=== PATIENT | female | born 1935 | race Caucasian/White ===

== ENCOUNTER 2022-06-15 10:35 | Inpatient (IN) | payer MEDICARE, OTHER, SELFPAY ==
--- NOTE | 2022-06-15 | ECHO_ITS ---
Patient Info Name: Chloe Fontaine Age: 87 years : 1935 Gender: Female Ht: 63 in Wt: 196 lbs BSA: 2.03 m2 HR: 68 bpm BP: 149 / 59 mmHg Heart Rhythm: Sinus Rhythm Technical Quality: Good Exam Date: 06/15/2022 4:07 PM Exam Location: [facility] Pulmonary Exam Room: [place] [id number] Patient Status: Emergency Admit Date: 06/15/2022 Staff Ordering Physician: James Whatley Game Trapper: Pati Kelley RDCS Attending Provider: Karan Garrett MD Referring Physician: Chacorta SWIFT; Exam Type: CA echo doppler color flow Study Info Indications - BILATERAL KENY HX/O AFIB CHF Complete two-dimensional, color flow and Doppler transthoracic echocardiogram is performed. Summary 1. Complete two-dimensional, color flow and Doppler transthoracic echocardiogram is performed. 2. Left ventricular systolic function is normal, estimated at 60-65%. 3. There is moderate concentric increased left ventricular wall thickness. 4. The left ventricular diastolic function is grade I diastolic dysfunction. 5. Linear artifact in right ventricle suggestive of catheter(s), pacemaker lead(s), or ICD lead(s). 6. Right ventricular systolic function is normal. 7. Right atrial chamber dimension is moderately enlarged. 8. Linear artifact in the right atrium suggestive of catheter(s), pacemaker lead(s), or ICD lead(s). 9. There is mild to moderate tricuspid valve regurgitation. 10. Dilated inferior vena cava with no collapse upon inspiration consistent with elevated right atrial pressure, 15 mmHg. Left Ventricle Left ventricular chamber dimension is normal. Left ventricular systolic function is normal, estimated at 60-65%. There is moderate concentric increased left ventricular wall thickness. The left ventricular diastolic function is grade I diastolic dysfunction. Right Ventricle Linear artifact in right ventricle suggestive of catheter(s), pacemaker lead(s), or ICD lead(s). Right ventricular chamber dimension is normal. Right ventricular systolic function is normal. Left Atria Left atrial chamber dimension is normal. Right Atria Linear artifact in the right atrium suggestive of catheter(s), pacemaker lead(s), or ICD lead(s). Right atrial chamber dimension is moderately enlarged. Aortic Valve The aortic valve is trileaflet. There is no aortic valve stenosis. There is no aortic valve regurgitation. There is mild aortic valve calcification. Pulmonic Valve The pulmonic valve is not well visualized. Mitral Valve The mitral valve has normal leaflets. There is no mitral valve stenosis. There is trace mitral valve regurgitation. Tricuspid Valve The tricuspid valve leaflets are normal. There is mild to moderate tricuspid valve regurgitation. Pericardium/Pleural There is no pericardial effusion. Inferior Vena Cava Dilated inferior vena cava with no collapse upon inspiration consistent with elevated right atrial pressure, 15 mmHg. Aorta The aortic root size at the sinus of Valsalva is normal. Left Ventricular Outflow Tract Name Value Normal LVOT 2D LVOT Diameter 2.0 cm LVOT Doppler LVOT Peak Gradient
--- NOTE | ~2022-06-15 | XR_ITS ---
XR chest 1V portable DATE: 06/25/2022 08:47 INDICATION: Left lateral chest pain TECHNIQUE: Portable upright AP chest on 06/25/2022 at 0831 hours COMPARISON: 06/22/2022 CT chest FINDINGS: Left dual-lead pacemaker device with leads overlying right atrium and right ventricle. Cardiomegaly. Aortic calcification. There is pulmonary vascular congestion and redistribution. There are bilateral mild pleural effusions , right greater than left. There are infiltrates and/or atelectasis in the lower lung zones, right gr eater than left. No pneumothorax. Diffuse osteopenia. IMPRESSION: Congestive heart failure Bilateral lower lung infiltrates and/or atelectasis, right greater than left Reviewed, dictated and finalized at location B. Y OPERATOR
--- NOTE | ~2022-06-15 | US_ITS ---
EXAMINATION: US venous doppler [facility] DATE: 06/15/2022 14:43 INDICATION: Bilateral lower limb swelling TECHNIQUE: Grayscale ultrasound images without and with compression and Doppler ultrasound images of the bilateral lower extremity veins were obtained. COMPARISON: None. FINDINGS: The visualized portions of right common femoral vein, profunda (deep) femoral vein, femoral vein, pop liteal vein, posterior tibial veins, peroneal veins, gastrocnemius vein and greater saphenous vein ou tflow are patent. The visualized portions of left common femoral vein, profunda femoral vein, femoral vein, popliteal v ein, posterior tibial veins, peroneal veins, gastrocnemius vein and greater saphenous vein outflow ar e patent. IMPRESSION: 1. No deep venous thrombosis in either lower limb. Reviewed, dictated and finalized at location A. HIATRIC RN
--- NOTE | ~2022-06-15 | CT_ITS ---
EXAMINATION:CT diagnostic chest wo con DATE: 06/22/2022 18:23 INDICATION: Shortness of breath. Right lower lobe airspace disease. TECHNIQUE: Computed tomography (CT) of the chest was performed without intravenous contrast. Automate d exposure control and iterative reconstruction technique were employed. The dose-length product (DLP ) was 342.56 mGy-cm. COMPARISON: Chest 2 views 06/15/2022 FINDINGS: There are small pleural effusions, right worse than left. There is atelectasis in the infer ior lungs with a peripheral and dependent predominance. A calcified left lung nodule and calcified le ft hilar and mediastinal lymph nodes are consistent with old granulomatous disease. There are nodules in the thyroid measuring up to 16 mm. Cardiomegaly is noted. There are coronary artery calcification s. There is a left chest wall pacer with leads in the right atrium and right ventricle. No pericardia l effusion. Calcifications in the spleen are consistent with old granulomatous disease. There are henna dging endplate osteophytes at multiple levels in the spine, consistent with diffuse idiopathic skelet al hyperostosis (DISH). IMPRESSION: 1. Small pleural effusions, right worse than left. 2. Cardiomegaly. 3. Multinodular goiter. Further evaluation is likely not needed given the patient's age. Reviewed, dictated and finalized at location A. HAND IMPRESSION: 1. Small pleural effusions, right worse than left. 2. Cardiomegaly. 3. Multinodular goiter. Further evaluation is likely not needed given the patie nt's age.
--- NOTE | ~2022-06-15 | XR_ITS ---
XR chest 2V 06/15/2022 12:42 Indication: Pulmonary edema Procedure: 2 view chest Comparison: No prior studies for comparison. Findings: There is right lower lobe airspace disease, compatible with pneumonia. Heart size normal. P acemaker leads are in expected position. There is atherosclerosis of the aorta. Cardiomegaly. No pneu mothorax. Impression: 1: Right lower lobe airspace disease, compatible with pneumonia. Reviewed, dictated and finalized at location B. RECLAIM PROCESSOR Impression: 1: Right lower lobe airspace disease, compatible with pneumonia.
--- NOTE | ~2022-06-15 | US_ITS ---
EXAMINATION: US renal BI DATE: 06/22/2022 12:42 INDICATION: Acute kidney injury. TECHNIQUE: Multiple ultrasound grayscale images of the kidneys were obtained. COMPARISON: None. FINDINGS: The right kidney measures 10.5 x 4.5 x 5.6 cm. The left kidney measures 9.5 x 4.2 x 6.2 cm. The kidne ys demonstrate normal parenchymal echogenicity. There is no hydronephrosis. The bladder is normal. IMPRESSION: 1. Normal kidneys. No hydronephrosis. Reviewed, dictated and finalized at location A. DUST SPRAYER
[2022-06-15 10:49] VITALS: BP 149/59; PULSE 62; RESP 18; TEMP 36.6; O2SAT 99
--- NOTE | 2022-06-15 12:07 | ECG_ITS ---
Measurements Intervals [place] Rate: 60 P: -22 [place]: 248 QRS: -57 QRSD: 142 T: 20 QT: 456 QTc: 458 Interpretive Statements ELECTRONIC ATRIAL PACEMAKER RIGHT BUNDLE BRANCH BLOCK LEFT ANTERIOR FASCICULAR BLOCK LOW VOLTAGE- PRECORDIAL LEADS ABNORMAL ECG NO PREVIOUS ECG AVAILABLE FOR COMPARISON Electronically Signed On 06-15-2022 12:47:29 TARIFF EXPERT by Yeison Hensley D.O.
--- NOTE | 2022-06-15 12:27 | ED.GENADULT ---
HPI - General Adult General Chief complaint: Extremity Problem,Nontraumatic Stated complaint: bilat leg swelling Time Seen by Provider: 06/15/22 12:01 History of Present Illness HPI narrative: 87-year-old female presenting to the emergency department for evaluation of worsening lower extremity swelling. Patient does have a history of congestive heart failure. Patient had a recent hospitalization at an outside hospital for pneumonia. At that time patient had some of her medications changed. Patient had been taking furosemide but this was stopped. Patient still taking furosemide. Family states that the patient has had worsening lower extremity edema. Patient has recently moved to the area and has no local primary care physician or colorer. Related Data Home Medications Medication Instructions Recorded Confirmed allopurinol 300 mg tablet 300 mg PO DAILY 06/15/22 06/15/22 amlodipine 10 mg tablet 10 mg PO DAILY 06/15/22 06/15/22 atorvastatin 40 mg tablet 40 mg PO DAILY 06/15/22 06/15/22 carvedilol 6.25 mg tablet 6.25 mg PO BID 06/15/22 06/15/22 estradiol 0.01% (0.1 mg/gram) 1 applic vaginal PRN PRN Vaginal 06/15/22 06/15/22 vaginal cream Dryness glipizide 5 mg tablet 5 mg PO BID 06/15/22 06/15/22 lisinopril 20 mg tablet 20 mg PO DAILY 06/15/22 06/15/22 menthol 0.44 %-zinc oxide 20.6 % 1 applic topical QID PRN Wound Care 06/15/22 06/15/22 topical ointment (Calmoseptine) torsemide 20 mg tablet 20 mg PO QAM 06/15/22 06/15/22 Allergies Allergy/AdvReac Type Severity Reaction Status Date / Time clarithromycin Allergy Swelling Verified 06/15/22 17:52 of Lip/Tongue/Throat doxycycline Allergy Swelling Verified 06/15/22 17:52 of Lip/Tongue/Throat esomeprazole Allergy Swelling Verified 06/15/22 17:52 of Lip/Tongue/Throat iron Allergy Swelling Verified 06/15/22 17:52 of Lip/Tongue/Throat magnesium Allergy Swelling Verified 06/15/22 17:52 of Lip/Tongue/Throat naproxen Allergy Swelling Verified 06/15/22 17:52 of Lip/Tongue/Throat Penicillins Allergy Swelling Verified 06/15/22 17:52 of Lip/Tongue/Throat Sulfa (Sulfonamide Allergy Swelling Verified 06/15/22 17:52 Antibiotics) of Lip/Tongue/Throat tetracycline Allergy Swelling Verified 06/15/22 17:52 of Lip/Tongue/Throat Review of Systems Review of Systems: CONSTITUTIONAL: Denies fever, chills, or sweats. EYES: Denies visual changes, redness, or discharge. ENT: Denies rhinorrhea, congestion, sore throat, or otalgia. CARDIOVASCULAR: Denies any chest pain or shortness of breath but does have lower extremity. RESPIRATORY: Denies cough or dyspnea. GASTROINTESTINAL: Denies abdominal pain, nausea, vomiting, or diarrhea. GENITOURINARY: Denies dysuria or hematuria. SKIN: Denies rash or itching. MUSCULOSKELETAL: Denies back pain, joint pain, or myalgia. NEUROLOGIC: Denies headache, numbness, or weakness. [facility] Past Medical History Medical History Blepharitis of both eyes Bronchitis Carpal tunnel syndrome CHF (congestive heart failure) Diabetes 1.5, managed as type 2 Hypertension Left leg DVT Pacemaker Pancreatitis Pneumonia Rheumatic fever Tendinitis Surgical History Surgical History History of appendectomy History of hysterectomy History of left knee replacement S/P cholecystectomy Status post total hip replacement, right Family History Family History (Updated 06/15/22 @ 14:54 by PAYTON Freedman) Mother Acute myocardial infarction Diabetes mellitus Brain cancer Father Acute myocardial infarction Cerebrovascular accident Heart disease Hypertension Social History Social History Social History: Patient currently lives with her son. Patient does have 3 sons however want just passed
[2022-06-15 12:37] LABS: Basophils Absolute Auto 0.1 K/mm3 (0.0-0.1); Basophils Percent Auto 0.8 % (0.2-1.2); Eosinophils Absolute Auto 0.3 K/mm3 (0-0.3); Hematocrit 44.6 % (37.0-47.0); Hemoglobin 14.3 g/dL (12.0-15.0); Immature Granulocyte Absolute 0.03 K/mm3 (0.00-0.031); Immature Granulocyte Percent A 0.4 % (0-0.5); Lymphocytes Percent Auto 22.6 % (18.3-44.2); Mean Corpuscular HGB Conc 32.1 g/dl (32-36); Mean Corpuscular Hemoglobin 26.7 pg (26-34); Mean Corpuscular Volume 83.4 fl (80-100); Mean Platelet Volume 12.2 fl (7.4-10.4); Monocytes Absolute Auto 0.8 K/mm3 (0.1-0.6); Monocytes Percent Auto 9.6 % (2.6-8.5); Neutrophils Absolute Auto 5.3 K/mm3 (1.3-6.7); Neutrophils Percent Auto 62.6 % (45.5-73.1); Platelet Count Result 176 k/mm3 (150-375); Red Blood Count 5.35 M/mm3 (4.2-5.4); Red Cell Distribution Width 17.5 % (11.5-14.5); White Blood Count 8.4 K/mm3 (4.5-10.0)
[2022-06-15 12:46] LABS: Alanine Aminotransferase 51 U/L (6-35); Albumin Level 2.8 g/dL (3.5-5.1); Alkaline Phosphatase 118 U/L (38-126); Anion Gap 3 mmol/L (8-16); Aspartate Amino Transferase 69 U/L (14-36); Bilirubin,Total 0.5 mg/dL (0.2-1.3); Blood Urea Nitrogen 21 mg/dL (7-17); Calcium 8.7 mg/dL (8.4-10.2); Carbon Dioxide 28 mmol/L (22-30); Chloride 106 mmol/L (98-107); Estimated CRCL calculation 42 ml/min; Estimated Glomerular Filt Rate 59; Glucose 94 mg/dL (65-110); Sodium 137 mmol/L (137-145)
[2022-06-15 12:54] LABS: NT Pro B Type Natriuretic Pept 751 pg/mL (5-100)
--- NOTE | 2022-06-15 13:30 | PM.IMHP ---
H&P: HPI History of Present Illness Date/Time: 06/15/22 13:30 Chief Complaint: Bilateral lower extremity edema Narrative: Patient is an 87-year-old female with the past medical history hypertension, gout, diabetes, AFib, hyperlipidemia who presented to the ED with complaints of bilateral lower extremity edema for the past 3 days. Patient was living with her son in [place] however he had from cancer and patient had moved to the area with her other son. Patient stated that she has been taking torsemide and was told to stop the Lasix. She has also been putting on compression hose. It was noted that the patient did have a reddening area to the right lower extremity that was wrapped in a gauze. Patient's son stated that he feels that she scratched herself. Left lower leg also has some reddened area. Patient's son did draw around the redness, which did seem to be bigger. Patient did have significant pain is an was taken off her John does. Currently she has 3 to 4+ pitting edema bilaterally. Patient did state that she had a cough however it was pretty dry at this time. She denies doing anything different or eating any different. She did state that she was short of breath with any extraneous walking. She has been pretty weak as well. Patient was treated recently for pneumonia about a week and half ago at a hospital down [facility], which the patient did state that she feels better from that. She stated that she had a cough when she was being treated for it. Patient does have diabetes and checks her sugar twice a day. It was also reported that the patient has gained 18 lb in last month. She denies any chest pain, nausea, vomiting, diarrhea, constipation, fatigue, lightheadedness, dizziness, abdominal pain. Her sons did state that she is at baseline walks with a walker and can get herself up out of bed by herself. He did state that she has a hard time getting herself back into bed with her legs. Patient is being admitted to the hospitalist service under observation Review of Systems Review of Systems: All systems reviewed & are unremarkable except as noted in HPI and below PMFSH Past Medical History Medical History Blepharitis of both eyes Bronchitis Carpal tunnel syndrome CHF (congestive heart failure) Diabetes 1.5, managed as type 2 Hypertension Left leg DVT Pacemaker Pancreatitis Pneumonia Rheumatic fever Tendinitis Surgical History Surgical History History of appendectomy History of hysterectomy History of left knee replacement S/P cholecystectomy Status post total hip replacement, right Family History Family History (Updated 06/15/22 @ 14:54 by PAYTON Freedman) Mother Acute myocardial infarction Diabetes mellitus Brain cancer Father Acute myocardial infarction Cerebrovascular accident Heart disease Hypertension Social History Social History Social History: Patient currently lives with her son. Patient does have 3 sons however want just . Patient just recently moved up here from [place] and is currently living in [place]. Patient wishes to be a full code at this time. Smoking status: Never smoker Alcohol intake: never Substance use: never Lack of Transportation: YES Lack of Food: Never True Current Housing: I Have Housing Concerned About Future Housing: No Difficulty Paying Gas/Electric Bills: No Difficulty Paying for Meds: No Currently Unemployed: YES Education: High School Diploma/GED Difficulty w/ Childcare or Family Care: No Living arrangements: with family Additional living arrangements comments: Lives with her son and daughter in law Occupation/Education: retired Additional occupation/education comments: farm Gender identity (if verbalized by the patient):
[2022-06-15] MEDS: FUROSEMIDE INJ 40 MG/4 ML VIAL IV PUSH ×2 (14:51→20:12)
[2022-06-15 16:45] LABS: SARS-CoV-2 RNA PCR Negative
[2022-06-15 17:02] LABS: Hemoglobin A1C 6.7 % (<5.7)
--- NOTE | 2022-06-15 17:25 | ADMGEN ---
This patient, Chloe Fontaine, was admitted to [facility] Surg Room 312-01. Patient/family oriented to hospital policies and general routines including ID bracelet, bed and alarms, visiting hours, pain management, procedures, bathroom and other care routines, personal items, smoking policy, room service/diet, and visiting hours. Information on how to activate the Rapid Response Team has been discussed. Patient/Family are encouraged to report perceived risks to care and to ask questions if they do not understand what they are told or what they should do.
[2022-06-15 17:30] VITALS: BMI 35.5
--- NOTE | 2022-06-15 17:30 | PC.NURSE ---
provider reviewed med list with pt and family in ED
[2022-06-15 18:14] LABS: Glucose Point of Care 113 mg/dl (65-105)
[2022-06-15 19:02] VITALS: BP 139/48; PULSE 61; RESP 18; TEMP 36.3; O2SAT 94
[2022-06-15 19:05] VITALS: PULSE 61
[2022-06-15] MEDS: glipiZIDE 5 MG TABLET PO (19:05)
[2022-06-15] MEDS: carvediloL 6.25 MG TABLET PO (19:05)
[2022-06-15 20:55] LABS: RBC Urine 0-2 /hpf (0-2); Squamous Epithelial Cell Urine Rare /hpf (Few); WBC Urine 0-3 /hpf
[2022-06-15 20:56] LABS: Add Urine Microscopic? YES; Appearance Urine Clear (Clear); Bilirubin Urine Negative (Negative); Blood Urine Trace-intact (Negative); Color Urine Yellow (Yellow); Glucose Urine UA Trace mg/dL (Negative); Ketones Urine Negative (Negative); Leukocyte Esterase Ur Negative LEU/UL (Negative); Nitrate Urine Negative (Negative); Protein Urine 3+ mg/dL (Negative); Urobilinogen Urine 0.2 mg/dL (<2.0); pH Urine 6.5 (5.0-9.0)
[2022-06-15 21:52] VITALS: BP 119/43; PULSE 60; RESP 20; TEMP 36.4; O2SAT 94
[2022-06-16 05:42] VITALS: BP 145/52; PULSE 60; RESP 18; TEMP 36.6; O2SAT 94
[2022-06-16 07:19] LABS: Basophils Absolute Auto 0.1 K/mm3 (0.0-0.1); Eosinophils Absolute Auto 0.3 K/mm3 (0-0.3); Eosinophils Percent Auto 3.8 % (0-4.4); Hematocrit 40.9 % (37.0-47.0); Hemoglobin 12.9 g/dL (12.0-15.0); Immature Granulocyte Absolute 0.03 K/mm3 (0.00-0.031); Immature Granulocyte Percent A 0.4 % (0-0.5); Lymphocytes Absolute Auto 1.93 K/mm3 (0.9-3.2); Lymphocytes Percent Auto 24.4 % (18.3-44.2); Mean Corpuscular HGB Conc 31.5 g/dl (32-36); Mean Corpuscular Hemoglobin 27.2 pg (26-34); Mean Corpuscular Volume 86.1 fl (80-100); Mean Platelet Volume 11.7 fl (7.4-10.4); Monocytes Absolute Auto 0.7 K/mm3 (0.1-0.6); Monocytes Percent Auto 9.1 % (2.6-8.5); Neutrophils Absolute Auto 4.9 K/mm3 (1.3-6.7); Neutrophils Percent Auto 61.3 % (45.5-73.1); Platelet Count Result 162 k/mm3 (150-375); Red Blood Count 4.75 M/mm3 (4.2-5.4); Red Cell Distribution Width 17.5 % (11.5-14.5); White Blood Count 7.9 K/mm3 (4.5-10.0)
[2022-06-16 07:26] LABS: Alanine Aminotransferase 41 U/L (6-35); Albumin Level 2.1 g/dL (3.5-5.1); Alkaline Phosphatase 113 U/L (38-126); Anion Gap 3 mmol/L (8-16); Aspartate Amino Transferase 50 U/L (14-36); Bilirubin,Total 0.4 mg/dL (0.2-1.3); Blood Urea Nitrogen 20 mg/dL (7-17); Calcium 8.4 mg/dL (8.4-10.2); Carbon Dioxide 27 mmol/L (22-30); Chloride 106 mmol/L (98-107); Estimated CRCL calculation 42 ml/min; Estimated Glomerular Filt Rate 59; Glucose 63 mg/dL (65-110); Potassium 3.6 mmol/L (3.4-5.0); Sodium 136 mmol/L (137-145)
[2022-06-16 07:37] LABS: Glucose Point of Care 80 mg/dl (65-105)
[2022-06-16 09:29] VITALS: PULSE 54
[2022-06-16] MEDS: amLODIPine BESYLATE 5 MG TABLET 10 MG PO (09:29)
[2022-06-16] MEDS: ATORVASTATIN 40 MG TABLET PO (09:29)
[2022-06-16] MEDS: glipiZIDE 5 MG TABLET PO (09:29)
[2022-06-16] MEDS: carvediloL 6.25 MG TABLET PO ×2 (09:29→16:57)
[2022-06-16] MEDS: FUROSEMIDE INJ 40 MG/4 ML VIAL IV PUSH ×2 (09:32→20:03)
[2022-06-16] MEDS: lisinopriL 20 MG TABLET PO (09:32)
[2022-06-16] MEDS: allopurinoL 300 MG TABLET PO (09:32)
[2022-06-16 09:36] LABS: Hepatitis B Surface Antigen Negative (Negative)
[2022-06-16 09:42] LABS: HAV RESULT Negative (Negative); Hepatitis B Core IgM Result Negative (Negative)
[2022-06-16 09:54] LABS: Hepatitis C Virus Antibody Negative (Negative)
[2022-06-16 11:28] LABS: Glucose Point of Care 139 mg/dl (65-105)
--- NOTE | 2022-06-16 13:30 | P.PNIM_ITS ---
Progress Note: A&P Assessment and Plan (1) Pneumonia: Qualifiers: Pneumonia type: due to unspecified organism Code(s): J18.9 - Pneumonia, unspecified organism Status: Acute Assessment and Plan: * Was recently treated for PNA at a different hospital about 1.5 week ago * Chest xray indicted PNA * Continue Levaquin, and vanco from ED * Sputum culture ordered * Blood cultures NGTD * WBC stable at 8.4 * Trend labs * Adjust therapy as indicated (2) CHF (congestive heart failure): Qualifiers: Heart failure chronicity: unspecified Heart failure type: unspecified Qualified Code(s): I50.9 - Heart failure, unspecified Code(s): I50.9 - Heart failure, unspecified Status: Acute Assessment and Plan: * BNP elevated at 751 * 40mg IV Lasix given in the ED * 4+ pitting edema bilaterally * Daily weights * Trend urine output * Continue metoprolol, lisinopril * Echo EF of 60-65% with a grade 1 diastolic heart failure * She has chronic diastolic heart failure with possible exacerbation * Continue IV Lasix 40mg IV * Hold home torsemide 20mg Daily * John stokes (3) Transaminitis: Code(s): R74.01 - Elevation of levels of liver transaminase levels Status: Acute Assessment and Plan: * AST/ALT elevated at 50/41 * Hep panel negative * Trend labs * Consider RUQ ultra sound (4) Hypertension: Code(s): I10 - Essential (primary) hypertension Status: Acute Assessment and Plan: * Current BP 145/52 * Continue Home amlodipine, carvedilol, lisinopril * Trend Blood pressure * Adjust therapy as indicated (5) Cellulitis: Code(s): L03.90 - Cellulitis, unspecified Status: Acute Assessment and Plan: * Bilateral lower extremity edema, redness, warmth and pain * Trend redness * Vanco on board * Wound care consult * WBC 7.9 * Trend labs (6) Diabetes 1.5, managed as type 2: Code(s): E13.9 - Other specified diabetes mellitus without complications Status: Acute Assessment and Plan: * Current glucose is 63 * Hold glipizide for now * Accu cheks AC/HS * ISS * trend glucose * A1c 6.7 * Adjust therapy as indicated * Hypoglycemia protocol (7) Neuropathy: Code(s): G62.9 - Polyneuropathy, unspecified Status: Acute Assessment and Plan: * Complaints of burning and pain * Started gabapentin Plan Spoke with the family regarding the anti-diabetic medications Time Spent With Patient Time with patient: Greater than 35 minutes Subjective Date/time seen: 06/16/221329 Interval history: 06/16/221329 Patient was resting in bed comfortably. Patient still complaining of warmth and tenderness of bilateral lower extremity. She does still have 3 to 4+ pitting edema bilaterally. Patient also complains of burning and pain with her legs. She denies any chest pain, shortness a breath, fevers, sweats, chills. She does still have some constipation. Will consult Cardiology. 06/15/22? 13:30 Patient is an 87-year-old female with the past medical history hypertension, gout, diabetes, AFib, hyperlipidemia who presented to the ED with complaints of bilateral lower extremity edema for the past 3 days.? Patient was living with her son in [place] however he had passed
--- NOTE | 2022-06-16 13:30 | PM.IMPN ---
Progress Note: A&P Assessment and Plan (1) Pneumonia: Qualifiers: Pneumonia type: due to unspecified organism Code(s): J18.9 - Pneumonia, unspecified organism Status: Acute Assessment and Plan: Was recently treated for PNA at a different hospital about 1.5 week ago Chest xray indicted PNA Continue Levaquin, and vanco from ED Sputum culture ordered Blood cultures NGTD WBC stable at 8.4 Trend labs Adjust therapy as indicated (2) CHF (congestive heart failure): Qualifiers: Heart failure chronicity: unspecified Heart failure type: unspecified Qualified Code(s): I50.9 - Heart failure, unspecified Code(s): I50.9 - Heart failure, unspecified Status: Acute Assessment and Plan: BNP elevated at 751 40mg IV Lasix given in the ED 4+ pitting edema bilaterally Daily weights Trend urine output Continue metoprolol, lisinopril Echo EF of 60-65% with a grade 1 diastolic heart failure She has chronic diastolic heart failure with possible exacerbation Continue IV Lasix 40mg IV Hold home torsemide 20mg Daily John stokes (3) Transaminitis: Code(s): R74.01 - Elevation of levels of liver transaminase levels Status: Acute Assessment and Plan: AST/ALT elevated at 50/41 Hep panel negative Trend labs Consider RUQ ultra sound (4) Hypertension: Code(s): I10 - Essential (primary) hypertension Status: Acute Assessment and Plan: Current BP 145/52 Continue Home amlodipine, carvedilol, lisinopril Trend Blood pressure Adjust therapy as indicated (5) Cellulitis: Code(s): L03.90 - Cellulitis, unspecified Status: Acute Assessment and Plan: Bilateral lower extremity edema, redness, warmth and pain Trend redness Vanco on board Wound care consult WBC 7.9 Trend labs (6) Diabetes 1.5, managed as type 2: Code(s): E13.9 - Other specified diabetes mellitus without complications Status: Acute Assessment and Plan: Current glucose is 63 Hold glipizide for now Accu cheks AC/HS ISS trend glucose A1c 6.7 Adjust therapy as indicated Hypoglycemia protocol (7) Neuropathy: Code(s): G62.9 - Polyneuropathy, unspecified Status: Acute Assessment and Plan: Complaints of burning and pain Started gabapentin Plan Spoke with the family regarding the anti-diabetic medications Time Spent With Patient Time with patient: Greater than 35 minutes Subjective Date/time seen: 06/16/221329 Interval history: 06/16/221329 Patient was resting in bed comfortably. Patient still complaining of warmth and tenderness of bilateral lower extremity. She does still have 3 to 4+ pitting edema bilaterally. Patient also complains of burning and pain with her legs. She denies any chest pain, shortness a breath, fevers, sweats, chills. She does still have some constipation. Will consult Cardiology. 06/15/22? 13:30 Patient is an 87-year-old female with the past medical history hypertension, gout, diabetes, AFib, hyperlipidemia who presented to the ED with complaints of bilateral lower extremity edema for the past 3 days.? Patient was living with her son in [place] however he had from cancer and patient had moved to the area with her other son.? Patient stated that she has been taking torsemide and was told to stop the Lasix.? She has also been putting on compression hose.? It was noted that the patient did have a reddening area to the right lower extremity that was wrapped in a gauze.? Patient's son stated that he feels that she scratched herself.? Left lower leg also has some reddened area.? Patient's son did draw around the redness, which did seem to be bigger.? Patient did have significant pain is an was taken off her John does.? Currently she has 3 to 4+ pitting edema bilaterally.? Malik
[2022-06-16 13:54] VITALS: BP 140/53; PULSE 59; RESP 16; TEMP 36.6; O2SAT 95
[2022-06-16] MEDS: polyethylene glycoL 3350 17 GM POWD.PACK PO (15:23)
[2022-06-16 16:11] LABS: Glucose Point of Care 66 mg/dl (65-105)
[2022-06-16 16:57] VITALS: PULSE 68
[2022-06-16] MEDS: GABAPENTIN 100 MG CAPSULE PO (17:07)
[2022-06-16] MEDS: DOCUSATE SODIUM 100 MG CAPSULE PO (20:03)
[2022-06-16 20:31] LABS: Glucose Point of Care 119 mg/dl (65-105)
[2022-06-16 22:00] VITALS: BP 135/56; PULSE 61; RESP 16; TEMP 36.3; O2SAT 94
[2022-06-17 06:00] VITALS: BP 144/58; PULSE 59; RESP 14; TEMP 36.3; O2SAT 96
[2022-06-17 07:34] LABS: Basophils Absolute Auto 0.1 K/mm3 (0.0-0.1); Basophils Percent Auto 0.9 % (0.2-1.2); Eosinophils Absolute Auto 0.3 K/mm3 (0-0.3); Eosinophils Percent Auto 3.7 % (0-4.4); Hematocrit 45.1 % (37.0-47.0); Immature Granulocyte Absolute 0.06 K/mm3 (0.00-0.031); Immature Granulocyte Percent A 0.7 % (0-0.5); Immature Platelet Fraction Pct 7.5 % (0.9-11.2); Lymphocytes Absolute Auto 2.22 K/mm3 (0.9-3.2); Lymphocytes Percent Auto 27.6 % (18.3-44.2); Mean Corpuscular Hemoglobin 27.1 pg (26-34); Mean Corpuscular Volume 87.4 fl (80-100); Monocytes Absolute Auto 0.7 K/mm3 (0.1-0.6); Monocytes Percent Auto 9.2 % (2.6-8.5); Neutrophils Absolute Auto 4.7 K/mm3 (1.3-6.7); Neutrophils Percent Auto 57.9 % (45.5-73.1); Platelet Count Result 142 k/mm3 (150-375); Red Blood Count 5.16 M/mm3 (4.2-5.4); Red Cell Distribution Width 17.2 % (11.5-14.5)
[2022-06-17 07:50] LABS: Alanine Aminotransferase 39 U/L (6-35); Albumin Level 2.5 g/dL (3.5-5.1); Alkaline Phosphatase 116 U/L (38-126); Anion Gap 5 mmol/L (8-16); Aspartate Amino Transferase 53 U/L (14-36); Bilirubin,Total 0.4 mg/dL (0.2-1.3); Blood Urea Nitrogen 23 mg/dL (7-17); Calcium 8.5 mg/dL (8.4-10.2); Carbon Dioxide 24 mmol/L (22-30); Chloride 106 mmol/L (98-107); Estimated CRCL calculation 38 ml/min; Estimated Glomerular Filt Rate 53; Glucose 109 mg/dL (65-110); Magnesium 2.2 mg/dL (1.6-2.3); Potassium 3.7 mmol/L (3.4-5.0); Sodium 135 mmol/L (137-145)
[2022-06-17 07:53] LABS: Glucose Point of Care 108 mg/dl (65-105)
[2022-06-17] MEDS: polyethylene glycoL 3350 17 GM POWD.PACK PO (08:41)
[2022-06-17] MEDS: amLODIPine BESYLATE 5 MG TABLET 10 MG PO (08:41)
[2022-06-17 08:42] VITALS: PULSE 59
[2022-06-17] MEDS: DOCUSATE SODIUM 100 MG CAPSULE PO ×2 (08:42→20:44)
[2022-06-17] MEDS: carvediloL 6.25 MG TABLET PO ×2 (08:42→16:42)
[2022-06-17] MEDS: ATORVASTATIN 40 MG TABLET PO (08:42)
[2022-06-17] MEDS: allopurinoL 300 MG TABLET PO (08:42)
[2022-06-17] MEDS: lisinopriL 20 MG TABLET PO (08:43)
[2022-06-17] MEDS: FUROSEMIDE INJ 40 MG/4 ML VIAL IV PUSH ×2 (08:43→20:44)
[2022-06-17] MEDS: GABAPENTIN 100 MG CAPSULE PO ×2 (08:44→09:00)
--- NOTE | 2022-06-17 08:45 | P.PNIM_ITS ---
Progress Note: A&P Assessment and Plan (1) Cellulitis: Code(s): L03.90 - Cellulitis, unspecified Status: Acute Assessment and Plan: * Bilateral lower extremity edema, redness, warmth and pain * redness, warmth worse today * Vanco on board * Wound care consult, called to revisit * WBC 8.0 * Trend labs (2) Pneumonia: Qualifiers: Pneumonia type: due to unspecified organism Code(s): J18.9 - Pneumonia, unspecified organism Status: Acute Assessment and Plan: * Was recently treated for PNA at a different hospital about 1.5 week ago * Chest xray indicted PNA * Continue Levaquin, and vanco from ED * Sputum culture ordered * Blood cultures NGTD * WBC stable at 8.0 * Trend labs * Adjust therapy as indicated (3) CHF (congestive heart failure): Qualifiers: Heart failure chronicity: unspecified Heart failure type: unspecified Qualified Code(s): I50.9 - Heart failure, unspecified Code(s): I50.9 - Heart failure, unspecified Status: Acute Assessment and Plan: * BNP elevated at 751 * 40mg IV Lasix given in the ED * 1+ pitting edema bilaterally * Daily weights * Trend urine output * Continue metoprolol, lisinopril * Echo EF of 60-65% with a grade 1 diastolic heart failure * She has chronic diastolic heart failure with possible exacerbation * Continue IV Lasix 40mg IV * Hold home torsemide 20mg Daily * John stokes (4) Transaminitis: Code(s): R74.01 - Elevation of levels of liver transaminase levels Status: Acute Assessment and Plan: * AST/ALT trending up 53/39 * Hep panel negative * Trend labs * Consider RUQ ultra sound (5) Hypertension: Code(s): I10 - Essential (primary) hypertension Status: Acute Assessment and Plan: * Current BP 144/58 * Continue Home amlodipine, carvedilol, lisinopril * Trend Blood pressure * Adjust therapy as indicated (6) Diabetes 1.5, managed as type 2: Code(s): E13.9 - Other specified diabetes mellitus without complications Status: Acute Assessment and Plan: * Current glucose is 109 * Hold glipizide for now * Accu cheks AC/HS * ISS * trend glucose * A1c 6.7 * Adjust therapy as indicated * Hypoglycemia protocol (7) Neuropathy: Code(s): G62.9 - Polyneuropathy, unspecified Status: Acute Assessment and Plan: * Complaints of burning and pain * Increased gabapentin to 200mg TID Time Spent With Patient Time with patient: Greater than 35 minutes Subjective Date/time seen: 06/17/22 0845 Interval history: 06/17/22 0845 Patient is weak and tired looking. She stated that she is very tired and weak. She states her legs are 5/10 and they do look worse today with increased warmth and redness. Edema is still present however significantly decreased. She denies any chest pain, shortness a breath, fevers, sweats, chills. She did state that she still having some constipation. Talked to Cardiology yesterday and they stated the patient can follow-up with them outpatient. Pain medication has been adjusted along with gabapentin. 06/16/22 1330 Patient was resting in bed comfortably. Patient still complaining of warmth and tenderness of bilateral lower extremity. She does still have 3 to 4+ pitting edema bilaterally
--- NOTE | 2022-06-17 08:45 | PM.IMPN ---
Progress Note: A&P Assessment and Plan (1) Cellulitis: Code(s): L03.90 - Cellulitis, unspecified Status: Acute Assessment and Plan: Bilateral lower extremity edema, redness, warmth and pain redness, warmth worse today Vanco on board Wound care consult, called to revisit WBC 8.0 Trend labs (2) Pneumonia: Qualifiers: Pneumonia type: due to unspecified organism Code(s): J18.9 - Pneumonia, unspecified organism Status: Acute Assessment and Plan: Was recently treated for PNA at a different hospital about 1.5 week ago Chest xray indicted PNA Continue Levaquin, and vanco from ED Sputum culture ordered Blood cultures NGTD WBC stable at 8.0 Trend labs Adjust therapy as indicated (3) CHF (congestive heart failure): Qualifiers: Heart failure chronicity: unspecified Heart failure type: unspecified Qualified Code(s): I50.9 - Heart failure, unspecified Code(s): I50.9 - Heart failure, unspecified Status: Acute Assessment and Plan: BNP elevated at 751 40mg IV Lasix given in the ED 1+ pitting edema bilaterally Daily weights Trend urine output Continue metoprolol, lisinopril Echo EF of 60-65% with a grade 1 diastolic heart failure She has chronic diastolic heart failure with possible exacerbation Continue IV Lasix 40mg IV Hold home torsemide 20mg Daily John stokes (4) Transaminitis: Code(s): R74.01 - Elevation of levels of liver transaminase levels Status: Acute Assessment and Plan: AST/ALT trending up 53/39 Hep panel negative Trend labs Consider RUQ ultra sound (5) Hypertension: Code(s): I10 - Essential (primary) hypertension Status: Acute Assessment and Plan: Current BP 144/58 Continue Home amlodipine, carvedilol, lisinopril Trend Blood pressure Adjust therapy as indicated (6) Diabetes 1.5, managed as type 2: Code(s): E13.9 - Other specified diabetes mellitus without complications Status: Acute Assessment and Plan: Current glucose is 109 Hold glipizide for now Accu cheks AC/HS ISS trend glucose A1c 6.7 Adjust therapy as indicated Hypoglycemia protocol (7) Neuropathy: Code(s): G62.9 - Polyneuropathy, unspecified Status: Acute Assessment and Plan: Complaints of burning and pain Increased gabapentin to 200mg TID Time Spent With Patient Time with patient: Greater than 35 minutes Subjective Date/time seen: 06/17/22 0845 Interval history: 06/17/22 0845 Patient is weak and tired looking. She stated that she is very tired and weak. She states her legs are 5/10 and they do look worse today with increased warmth and redness. Edema is still present however significantly decreased. She denies any chest pain, shortness a breath, fevers, sweats, chills. She did state that she still having some constipation. Talked to Cardiology yesterday and they stated the patient can follow-up with them outpatient. Pain medication has been adjusted along with gabapentin. 06/16/22 1330 Patient was resting in bed comfortably. Patient still complaining of warmth and tenderness of bilateral lower extremity. She does still have 3 to 4+ pitting edema bilaterally. Patient also complains of burning and pain with her legs. She denies any chest pain, shortness a breath, fevers, sweats, chills. She does still have some constipation. 06/15/22? 13:30 Patient is an 87-year-old female with the past medical history hypertension, gout, diabetes, AFib, hyperlipidemia who presented to the ED with complaints of bilateral lower extremity edema for the past 3 days.? Patient was living with her son in [place] however he had from cancer and patient had moved to the area with her other son.? Patient stated that she has been taking torsemide and was told to sto
[2022-06-17 12:05] LABS: Glucose Point of Care 139 mg/dl (65-105)
[2022-06-17] MEDS: GABAPENTIN 100 MG CAPSULE 200 MG PO ×2 (13:28→16:42)
[2022-06-17 14:00] VITALS: BP 120/50; PULSE 63; RESP 20; TEMP 36.8; O2SAT 96
[2022-06-17 16:42] VITALS: PULSE 63
[2022-06-17] MEDS: INSULIN ASPART (*BKC) 100 UNITS/ML SUB-Q (16:42)
[2022-06-17 16:45] LABS: Glucose Point of Care 228 mg/dl (65-105)
[2022-06-17 20:20] VITALS: PULSE 60; RESP 16; O2SAT 98
[2022-06-17 20:49] LABS: Vancomycin Trough 13.3 ug/mL (10.0-20.0)
[2022-06-17 21:29] VITALS: BP 132/51; PULSE 60; RESP 16; TEMP 36.5; O2SAT 98
[2022-06-17 23:25] LABS: Glucose Point of Care 174 mg/dl (65-105)
[2022-06-18 05:22] VITALS: BP 169/60; PULSE 61; RESP 18; TEMP 36.4; O2SAT 94
[2022-06-18 06:05] LABS: Basophils Absolute Auto 0.1 K/mm3 (0.0-0.1); Basophils Percent Auto 0.8 % (0.2-1.2); Eosinophils Absolute Auto 0.4 K/mm3 (0-0.3); Eosinophils Percent Auto 4.3 % (0-4.4); Hematocrit 38.9 % (37.0-47.0); Hemoglobin 12.4 g/dL (12.0-15.0); Immature Granulocyte Absolute 0.06 K/mm3 (0.00-0.031); Immature Granulocyte Percent A 0.7 % (0-0.5); Lymphocytes Absolute Auto 2.13 K/mm3 (0.9-3.2); Lymphocytes Percent Auto 24.1 % (18.3-44.2); Mean Corpuscular HGB Conc 31.9 g/dl (32-36); Mean Corpuscular Hemoglobin 26.3 pg (26-34); Mean Corpuscular Volume 82.6 fl (80-100); Mean Platelet Volume 11.1 fl (7.4-10.4); Monocytes Absolute Auto 0.9 K/mm3 (0.1-0.6); Monocytes Percent Auto 9.6 % (2.6-8.5); Neutrophils Absolute Auto 5.4 K/mm3 (1.3-6.7); Neutrophils Percent Auto 60.5 % (45.5-73.1); Platelet Count Result 150 k/mm3 (150-375); Red Blood Count 4.71 M/mm3 (4.2-5.4); Red Cell Distribution Width 16.9 % (11.5-14.5); White Blood Count 8.9 K/mm3 (4.5-10.0)
[2022-06-18 06:28] LABS: Alanine Aminotransferase 36 U/L (6-35); Albumin Level 2.4 g/dL (3.5-5.1); Alkaline Phosphatase 111 U/L (38-126); Aspartate Amino Transferase 46 U/L (14-36); Bilirubin,Total 0.4 mg/dL (0.2-1.3); Blood Urea Nitrogen 23 mg/dL (7-17); Calcium 8.2 mg/dL (8.4-10.2); Carbon Dioxide 27 mmol/L (22-30); Estimated CRCL calculation 30 ml/min; Estimated Glomerular Filt Rate 39; Glucose 138 mg/dL (65-110)
[2022-06-18 06:29] LABS: Anion Gap 5 mmol/L (8-16); Chloride 103 mmol/L (98-107); Potassium 4.1 mmol/L (3.4-5.0); Sodium 135 mmol/L (137-145)
[2022-06-18 07:37] LABS: Glucose Point of Care 137 mg/dl (65-105)
--- NOTE | 2022-06-18 08:15 | PM.IMPN ---
Progress Note: A&P Assessment and Plan (1) Cellulitis: Code(s): L03.90 - Cellulitis, unspecified Status: Acute Assessment and Plan: Bilateral lower extremity edema, redness, warmth and pain redness, warmth seems about the same no improvements noted Hold on the john hose for now Continue to trend symptoms Vanco and levaquin on board Wound care consult WBC 8.9 Trend labs (2) Pneumonia: Qualifiers: Pneumonia type: due to unspecified organism Code(s): J18.9 - Pneumonia, unspecified organism Status: Acute Assessment and Plan: Was recently treated for PNA at a different hospital about 1.5 week ago Chest xray indicted PNA Continue Levaquin, and vanco from ED Sputum culture ordered, yet not collected Blood cultures NGTD WBC stable at 8.9 Trend labs Adjust therapy as indicated (3) CHF (congestive heart failure): Qualifiers: Heart failure chronicity: unspecified Heart failure type: unspecified Qualified Code(s): I50.9 - Heart failure, unspecified Code(s): I50.9 - Heart failure, unspecified Status: Acute Assessment and Plan: BNP elevated at 751 40mg IV Lasix Q12H stopped change torsemide from 20mg at home to 40mg PO daily 1+ pitting edema bilaterally Daily weights Trend urine output Continue metoprolol, lisinopril Echo EF of 60-65% with a grade 1 diastolic heart failure Chronic diastolic heart failure with exacerbation John hose, hold for now (4) Transaminitis: Code(s): R74.01 - Elevation of levels of liver transaminase levels Status: Acute Assessment and Plan: AST/ALT trending down 46/36 Hep panel negative Trend labs Stable at this point (5) Hypertension: Code(s): I10 - Essential (primary) hypertension Status: Acute Assessment and Plan: Current BP 169/60 Continue Home amlodipine, carvedilol, lisinopril Trend Blood pressure Adjust therapy as indicated (6) Diabetes 1.5, managed as type 2: Code(s): E13.9 - Other specified diabetes mellitus without complications Status: Acute Assessment and Plan: Current glucose is 138 Hold glipizide for now Accu cheks AC/HS ISS trend glucose A1c 6.7 Adjust therapy as indicated Hypoglycemia protocol (7) Neuropathy: Code(s): G62.9 - Polyneuropathy, unspecified Status: Acute Assessment and Plan: Complaints of burning and pain Increased gabapentin to 200mg TID Time Spent With Patient Time with patient: Greater than 35 minutes Subjective Date/time seen: 06/18/22814 Interval history: 06/18/22814 patient stated that her pain is better today. She states that she currently rates at a 3/10 they are still pretty red and hot. Her other complaints were that her arms are both very swollen. Seems like it could be more of an infiltration issue. Creatinine did go up slightly to 1.30 change the IV Lasix to Torsemide, however, increased the dose to 40mg from 20mg which is her home dose. she currently denies any chest pain, shortness a breath, nausea, vomiting, diarrhea, constipation, weakness fatigue. 06/17/22 0845 Patient is weak and tired looking. She stated that she is very tired and weak. She states her legs are 5/10 and they do look worse today with increased warmth and redness. Edema is still present however significantly decreased. She denies any chest pain, shortness a breath, fevers, sweats, chills. She did state that she still having some constipation. Talked to Cardiology yesterday and they stated the patient can follow-up with them outpatient. Pain medication has been adjusted along with gabapentin. 06/16/22 1330 Patient was resting in bed comfortably. Patient still complaining of warmth and tenderness of bilateral lower extremity. She does still have 3 to 4+ pitting edema bilateral
--- NOTE | 2022-06-18 08:15 | P.PNIM_ITS ---
Progress Note: A&P Assessment and Plan (1) Cellulitis: Code(s): L03.90 - Cellulitis, unspecified Status: Acute Assessment and Plan: * Bilateral lower extremity edema, redness, warmth and pain * redness, warmth seems about the same no improvements noted * Hold on the john hose for now * Continue to trend symptoms * Vanco and levaquin on board * Wound care consult * WBC 8.9 * Trend labs (2) Pneumonia: Qualifiers: Pneumonia type: due to unspecified organism Code(s): J18.9 - Pneumonia, unspecified organism Status: Acute Assessment and Plan: * Was recently treated for PNA at a different hospital about 1.5 week ago * Chest xray indicted PNA * Continue Levaquin, and vanco from ED * Sputum culture ordered, yet not collected * Blood cultures NGTD * WBC stable at 8.9 * Trend labs * Adjust therapy as indicated (3) CHF (congestive heart failure): Qualifiers: Heart failure chronicity: unspecified Heart failure type: unspecified Qualified Code(s): I50.9 - Heart failure, unspecified Code(s): I50.9 - Heart failure, unspecified Status: Acute Assessment and Plan: * BNP elevated at 751 * 40mg IV Lasix Q12H stopped * change torsemide from 20mg at home to 40mg PO daily * 1+ pitting edema bilaterally * Daily weights * Trend urine output * Continue metoprolol, lisinopril * Echo EF of 60-65% with a grade 1 diastolic heart failure * Chronic diastolic heart failure with exacerbation * John hose, hold for now (4) Transaminitis: Code(s): R74.01 - Elevation of levels of liver transaminase levels Status: Acute Assessment and Plan: * AST/ALT trending down 46/36 * Hep panel negative * Trend labs * Stable at this point (5) Hypertension: Code(s): I10 - Essential (primary) hypertension Status: Acute Assessment and Plan: * Current BP 169/60 * Continue Home amlodipine, carvedilol, lisinopril * Trend Blood pressure * Adjust therapy as indicated (6) Diabetes 1.5, managed as type 2: Code(s): E13.9 - Other specified diabetes mellitus without complications Status: Acute Assessment and Plan: * Current glucose is 138 * Hold glipizide for now * Accu cheks AC/HS * ISS * trend glucose * A1c 6.7 * Adjust therapy as indicated * Hypoglycemia protocol (7) Neuropathy: Code(s): G62.9 - Polyneuropathy, unspecified Status: Acute Assessment and Plan: * Complaints of burning and pain * Increased gabapentin to 200mg TID Time Spent With Patient Time with patient: Greater than 35 minutes Subjective Date/time seen: 06/18/22814 Interval history: 06/18/22814 patient stated that her pain is better today. She states that she currently rates at a 3/10 they are still pretty red and hot. Her other complaints were that her arms are both very swollen. Seems like it could be more of an infiltra tion issue. Creatinine did go up slightly to 1.30 change the IV Lasix to Torsemide, however, increased the dose to 40mg from 20mg which is her home dose. she currently denies any chest pain, shortness a breath, nausea, vomiting, diarrhea, constipation, weakness fatigue. 06/17/22 08 Patient is weak and tired looking. She stated that she is very tired and weak. She state
[2022-06-18] MEDS: TORSEMIDE 20 MG TABLET 40 MG PO (09:23)
[2022-06-18] MEDS: ENOXAPARIN 40 MG/0.4 ML SYRINGE SUB-Q (09:23)
[2022-06-18] MEDS: amLODIPine BESYLATE 5 MG TABLET 10 MG PO (09:24)
[2022-06-18] MEDS: ATORVASTATIN 40 MG TABLET PO (09:24)
[2022-06-18] MEDS: DOCUSATE SODIUM 100 MG CAPSULE PO ×2 (09:24→20:10)
[2022-06-18] MEDS: lisinopriL 20 MG TABLET PO (09:24)
[2022-06-18 09:25] VITALS: PULSE 74
[2022-06-18] MEDS: allopurinoL 300 MG TABLET PO (09:25)
[2022-06-18] MEDS: carvediloL 6.25 MG TABLET PO ×2 (09:25→17:28)
[2022-06-18] MEDS: polyethylene glycoL 3350 17 GM POWD.PACK PO (09:27)
[2022-06-18] MEDS: GABAPENTIN 100 MG CAPSULE 200 MG PO ×3 (10:51→17:28)
[2022-06-18 11:22] LABS: Glucose Point of Care 264 mg/dl (65-105)
[2022-06-18] MEDS: INSULIN ASPART (*BKC) 100 UNITS/ML SUB-Q ×2 (11:44→17:20)
[2022-06-18 14:00] VITALS: BP 138/66; PULSE 60; RESP 16; TEMP 36.9; O2SAT 92
[2022-06-18 17:18] LABS: Glucose Point of Care 255 mg/dl (65-105)
[2022-06-18] MEDS: BUMETANIDE INJ 1 MG/4 ML VIAL IV PUSH (17:22)
[2022-06-18 17:28] VITALS: PULSE 70
[2022-06-18] MEDS: HYDROcodone/acetaminophen (*CRX) 5-325 MG TABLET 1 TAB PO (17:36)
[2022-06-18 20:00] VITALS: PULSE 70; RESP 16; O2SAT 92
[2022-06-18 20:36] LABS: Glucose Point of Care 223 mg/dl (65-105)
[2022-06-18 22:00] VITALS: BP 121/47; PULSE 60; RESP 16; TEMP 36.7; O2SAT 91
[2022-06-19] VITALS (7 sets, daily range): BP systolic 108–123; BP diastolic 41–52; PULSE 60–61; RESP 16–18; TEMP 36.4–36.7; O2SAT 90–93
[2022-06-19 08:41] LABS: Glucose Point of Care 168 mg/dl (65-105)
[2022-06-19 08:42] LABS: Basophils Absolute Auto 0.1 K/mm3 (0.0-0.1); Basophils Percent Auto 0.6 % (0.2-1.2); Eosinophils Absolute Auto 0.2 K/mm3 (0-0.3); Eosinophils Percent Auto 2.4 % (0-4.4); Hematocrit 40.5 % (37.0-47.0); Hemoglobin 13.1 g/dL (12.0-15.0); Immature Granulocyte Absolute 0.04 K/mm3 (0.00-0.031); Immature Granulocyte Percent A 0.4 % (0-0.5); Immature Platelet Fraction Pct 8.1 % (0.9-11.2); Lymphocytes Absolute Auto 1.96 K/mm3 (0.9-3.2); Lymphocytes Percent Auto 19.9 % (18.3-44.2); Mean Corpuscular HGB Conc 32.3 g/dl (32-36); Mean Corpuscular Hemoglobin 26.9 pg (26-34); Mean Corpuscular Volume 83.2 fl (80-100); Mean Platelet Volume 11.2 fl (7.4-10.4); Monocytes Absolute Auto 0.9 K/mm3 (0.1-0.6); Monocytes Percent Auto 8.8 % (2.6-8.5); Neutrophils Absolute Auto 6.7 K/mm3 (1.3-6.7); Neutrophils Percent Auto 67.9 % (45.5-73.1); Platelet Count Result 144 k/mm3 (150-375); Red Blood Count 4.87 M/mm3 (4.2-5.4); Red Cell Distribution Width 16.9 % (11.5-14.5); White Blood Count 9.8 K/mm3 (4.5-10.0)
[2022-06-19 09:05] LABS: Alanine Aminotransferase 36 U/L (6-35); Albumin Level 2.5 g/dL (3.5-5.1); Alkaline Phosphatase 117 U/L (38-126); Anion Gap 2 mmol/L (8-16); Aspartate Amino Transferase 42 U/L (14-36); Bilirubin,Total 0.5 mg/dL (0.2-1.3); Blood Urea Nitrogen 31 mg/dL (7-17); Calcium 8.6 mg/dL (8.4-10.2); Carbon Dioxide 30 mmol/L (22-30); Chloride 102 mmol/L (98-107); Estimated CRCL calculation 28 ml/min; Estimated Glomerular Filt Rate 36; Glucose 167 mg/dL (65-110); Potassium 4.2 mmol/L (3.4-5.0); Sodium 134 mmol/L (137-145)
[2022-06-19] MEDS: carvediloL 6.25 MG TABLET PO ×2 (09:05→16:26)
[2022-06-19] MEDS: TORSEMIDE 20 MG TABLET 40 MG PO (09:05)
[2022-06-19] MEDS: amLODIPine BESYLATE 5 MG TABLET 10 MG PO (09:05)
[2022-06-19] MEDS: lisinopriL 20 MG TABLET PO (09:05)
[2022-06-19] MEDS: GABAPENTIN 100 MG CAPSULE 200 MG PO ×3 (09:05→17:14)
[2022-06-19] MEDS: DOCUSATE SODIUM 100 MG CAPSULE PO ×2 (09:05→19:49)
[2022-06-19] MEDS: ATORVASTATIN 40 MG TABLET PO (09:05)
[2022-06-19] MEDS: allopurinoL 300 MG TABLET PO (09:05)
[2022-06-19] MEDS: ENOXAPARIN 40 MG/0.4 ML SYRINGE SUB-Q (09:06)
[2022-06-19] MEDS: polyethylene glycoL 3350 17 GM POWD.PACK PO (09:07)
[2022-06-19 09:43] LABS: Vancomycin Trough 25.1 ug/mL (10.0-20.0)
--- NOTE | 2022-06-19 10:14 | PCPTNOTE ---
Attempted to see patient for PT, however patient was working with OT.
[2022-06-19] MEDS: HYDROcodone/acetaminophen (*CRX) 5-325 MG TABLET 1 TAB PO ×2 (10:19→19:45)
[2022-06-19 11:29] LABS: Glucose Point of Care 184 mg/dl (65-105)
--- NOTE | 2022-06-19 14:02 | P.PNIM_ITS ---
Progress Note: A&P Assessment and Plan (1) Pneumonia: Qualifiers: Pneumonia type: due to unspecified organism Code(s): J18.9 - Pneumonia, unspecified organism Status: Acute Assessment and Plan: * Was recently treated for PNA at outside hospital about 1.5 weeks ago * Chest xray on presentation showed right lower lobe airspace disease compatible with pneumonia * Continue Levaquin and vanco which was started on presentation, 06/15 * Sputum culture negative * Blood cultures NGTD * No leukocytosis, patient afebrile * Supportive care. Guaifenesin, incentive spirometry, Cornet valve (2) Cellulitis: Code(s): L03.90 - Cellulitis, unspecified Status: Suspected Assessment and Plan: * Bilateral lower extremity edema, redness, warmth and pain * Unclear if acute infection vs chronic changes * No warmth to palpation today * Patient remains on antibiotics for #1, continue which provides coverage for possible cellulitis (3) Acute kidney injury: Code(s): N17.9 - Acute kidney failure, unspecified Status: Acute Assessment and Plan: * Creatinine up to 1.4 today * Likely due to diuretics * Reduce torsemide back to 20 mg and hold for now. * Monitor renal function (4) CHF (congestive heart failure): Qualifiers: Heart failure chronicity: unspecified Heart failure type: unspecified Qualified Code(s): I50.9 - Heart failure, unspecified Code(s): I50.9 - Heart failure, unspecified Status: Acute Assessment and Plan: * BNP normal for age * CXR with cardiomegaly, no findings of volume overload * Echo showed EF of 60-65% with grade 1 diastolic CHF * Will resume torsemide at a lower dose, 20 mg, patient's home dose to avoid kidney injury and patient is relatively euvolemic * Continue metoprolol and lisinopril (5) Transaminitis: Code(s): R74.01 - Elevation of levels of liver transaminase levels Status: Acute Assessment and Plan: * AST/ALT trending down 42/36 * Hep panel negative * Trend labs * Stable at this point (6) Hypertension: Code(s): I10 - Essential (primary) hypertension Status: Acute Assessment and Plan: * BP remaining generally stable. * Continue Home amlodipine, carvedilol, lisinopril * Trend Blood pressure * Adjust therapy as indicated (7) Diabetes 1.5, managed as type 2: Code(s): E13.9 - Other specified diabetes mellitus without complications Status: Acute Assessment and Plan: * A1c is 6.7 * Continue Accu-Cheks, sliding scale insulin, and hypoglycemic protocol * Home glipizide on hold * Adjust therapy as indicated (8) Neuropathy: Code(s): G62.9 - Polyneuropathy, unspecified Status: Acute Assessment and Plan: * Complains of bilateral lower extremity neuropathy * Increased gabapentin to 200mg TID, continue Subjective Date/time seen: 06/19/22 14:02 Interval history: Date of service: 06/19/2022 Chloe Fontaine is a 7-year-old female with a history of CHF, hypertension, diabetes mellitus, pacemaker placement who is seen in follow-up for pneumonia and lower extremity edema. She complains of worsened pain in her bilateral lower extremities. States they are itchy and burning. She has no change in her redness and states both legs are very tender. She endorses cough productive of clear, foamy sputum. Denies shortness of breath, chest pain, abdominal pain, nausea, or vomiting.
--- NOTE | 2022-06-19 14:02 | PM.IMPN ---
Progress Note: A&P Assessment and Plan (1) Pneumonia: Qualifiers: Pneumonia type: due to unspecified organism Code(s): J18.9 - Pneumonia, unspecified organism Status: Acute Assessment and Plan: Was recently treated for PNA at outside hospital about 1.5 weeks ago Chest xray on presentation showed right lower lobe airspace disease compatible with pneumonia Continue Levaquin and vanco which was started on presentation, 06/15 Sputum culture negative Blood cultures NGTD No leukocytosis, patient afebrile Supportive care. Guaifenesin, incentive spirometry, Cornet valve (2) Cellulitis: Code(s): L03.90 - Cellulitis, unspecified Status: Suspected Assessment and Plan: Bilateral lower extremity edema, redness, warmth and pain Unclear if acute infection vs chronic changes No warmth to palpation today Patient remains on antibiotics for #1, continue which provides coverage for possible cellulitis (3) Acute kidney injury: Code(s): N17.9 - Acute kidney failure, unspecified Status: Acute Assessment and Plan: Creatinine up to 1.4 today Likely due to diuretics Reduce torsemide back to 20 mg and hold for now. Monitor renal function (4) CHF (congestive heart failure): Qualifiers: Heart failure chronicity: unspecified Heart failure type: unspecified Qualified Code(s): I50.9 - Heart failure, unspecified Code(s): I50.9 - Heart failure, unspecified Status: Acute Assessment and Plan: BNP normal for age CXR with cardiomegaly, no findings of volume overload Echo showed EF of 60-65% with grade 1 diastolic CHF Will resume torsemide at a lower dose, 20 mg, patient's home dose to avoid kidney injury and patient is relatively euvolemic Continue metoprolol and lisinopril (5) Transaminitis: Code(s): R74.01 - Elevation of levels of liver transaminase levels Status: Acute Assessment and Plan: AST/ALT trending down 42/36 Hep panel negative Trend labs Stable at this point (6) Hypertension: Code(s): I10 - Essential (primary) hypertension Status: Acute Assessment and Plan: BP remaining generally stable. Continue Home amlodipine, carvedilol, lisinopril Trend Blood pressure Adjust therapy as indicated (7) Diabetes 1.5, managed as type 2: Code(s): E13.9 - Other specified diabetes mellitus without complications Status: Acute Assessment and Plan: A1c is 6.7 Continue Accu-Cheks, sliding scale insulin, and hypoglycemic protocol Home glipizide on hold Adjust therapy as indicated (8) Neuropathy: Code(s): G62.9 - Polyneuropathy, unspecified Status: Acute Assessment and Plan: Complains of bilateral lower extremity neuropathy Increased gabapentin to 200mg TID, continue Subjective Date/time seen: 06/19/22 14:02 Interval history: Date of service: 06/19/2022 Chloe Fontaine is a 7-year-old female with a history of CHF, hypertension, diabetes mellitus, pacemaker placement who is seen in follow-up for pneumonia and lower extremity edema. She complains of worsened pain in her bilateral lower extremities. States they are itchy and burning. She has no change in her redness and states both legs are very tender. She endorses cough productive of clear, foamy sputum. Denies shortness of breath, chest pain, abdominal pain, nausea, or vomiting. Review of Systems Review of Systems: All systems reviewed & are unremarkable except as noted in HPI and below Exam Narrative: General: Well-nourished, well-appearing 87-year-old female, sitting up in bed, comfortable, NARD Neuro: awake, alert and oriented x4, speech clear, no focal neuro deficits noted HEENMT: normocephalic, atraumatic, EOMI, sclerae anicteric Respiratory: clear to auscultation bilaterally, nonlabored breathing Cardio: regular rate, regular rhythm with S1-
[2022-06-19 16:43] LABS: Glucose Point of Care 237 mg/dl (65-105)
[2022-06-19] MEDS: INSULIN ASPART (*BKC) 100 UNITS/ML SUB-Q (17:14)
--- NOTE | 2022-06-19 17:20 | PC.NURSE ---
this rn contacted maintenance per family and pt request due to closed captioning not working on the television. maintenance attempted to fix the problem and is moving it to IT.
--- NOTE | 2022-06-19 18:53 | PC.NURSE ---
patient's iv infiltrated. Multiple attempts to place peripheral line without success. Patient having edema bilat arms. Anai called Dr. Calderón and received orders for picc line. [place] notified, but is unable to place r/t cellulitis. Dr. Calderón notified and orders received to change levaquin to po. Nikki is off until Wednesday. Dr. Calderón stated to have preload supervisor and/or night nurse try again for peripheral.
[2022-06-19] MEDS: guaiFENesin 12 HR 600 MG TABCR PO (20:43)
[2022-06-19 22:19] LABS: Glucose Point of Care 266 mg/dl (65-105)
[2022-06-20] MEDS: HYDROcodone/acetaminophen (*CRX) 5-325 MG TABLET 1 TAB PO ×2 (03:55→08:42)
[2022-06-20 06:00] VITALS: BP 129/53; PULSE 60; RESP 17; TEMP 36.3; O2SAT 91
[2022-06-20 06:38] LABS: Hematocrit 39.6 % (37.0-47.0); Hemoglobin 12.5 g/dL (12.0-15.0); Immature Platelet Fraction Pct 10.4 % (0.9-11.2); Mean Corpuscular HGB Conc 31.6 g/dl (32-36); Mean Corpuscular Hemoglobin 27.4 pg (26-34); Mean Corpuscular Volume 86.7 fl (80-100); Mean Platelet Volume 12.6 fl (7.4-10.4); Platelet Count Result 156 k/mm3 (150-375); Red Blood Count 4.57 M/mm3 (4.2-5.4); Red Cell Distribution Width 16.7 % (11.5-14.5); White Blood Count 9.2 K/mm3 (4.5-10.0)
[2022-06-20 06:46] LABS: Anion Gap 3 mmol/L (8-16); Blood Urea Nitrogen 39 mg/dL (7-17); Calcium 8.4 mg/dL (8.4-10.2); Carbon Dioxide 29 mmol/L (22-30); Chloride 100 mmol/L (98-107); Estimated CRCL calculation 33 ml/min; Estimated Glomerular Filt Rate 43; Glucose 170 mg/dL (65-110); Potassium 4.6 mmol/L (3.4-5.0); Sodium 132 mmol/L (137-145)
[2022-06-20 07:31] LABS: Glucose Point of Care 157 mg/dl (65-105)
[2022-06-20] MEDS: allopurinoL 300 MG TABLET PO (08:41)
[2022-06-20 08:42] VITALS: PULSE 74
[2022-06-20] MEDS: carvediloL 6.25 MG TABLET PO ×2 (08:42→17:48)
[2022-06-20] MEDS: guaiFENesin 12 HR 600 MG TABCR PO ×2 (08:42→21:00)
[2022-06-20] MEDS: ATORVASTATIN 40 MG TABLET PO (08:42)
[2022-06-20] MEDS: amLODIPine BESYLATE 5 MG TABLET 10 MG PO (08:42)
[2022-06-20] MEDS: GABAPENTIN 100 MG CAPSULE 200 MG PO ×3 (08:42→17:48)
[2022-06-20] MEDS: lisinopriL 20 MG TABLET PO (08:42)
[2022-06-20] MEDS: DOCUSATE SODIUM 100 MG CAPSULE PO ×2 (08:42→21:00)
[2022-06-20] MEDS: ENOXAPARIN 40 MG/0.4 ML SYRINGE SUB-Q (08:42)
[2022-06-20] MEDS: polyethylene glycoL 3350 17 GM POWD.PACK PO (08:44)
[2022-06-20 11:26] LABS: Glucose Point of Care 227 mg/dl (65-105)
--- NOTE | 2022-06-20 11:30 | PM.IMPN ---
Progress Note: A&P Assessment and Plan (1) Pneumonia: Qualifiers: Pneumonia type: due to unspecified organism Code(s): J18.9 - Pneumonia, unspecified organism Status: Acute Assessment and Plan: Was recently treated for PNA at outside hospital about 1.5 weeks ago Chest xray on presentation showed right lower lobe airspace disease compatible with pneumonia Continue Levaquin and vanco which was started on presentation, 06/15 Sputum culture negative Blood cultures NGTD No leukocytosis, patient afebrile Supportive care. Guaifenesin, incentive spirometry, Cornet valve (2) Cellulitis: Code(s): L03.90 - Cellulitis, unspecified Status: Suspected Assessment and Plan: Bilateral lower extremity edema, redness, warmth and pain Unclear if acute infection vs chronic changes warmth noted to palpation however better than it has been Patient remains on antibiotics for #1, continue which provides coverage for possible cellulitis (3) Acute kidney injury: Code(s): N17.9 - Acute kidney failure, unspecified Status: Acute Assessment and Plan: Creatinine down to 1.20 today Likely due to diuretics Reduce torsemide back to 20 mg and hold for now. Monitor renal function (4) CHF (congestive heart failure): Qualifiers: Heart failure chronicity: unspecified Heart failure type: unspecified Qualified Code(s): I50.9 - Heart failure, unspecified Code(s): I50.9 - Heart failure, unspecified Status: Acute Assessment and Plan: BNP normal for age CXR with cardiomegaly, no findings of volume overload Echo showed EF of 60-65% with grade 1 diastolic CHF Will resume torsemide at a lower dose, 20 mg, patient's home dose to avoid kidney injury and patient is relatively euvolemic Continue metoprolol and lisinopril (5) Transaminitis: Code(s): R74.01 - Elevation of levels of liver transaminase levels Status: Acute Assessment and Plan: AST/ALT trending down 42/36 Hep panel negative Trend labs Stable at this point (6) Hypertension: Code(s): I10 - Essential (primary) hypertension Status: Acute Assessment and Plan: BP remaining generally stable. Continue Home amlodipine, carvedilol, lisinopril Trend Blood pressure Adjust therapy as indicated (7) Diabetes 1.5, managed as type 2: Code(s): E13.9 - Other specified diabetes mellitus without complications Status: Acute Assessment and Plan: A1c is 6.7 Continue Accu-Cheks, sliding scale insulin, and hypoglycemic protocol Home glipizide on hold Adjust therapy as indicated (8) Neuropathy: Code(s): G62.9 - Polyneuropathy, unspecified Status: Acute Assessment and Plan: Complains of bilateral lower extremity neuropathy Increased gabapentin to 200mg TID, continue Time Spent With Patient Time with patient: Greater than 35 minutes Subjective Date/time seen: 06/20/22 1130 Interval history: 06/20/22 1130 Feels ok today. She is concerned that she has not been able to walk since she has been here. Her arms appear to be better today. Her legs are still hot, however the redness is going down. She is also stating that she is not able to stand on her feet due to the swelling of the lower extremities. She denied any chest pain, shortness of breath, nausea, vomiting, diarrhea, constipation, weakness, and fatigue. 06/19/22 1402 Chloe Fontaine is a 87-year-old female with a history of CHF, hypertension, diabetes mellitus, pacemaker placement who is seen in follow-up for pneumonia and lower extremity edema.? She complains of worsened pain in her bilateral lower extremities.? States they are itchy and burning.? She has no change in her redness and states both legs are very tender.? She endorses cough productive of clear, foamy sputum.? Denies shortness of breath, chest pain, abdo
--- NOTE | 2022-06-20 11:30 | P.PNIM_ITS ---
Progress Note: A&P Assessment and Plan (1) Pneumonia: Qualifiers: Pneumonia type: due to unspecified organism Code(s): J18.9 - Pneumonia, unspecified organism Status: Acute Assessment and Plan: * Was recently treated for PNA at outside hospital about 1.5 weeks ago * Chest xray on presentation showed right lower lobe airspace disease compatible with pneumonia * Continue Levaquin and vanco which was started on presentation, 06/15 * Sputum culture negative * Blood cultures NGTD * No leukocytosis, patient afebrile * Supportive care. Guaifenesin, incentive spirometry, Cornet valve (2) Cellulitis: Code(s): L03.90 - Cellulitis, unspecified Status: Suspected Assessment and Plan: * Bilateral lower extremity edema, redness, warmth and pain * Unclear if acute infection vs chronic changes * warmth noted to palpation however better than it has been * Patient remains on antibiotics for #1, continue which provides coverage for possible cellulitis (3) Acute kidney injury: Code(s): N17.9 - Acute kidney failure, unspecified Status: Acute Assessment and Plan: * Creatinine down to 1.20 today * Likely due to diuretics * Reduce torsemide back to 20 mg and hold for now. * Monitor renal function (4) CHF (congestive heart failure): Qualifiers: Heart failure chronicity: unspecified Heart failure type: unspecified Qualified Code(s): I50.9 - Heart failure, unspecified Code(s): I50.9 - Heart failure, unspecified Status: Acute Assessment and Plan: * BNP normal for age * CXR with cardiomegaly, no findings of volume overload * Echo showed EF of 60-65% with grade 1 diastolic CHF * Will resume torsemide at a lower dose, 20 mg, patient's home dose to avoid kidney injury and patient is relatively euvolemic * Continue metoprolol and lisinopril (5) Transaminitis: Code(s): R74.01 - Elevation of levels of liver transaminase levels Status: Acute Assessment and Plan: * AST/ALT trending down 42/36 * Hep panel negative * Trend labs * Stable at this point (6) Hypertension: Code(s): I10 - Essential (primary) hypertension Status: Acute Assessment and Plan: * BP remaining generally stable. * Continue Home amlodipine, carvedilol, lisinopril * Trend Blood pressure * Adjust therapy as indicated (7) Diabetes 1.5, managed as type 2: Code(s): E13.9 - Other specified diabetes mellitus without complications Status: Acute Assessment and Plan: * A1c is 6.7 * Continue Accu-Cheks, sliding scale insulin, and hypoglycemic protocol * Home glipizide on hold * Adjust therapy as indicated (8) Neuropathy: Code(s): G62.9 - Polyneuropathy, unspecified Status: Acute Assessment and Plan: * Complains of bilateral lower extremity neuropathy * Increased gabapentin to 200mg TID, continue Time Spent With Patient Time with patient: Greater than 35 minutes Subjective Date/time seen: 06/20/221129 Interval history: 06/20/221129 Feels ok today. She is concerned that she has not been able to walk since she has been here. Her arms appear to be better today. Her legs are still hot, however the redness is going down. She is also stating that she is not able to stand on her feet due to the swelling of the lower extremities. She denied any chest pain, shortness of breath, nausea, vomiting, diarrhea, consti
[2022-06-20] MEDS: INSULIN ASPART (*BKC) 100 UNITS/ML SUB-Q ×2 (12:15→17:47)
[2022-06-20 14:00] VITALS: BP 114/50; PULSE 64; RESP 17; TEMP 36.6; O2SAT 94
[2022-06-20 16:45] LABS: Glucose Point of Care 239 mg/dl (65-105)
[2022-06-20 17:48] VITALS: PULSE 74
[2022-06-20 20:00] VITALS: PULSE 60; RESP 20; O2SAT 90
[2022-06-20 20:36] LABS: Glucose Point of Care 218 mg/dl (65-105)
[2022-06-20 22:00] VITALS: BP 103/47; PULSE 60; RESP 20; TEMP 36.7; O2SAT 90
[2022-06-21] VITALS (7 sets, daily range): BP systolic 101–129; BP diastolic 34–54; PULSE 61–63; RESP 14–18; TEMP 36.1–37.2; O2SAT 91–96
[2022-06-21] MEDS: HYDROcodone/acetaminophen (*CRX) 5-325 MG TABLET 1 TAB PO ×3 (05:51→20:01)
[2022-06-21 07:06] LABS: Basophils Absolute Auto 0.1 K/mm3 (0.0-0.1); Basophils Percent Auto 0.6 % (0.2-1.2); Eosinophils Absolute Auto 0.3 K/mm3 (0-0.3); Eosinophils Percent Auto 3.1 % (0-4.4); Hematocrit 35.9 % (37.0-47.0); Hemoglobin 11.4 g/dL (12.0-15.0); Immature Granulocyte Absolute 0.06 K/mm3 (0.00-0.031); Immature Granulocyte Percent A 0.7 % (0-0.5); Lymphocytes Absolute Auto 2.07 K/mm3 (0.9-3.2); Lymphocytes Percent Auto 24.6 % (18.3-44.2); Mean Corpuscular HGB Conc 31.8 g/dl (32-36); Mean Corpuscular Hemoglobin 26.4 pg (26-34); Mean Corpuscular Volume 83.1 fl (80-100); Mean Platelet Volume 11.9 fl (7.4-10.4); Monocytes Absolute Auto 0.8 K/mm3 (0.1-0.6); Monocytes Percent Auto 9.3 % (2.6-8.5); Neutrophils Absolute Auto 5.2 K/mm3 (1.3-6.7); Neutrophils Percent Auto 61.7 % (45.5-73.1); Platelet Count Result 164 k/mm3 (150-375); Red Blood Count 4.32 M/mm3 (4.2-5.4); Red Cell Distribution Width 16.5 % (11.5-14.5); White Blood Count 8.4 K/mm3 (4.5-10.0)
[2022-06-21 07:24] LABS: Alanine Aminotransferase 39 U/L (6-35); Albumin Level 2.4 g/dL (3.5-5.1); Alkaline Phosphatase 107 U/L (38-126); Anion Gap 3 mmol/L (8-16); Aspartate Amino Transferase 59 U/L (14-36); Bilirubin,Total 0.3 mg/dL (0.2-1.3); Blood Urea Nitrogen 46 mg/dL (7-17); Calcium 8.1 mg/dL (8.4-10.2); Carbon Dioxide 28 mmol/L (22-30); Chloride 99 mmol/L (98-107); Estimated CRCL calculation 25 ml/min; Estimated Glomerular Filt Rate 31; Glucose 155 mg/dL (65-110); Magnesium 2.2 mg/dL (1.6-2.3); Potassium 4.7 mmol/L (3.4-5.0); Sodium 130 mmol/L (137-145)
[2022-06-21 08:06] LABS: Glucose Point of Care 146 mg/dl (65-105)
[2022-06-21] MEDS: ATORVASTATIN 40 MG TABLET PO (08:49)
[2022-06-21] MEDS: lisinopriL 20 MG TABLET PO (08:49)
[2022-06-21] MEDS: DOCUSATE SODIUM 100 MG CAPSULE PO ×2 (08:49→20:02)
[2022-06-21] MEDS: guaiFENesin 12 HR 600 MG TABCR PO ×2 (08:49→20:02)
[2022-06-21] MEDS: amLODIPine BESYLATE 5 MG TABLET 10 MG PO (08:50)
[2022-06-21] MEDS: GABAPENTIN 100 MG CAPSULE 200 MG PO ×3 (08:50→18:34)
[2022-06-21] MEDS: ENOXAPARIN 40 MG/0.4 ML SYRINGE SUB-Q (08:50)
[2022-06-21] MEDS: allopurinoL 300 MG TABLET PO (08:50)
[2022-06-21] MEDS: carvediloL 6.25 MG TABLET PO ×2 (08:50→18:34)
[2022-06-21] MEDS: polyethylene glycoL 3350 17 GM POWD.PACK PO (08:50)
[2022-06-21 11:35] LABS: Glucose Point of Care 138 mg/dl (65-105)
[2022-06-21] MEDS: levoFLOXacin 750 MG TABLET PO (13:32)
--- NOTE | 2022-06-21 15:32 | P.PNIM_ITS ---
Progress Note: A&P Assessment and Plan (1) Pneumonia: Qualifiers: Pneumonia type: due to unspecified organism Code(s): J18.9 - Pneumonia, unspecified organism Status: Acute Assessment and Plan: Was recently treated for PNA at outside hospital about 1.5 weeks ago * Chest xray on presentation showed right lower lobe airspace disease compatible with pneumonia * Completed 7 day course of Levaquin and Vancomycin. Will discontinue today. * Sputum culture negative * Blood cultures negative * No leukocytosis, patient afebrile * Supportive care. Guaifenesin, incentive spirometry, Cornet valve (2) Cellulitis: Code(s): L03.90 - Cellulitis, unspecified Status: Suspected Assessment and Plan: Resolved. Bilateral lower extremity edema, redness, warmth and pain * Unclear if acute infection vs chronic changes * No signs of acute infection on exam today. * Completed antibiotics as above. * Supportive care (3) Acute kidney injury: Code(s): N17.9 - Acute kidney failure, unspecified Status: Acute Assessment and Plan: And on presentation was 0.9 * Increase in creatinine to 1.6 today * Likely due to diuresis * Hold home torsemide and lisinopril * Discontinue vancomycin * Monitor renal function closely * Consider renal US if no improvement/worsening (4) CHF (congestive heart failure): Qualifiers: Heart failure chronicity: unspecified Heart failure type: unspecified Qualified Code(s): I50.9 - Heart failure, unspecified Code(s): I50.9 - Heart failure, unspecified Status: Acute Assessment and Plan: CXR with cardiomegaly, no findings of volume overload * Echo showed EF of 60-65% with grade 1 diastolic CHF * Home torsemide on hold. * Continue metoprolol. Hold lisinopril (5) Transaminitis: Code(s): R74.01 - Elevation of levels of liver transaminase levels Status: Acute Assessment and Plan: LFTs remaining stable. * Hep panel negative * Trend labs (6) Hypertension: Code(s): I10 - Essential (primary) hypertension Status: Acute Assessment and Plan: Blood pressures remaining generally stable. Soft BP this afternoon but improving * Continue home amlodipine, carvedilol. Hold lisinopril * Orthostatics negative. * Trend blood pressure (7) Diabetes 1.5, managed as type 2: Code(s): E13.9 - Other specified diabetes mellitus without complications Status: Acute Assessment and Plan: A1c is 6.7 * Continue Accu-Cheks, sliding scale insulin, and hypoglycemic protocol * Home glipizide on hold Subjective Date/time seen: 06/21/22 15:32 Interval history: Date of service: 06/21/2022 Chloe Fontaine is a 87-year-old female with a history of CHF, hypertension, diabetes mellitus, pacemaker placement who is seen in follow-up for pneumonia and lower extremity edema. Today she complains of back pain, stating her back is stiff ?like it is full of concrete. ? she feels very weak and is having trouble getting around. She states she cannot move. She denies shortness of breath but does endorse cough productive of green sputum. Denies hemoptysis. States she is ?rattling? in her chest today. She denies abdominal pain, nausea, or vomiting. She is tolerating her diet. Her legs are less bothersome. Review of Systems Review of Systems: All systems reviewed & are unremarkable except as noted in HPI and below Exam
--- NOTE | 2022-06-21 15:32 | PM.IMPN ---
Progress Note: A&P Assessment and Plan (1) Pneumonia: Qualifiers: Pneumonia type: due to unspecified organism Code(s): J18.9 - Pneumonia, unspecified organism Status: Acute Assessment and Plan: Was recently treated for PNA at outside hospital about 1.5 weeks ago Chest xray on presentation showed right lower lobe airspace disease compatible with pneumonia Completed 7 day course of Levaquin and Vancomycin. Will discontinue today. Sputum culture negative Blood cultures negative No leukocytosis, patient afebrile Supportive care. Guaifenesin, incentive spirometry, Cornet valve (2) Cellulitis: Code(s): L03.90 - Cellulitis, unspecified Status: Suspected Assessment and Plan: Resolved. Bilateral lower extremity edema, redness, warmth and pain Unclear if acute infection vs chronic changes No signs of acute infection on exam today. Completed antibiotics as above. Supportive care (3) Acute kidney injury: Code(s): N17.9 - Acute kidney failure, unspecified Status: Acute Assessment and Plan: And on presentation was 0.9 Increase in creatinine to 1.6 today Likely due to diuresis Hold home torsemide and lisinopril Discontinue vancomycin Monitor renal function closely Consider renal US if no improvement/worsening (4) CHF (congestive heart failure): Qualifiers: Heart failure chronicity: unspecified Heart failure type: unspecified Qualified Code(s): I50.9 - Heart failure, unspecified Code(s): I50.9 - Heart failure, unspecified Status: Acute Assessment and Plan: CXR with cardiomegaly, no findings of volume overload Echo showed EF of 60-65% with grade 1 diastolic CHF Home torsemide on hold. Continue metoprolol. Hold lisinopril (5) Transaminitis: Code(s): R74.01 - Elevation of levels of liver transaminase levels Status: Acute Assessment and Plan: LFTs remaining stable. Hep panel negative Trend labs (6) Hypertension: Code(s): I10 - Essential (primary) hypertension Status: Acute Assessment and Plan: Blood pressures remaining generally stable. Soft BP this afternoon but improving Continue home amlodipine, carvedilol. Hold lisinopril Orthostatics negative. Trend blood pressure (7) Diabetes 1.5, managed as type 2: Code(s): E13.9 - Other specified diabetes mellitus without complications Status: Acute Assessment and Plan: A1c is 6.7 Continue Accu-Cheks, sliding scale insulin, and hypoglycemic protocol Home glipizide on hold Subjective Date/time seen: 06/21/22 15:32 Interval history: Date of service: 06/21/2022 Chloe Fontaine is a 87-year-old female with a history of CHF, hypertension, diabetes mellitus, pacemaker placement who is seen in follow-up for pneumonia and lower extremity edema. Today she complains of back pain, stating her back is stiff ?like it is full of concrete. ? she feels very weak and is having trouble getting around. She states she cannot move. She denies shortness of breath but does endorse cough productive of green sputum. Denies hemoptysis. States she is ?rattling? in her chest today. She denies abdominal pain, nausea, or vomiting. She is tolerating her diet. Her legs are less bothersome. Review of Systems Review of Systems: All systems reviewed & are unremarkable except as noted in HPI and below Exam Narrative: General: Well-nourished, well-appearing 87-year-old female, sitting up in bed, comfortable, NARD Neuro: awake, alert and oriented x4, speech clear, no focal neuro deficits noted HEENMT: normocephalic, atraumatic, EOMI, sclerae anicteric Back: no point tenderness to palpation Respiratory: clear to auscultation bilaterally, nonlabored breathing Cardio: regular rate, regular rhythm with S1-S2 Abdomen: nondistended, normoactive bowel sounds, soft, nontender to palpation Extremiti
[2022-06-21 16:25] LABS: Glucose Point of Care 169 mg/dl (65-105)
[2022-06-21 20:49] LABS: Glucose Point of Care 256 mg/dl (65-105)
[2022-06-21 22:34] LABS: Vancomycin Trough 22.4 ug/mL (10.0-20.0)
[2022-06-22] VITALS (8 sets, daily range): BP systolic 114–144; BP diastolic 45–63; PULSE 58–80; RESP 16–24; TEMP 36.3–36.7; O2SAT 93–97
[2022-06-22 07:16] LABS: Hematocrit 35.7 % (37.0-47.0); Hemoglobin 11.3 g/dL (12.0-15.0); Mean Corpuscular HGB Conc 31.7 g/dl (32-36); Mean Corpuscular Hemoglobin 26.7 pg (26-34); Mean Corpuscular Volume 84.4 fl (80-100); Mean Platelet Volume 12.1 fl (7.4-10.4); Platelet Count Result 210 k/mm3 (150-375); Red Blood Count 4.23 M/mm3 (4.2-5.4); Red Cell Distribution Width 16.3 % (11.5-14.5); White Blood Count 7.6 K/mm3 (4.5-10.0)
[2022-06-22 07:55] LABS: Anion Gap 5 mmol/L (8-16); Blood Urea Nitrogen 57 mg/dL (7-17); Carbon Dioxide 26 mmol/L (22-30); Chloride 97 mmol/L (98-107); Estimated CRCL calculation 25 ml/min; Estimated Glomerular Filt Rate 31; Glucose 143 mg/dL (65-110); Potassium 4.9 mmol/L (3.4-5.0); Sodium 128 mmol/L (137-145)
[2022-06-22 08:15] LABS: Glucose Point of Care 151 mg/dl (65-105)
[2022-06-22] MEDS: allopurinoL 300 MG TABLET PO (09:23)
[2022-06-22] MEDS: DOCUSATE SODIUM 100 MG CAPSULE PO ×2 (09:23→20:28)
[2022-06-22] MEDS: GABAPENTIN 100 MG CAPSULE 200 MG PO ×3 (09:23→16:57)
[2022-06-22] MEDS: ATORVASTATIN 40 MG TABLET PO (09:23)
[2022-06-22] MEDS: carvediloL 6.25 MG TABLET PO ×2 (09:24→16:58)
[2022-06-22] MEDS: guaiFENesin 12 HR 600 MG TABCR PO ×2 (09:24→20:28)
[2022-06-22] MEDS: amLODIPine BESYLATE 5 MG TABLET 10 MG PO (09:24)
[2022-06-22] MEDS: ENOXAPARIN 40 MG/0.4 ML SYRINGE SUB-Q (09:24)
[2022-06-22] MEDS: polyethylene glycoL 3350 17 GM POWD.PACK PO (09:25)
--- NOTE | 2022-06-22 10:00 | PCNWS ---
Weekly nutritional screen. Patient is tolerating current 2gm low NA/heart healthy diet with adequate intake at 75-100% most meals. No weight loss reported. No nutritional needs at this time.
--- NOTE | 2022-06-22 12:15 | P.PNIM_ITS ---
Progress Note: A&P Assessment and Plan (1) Pneumonia: Qualifiers: Pneumonia type: due to unspecified organism Code(s): J18.9 - Pneumonia, unspecified organism Status: Acute Assessment and Plan: Was recently treated for PNA at outside hospital about 1.5 weeks ago * Chest xray on presentation showed right lower lobe airspace disease compatible with pneumonia * Completed 7 day course of Levaquin and Vancomycin on 06/21 * Sputum culture negative * Blood cultures negative * No leukocytosis, patient afebrile * Supportive care. Guaifenesin, incentive spirometry, Cornet valve (2) Cellulitis: Code(s): L03.90 - Cellulitis, unspecified Status: Suspected Assessment and Plan: Resolved. * Remaining erythema is likely due to chronic venous insufficiency * No signs of acute infection on exam today. * Completed antibiotics as above. * Supportive care (3) Acute kidney injury: Code(s): N17.9 - Acute kidney failure, unspecified Status: Acute Assessment and Plan: Creatinine on presentation was 0.9 * Increase in creatinine to 1.6 * Most likely secondary to diuresis and fluid restriction * Torsemide and lisinopril on hold * Vancomycin discontinued * Fluid restriction stopped on 06/21 * Renal US pending * Consult to nephrology given difficulty with balancing volume status. Holding on IV fluids at this time given CHF. Recommendations appreciated. * Monitor renal function closely (4) CHF (congestive heart failure): Qualifiers: Heart failure chronicity: unspecified Heart failure type: unspecified Qualified Code(s): I50.9 - Heart failure, unspecified Code(s): I50.9 - Heart failure, unspecified Status: Acute Assessment and Plan: CXR with cardiomegaly, no findings of volume overload * Echo showed EF of 60-65% with grade 1 diastolic CHF * Home torsemide on hold. * Continue metoprolol. Hold lisinopril (5) Transaminitis: Code(s): R74.01 - Elevation of levels of liver transaminase levels Status: Acute Assessment and Plan: LFTs remaining stable. * Hepatitis panel negative * Trend labs (6) Hypertension: Code(s): I10 - Essential (primary) hypertension Status: Acute Assessment and Plan: Blood pressures remaining stable, slightly soft * Continue home amlodipine, carvedilol. Hold lisinopril * Monitor orthostatics * Trend blood pressure (7) Diabetes 1.5, managed as type 2: Code(s): E13.9 - Other specified diabetes mellitus without complications Status: Acute Assessment and Plan: A1c is 6.7 * Continue Accu-Cheks, sliding scale insulin, and hypoglycemic protocol * Home glipizide on hold (8) Hyponatremia: Code(s): E87.1 - Hypo-osmolality and hyponatremia Status: Acute Assessment and Plan: Sodium 128 today after stopping fluid restriction * Continue to monitor sodium levels. Subjective Date/time seen: 06/22/22 12:15 Interval history: Date of service: 06/22/2022 Chloe Fontaine is a 87-year-old female with a history of CHF, hypertension, diabetes mellitus, pacemaker placement who is seen in follow-up for pneumonia and lower extremity edema. States she is feeling better today. She does complain of some bilateral lower extremity neuropathy but states this is improved. She is no longer coughing. She was able to tolerate her breakfast. She had her Cary catheter removed and has been able to
--- NOTE | 2022-06-22 12:15 | PM.IMPN ---
Progress Note: A&P Assessment and Plan (1) Pneumonia: Qualifiers: Pneumonia type: due to unspecified organism Code(s): J18.9 - Pneumonia, unspecified organism Status: Acute Assessment and Plan: Was recently treated for PNA at outside hospital about 1.5 weeks ago Chest xray on presentation showed right lower lobe airspace disease compatible with pneumonia Completed 7 day course of Levaquin and Vancomycin on 06/21 Sputum culture negative Blood cultures negative No leukocytosis, patient afebrile Supportive care. Guaifenesin, incentive spirometry, Cornet valve (2) Cellulitis: Code(s): L03.90 - Cellulitis, unspecified Status: Suspected Assessment and Plan: Resolved. Remaining erythema is likely due to chronic venous insufficiency No signs of acute infection on exam today. Completed antibiotics as above. Supportive care (3) Acute kidney injury: Code(s): N17.9 - Acute kidney failure, unspecified Status: Acute Assessment and Plan: Creatinine on presentation was 0.9 Increase in creatinine to 1.6 Most likely secondary to diuresis and fluid restriction Torsemide and lisinopril on hold Vancomycin discontinued Fluid restriction stopped on 06/21 Renal US pending Consult to nephrology given difficulty with balancing volume status. Holding on IV fluids at this time given CHF. Recommendations appreciated. Monitor renal function closely (4) CHF (congestive heart failure): Qualifiers: Heart failure chronicity: unspecified Heart failure type: unspecified Qualified Code(s): I50.9 - Heart failure, unspecified Code(s): I50.9 - Heart failure, unspecified Status: Acute Assessment and Plan: CXR with cardiomegaly, no findings of volume overload Echo showed EF of 60-65% with grade 1 diastolic CHF Home torsemide on hold. Continue metoprolol. Hold lisinopril (5) Transaminitis: Code(s): R74.01 - Elevation of levels of liver transaminase levels Status: Acute Assessment and Plan: LFTs remaining stable. Hepatitis panel negative Trend labs (6) Hypertension: Code(s): I10 - Essential (primary) hypertension Status: Acute Assessment and Plan: Blood pressures remaining stable, slightly soft Continue home amlodipine, carvedilol. Hold lisinopril Monitor orthostatics Trend blood pressure (7) Diabetes 1.5, managed as type 2: Code(s): E13.9 - Other specified diabetes mellitus without complications Status: Acute Assessment and Plan: A1c is 6.7 Continue Accu-Cheks, sliding scale insulin, and hypoglycemic protocol Home glipizide on hold (8) Hyponatremia: Code(s): E87.1 - Hypo-osmolality and hyponatremia Status: Acute Assessment and Plan: Sodium 128 today after stopping fluid restriction Continue to monitor sodium levels. Subjective Date/time seen: 06/22/22 12:15 Interval history: Date of service: 06/22/2022 Chloe Fontaine is a 87-year-old female with a history of CHF, hypertension, diabetes mellitus, pacemaker placement who is seen in follow-up for pneumonia and lower extremity edema. States she is feeling better today. She does complain of some bilateral lower extremity neuropathy but states this is improved. She is no longer coughing. She was able to tolerate her breakfast. She had her Cary catheter removed and has been able to void without difficulty. She denies any urinary symptoms. Review of Systems Review of Systems: All systems reviewed & are unremarkable except as noted in HPI and below Exam Narrative: General: Well-nourished, well-appearing 87-year-old female, sitting up in bed, comfortable, NARD Neuro: awake, alert and oriented x4, speech clear, no focal neuro deficits noted HEENMT: normocephalic, atraumatic, EOMI, sclerae anicteric Respiratory: clear to auscultation bilaterally
[2022-06-22 12:20] LABS: Glucose Point of Care 170 mg/dl (65-105)
[2022-06-22 15:08] LABS: Sodium 131 mmol/L (137-145)
--- NOTE | 2022-06-22 15:25 | PM.CNNEP ---
Assessment and Plan Assessment and plan (1) Acute kidney injury: Code(s): N17.9 - Acute kidney failure, unspecified Status: Acute Assessment and Plan: the patient had normal kidney function on admission. Her creatinine has risen over the last few days. Her urinalysis shows a specific gravity 1.020. Renal ultrasound is normal. UA shows protein. I suspect that the higher creatinine is due to diuretics. I agree with holding the diuretics as has already been done. Other causes include interstitial nephritis as she has been on antibiotics. Glomerulonephritis is possible but less likely in this clinical scenario. Obstruction was ruled out by ultrasound. Rhabdomyolysis is possible and will get a CK. At this point I agree with holding diuretics and watching things for now. We could give her some fluid, but her blood pressure is doing pretty well and the creatinine isn't all that high so we can try just holding diuretics for now. (2) Hyponatremia: Code(s): E87.1 - Hypo-osmolality and hyponatremia Status: Acute Assessment and Plan: the patient has hyponatremia. It is unclear whether this is a chronic or not. It was present on admission when she was volume overload so I do not think it is the diuretics alone. She did have pneumonia and had had pneumonia for a few weeks before that so this could be 1 cause. She was on torsemide before coming which is much more salt him a cause of hyponatremia especially since she was not dehydrated on admission. Hypothyroidism and adrenal insufficiency can do this. We can check these tests. Cancer can do this. Since she had pneumonia 3 weeks ago and a persistent pneumonia now then consider CT of the chest to look for a cancer causing persistent infiltrate. At this point I think we can watch things since the diuretics have been held. Hopefully sodium will correct itself. If not we can do other things so depending on what the above tests show. (3) CHF (congestive heart failure): Qualifiers: Heart failure chronicity: unspecified Heart failure type: unspecified Qualified Code(s): I50.9 - Heart failure, unspecified Code(s): I50.9 - Heart failure, unspecified Status: Acute Assessment and Plan: Echo shows diastolic dysfunction plus pulmonary hypertension. (4) Pneumonia: Qualifiers: Pneumonia type: due to unspecified organism Code(s): J18.9 - Pneumonia, unspecified organism Status: Acute Assessment and Plan: She is on antibiotics (5) Hypertension: Code(s): I10 - Essential (primary) hypertension Status: Acute Assessment and Plan: blood pressure is under good control (6) Lower extremity edema: Code(s): R60.0 - Localized edema Status: Acute Assessment and Plan: swelling is new recently. She is on amlodipine and she does have pulmonary hypertension both of which can contribute to swelling but are not acute issues. Possibly the pneumonia has tipped her over to cause the swelling recently. At this point will try to get rid of the amlodipine and continue to treat the pneumonia and see if things get better. She also has 3+ protein in the urine but the urine is concentrated. Will see if she has much protein in the urine which can also cause swelling. (7) Diabetes 1.5, managed as type 2: Code(s): E13.9 - Other specified diabetes mellitus without complications Status: Acute Assessment and Plan: Management per hospitalists. History of Present Illness Reason for Consult Consult date: 06/22/22 Chief Complaint Chief complaint: CHF/Edema/Pneumonia History of Present Illness Narrative: Chloe is a very pleasant 87-year-old lady who has multiple medical problems including diabetes, hypertension, pulmonary hypertension, history of pancreatitis pneumonia and rheumatic fever, left leg DVT, congestive heart failure, gout, atrial
[2022-06-22 17:01] LABS: Glucose Point of Care 190 mg/dl (65-105)
[2022-06-22 17:42] LABS: Creatine Kinase 195 U/L (30-135)
[2022-06-22 21:47] LABS: Urea Random Urine 547 MG/DL
[2022-06-22 21:49] LABS: Creatinine Urine 55.2 mg/dL
[2022-06-22 22:04] LABS: Sodium Urine Random 13 meq/L
[2022-06-23 06:00] VITALS: BP 138/54; PULSE 60; RESP 16; TEMP 37.1; O2SAT 93
[2022-06-23 06:44] LABS: Total Protein Urine Random > 600 mg/dL
[2022-06-23 07:05] LABS: Albumin Level 2.6 g/dL (3.5-5.1); Anion Gap 4 mmol/L (8-16); Blood Urea Nitrogen 50 mg/dL (7-17); Calcium 8.2 mg/dL (8.4-10.2); Carbon Dioxide 27 mmol/L (22-30); Chloride 99 mmol/L (98-107); Estimated CRCL calculation 24 ml/min; Estimated Glomerular Filt Rate 28; Glucose 148 mg/dL (65-110); Phosphorus 4.3 mg/dL (2.5-4.5); Potassium 4.6 mmol/L (3.4-5.0); Sodium 130 mmol/L (137-145)
[2022-06-23 07:40] LABS: Glucose Point of Care 135 mg/dl (65-105)
[2022-06-23] MEDS: COSYNTROPIN 0.25 MG/ML VIAL IV PUSH (08:33)
[2022-06-23] MEDS: ENOXAPARIN 40 MG/0.4 ML SYRINGE SUB-Q (08:34)
[2022-06-23 08:35] VITALS: PULSE 60
[2022-06-23] MEDS: DOCUSATE SODIUM 100 MG CAPSULE PO ×2 (08:35→20:30)
[2022-06-23] MEDS: ATORVASTATIN 40 MG TABLET PO (08:35)
[2022-06-23] MEDS: polyethylene glycoL 3350 17 GM POWD.PACK PO (08:35)
[2022-06-23] MEDS: GABAPENTIN 100 MG CAPSULE 200 MG PO ×3 (08:35→16:36)
[2022-06-23] MEDS: amLODIPine BESYLATE 5 MG TABLET 10 MG PO (08:35)
[2022-06-23] MEDS: carvediloL 6.25 MG TABLET PO ×2 (08:35→16:36)
[2022-06-23] MEDS: allopurinoL 300 MG TABLET PO (08:35)
[2022-06-23] MEDS: guaiFENesin 12 HR 600 MG TABCR PO ×2 (08:35→20:31)
--- NOTE | 2022-06-23 08:49 | PM.PNNEP ---
Progress Note: A&P Assessment and Plan (1) Acute kidney injury: Code(s): N17.9 - Acute kidney failure, unspecified Status: Acute Assessment and Plan: the patient had normal kidney function on admission. Her creatinine has risen over the last few days. Her urinalysis shows a specific gravity 1.020. Renal ultrasound is normal. UA shows protein. Urine protein is over 10 g per gram of creatinine. CK is not significantly high. I suspect that the higher creatinine is due to diuretics. She is pre renal because of her severe nephrotic syndrome. (2) Hyponatremia: Code(s): E87.1 - Hypo-osmolality and hyponatremia Status: Acute Assessment and Plan: the patient has hyponatremia. TSH is normal. Cortisol is 10. Will check a Cortrosyn stim test. The patient has pre renal factors. This is at least partially cause by the nephrotic syndrome. Diuretics can contribute to hyponatremia as well. It is unclear whether this is a chronic or not. It was present on admission when she was volume overload so I do not think it is the diuretics alone. She has pneumonia which can contribute as well. Will continue fluid restriction. She is going to get diuretics and so will add salt tablets to keep the sodium from falling. (3) CHF (congestive heart failure): Qualifiers: Heart failure chronicity: unspecified Heart failure type: unspecified Qualified Code(s): I50.9 - Heart failure, unspecified Code(s): I50.9 - Heart failure, unspecified Status: Acute Assessment and Plan: Echo shows diastolic dysfunction plus pulmonary hypertension. (4) Pneumonia: Qualifiers: Pneumonia type: due to unspecified organism Code(s): J18.9 - Pneumonia, unspecified organism Status: Acute Assessment and Plan: She is on antibiotics (5) Hypertension: Code(s): I10 - Essential (primary) hypertension Status: Acute Assessment and Plan: blood pressure is under good control (6) Lower extremity edema: Code(s): R60.0 - Localized edema Status: Acute Assessment and Plan: swelling is new recently. This is multifactorial. She has severe nephrotic syndrome. This is probably from her diabetes. Her urine sediment is bland. Will check serology an immunofixation as well. She is on amlodipine. Try to get rid of this. She has pulmonary hypertension. At this point will give Lasix plus albumin to try to help this swelling. the albumin may help the pre renal factors to help the sodium as well. (7) Diabetes 1.5, managed as type 2: Code(s): E13.9 - Other specified diabetes mellitus without complications Status: Acute Assessment and Plan: Management per hospitalists. Subjective Date/time seen: 06/23/22 08:49 Interval history: 06/23 Surely is feeling about the same today. No chest pain or shortness of breath. She is still very swollen. Review of Systems Cardiovascular: Cardiovascular: Reports no additional cardiovascular complaints Respiratory: Respiratory: Reports no additional respiratory complaints Gastrointestinal: Gastrointestinal: Reports no additional gastrointestinal complaints Genitourinary: Genitourinary: Reports no additional female genitourinary complaints Exam Narrative: WDWN in NAD skin no rash head ncat lungs clear cor reg no rub abd BS+ nontender and soft ext Two to 3+ bilateral edema. some chronic venous stasis changes. Objective Data Vital Signs Vital Signs: Vital Signs - 24 hr 06/22/22 09:24 06/22/22 12:28 06/22/22 14:00 Temperature 36.3 C L 36.4 C Pulse Rate 78 68 58 L Respiratory Rate 20 24 H Blood Pressure 116/57 L 121/45 L Pulse Oximetry 94 94 06/22/22 14:25 06/22/22 14:26 06/22/22 16:58 Temperature 36.3 C L 36.3 C L Pulse Rate 69 68 80 Respiratory Rate 22 H 22 H Blood Pressure 120/54 L
[2022-06-23] MEDS: HYDROcodone/acetaminophen (*CRX) 5-325 MG TABLET 1 TAB PO (09:37)
[2022-06-23] MEDS: BUMETANIDE INJ 2.5 MG/10 ML VIAL 2 MG IV PUSH ×2 (10:07→16:36)
[2022-06-23 11:34] LABS: Glucose Point of Care 182 mg/dl (65-105)
[2022-06-23] MEDS: ALBUMIN HUMAN 25% 25 GM/100 ML 100 ML IVPB ×2 (12:35→18:14)
--- NOTE | 2022-06-23 13:23 | P.PNIM_ITS ---
Progress Note: A&P Assessment and Plan (1) Pneumonia: Qualifiers: Pneumonia type: due to unspecified organism Code(s): J18.9 - Pneumonia, unspecified organism Status: Acute Assessment and Plan: Was recently treated for PNA at outside hospital about 1.5 weeks ago * Chest xray on presentation showed right lower lobe airspace disease compatible with pneumonia * Completed 7 day course of Levaquin and Vancomycin on 06/21 * Sputum culture negative * Blood cultures negative * No leukocytosis, patient afebrile * Supportive care. Guaifenesin, incentive spirometry, Cornet valve (2) Cellulitis: Code(s): L03.90 - Cellulitis, unspecified Status: Suspected Assessment and Plan: Resolved. * Persistent erythema is likely due to chronic venous insufficiency * No signs of acute infection on exam * Completed antibiotics as above. * Supportive care (3) Acute kidney injury: Code(s): N17.9 - Acute kidney failure, unspecified Status: Acute Assessment and Plan: Creatinine on presentation was 0.9 * Increase in creatinine to 1.7 today * Most likely secondary to diuresis * Noted to have nephrotic syndrome * Torsemide and lisinopril on hold * Vancomycin discontinued * Renal US showed normal kidneys without hydronephrosis * Appreciate nephrology consultation and recommendations * Started on Lasix plus albumin today per Nephrology recommendations * Monitor renal function (4) CHF (congestive heart failure): Qualifiers: Heart failure chronicity: unspecified Heart failure type: unspecified Qualified Code(s): I50.9 - Heart failure, unspecified Code(s): I50.9 - Heart failure, unspecified Status: Acute Assessment and Plan: CXR with cardiomegaly, no findings of pulmonary edema * Echo showed EF of 60-65% with grade 1 diastolic CHF * Home torsemide on hold. * Continue metoprolol. Hold lisinopril (5) Transaminitis: Code(s): R74.01 - Elevation of levels of liver transaminase levels Status: Acute Assessment and Plan: LFTs remaining stable. * Hepatitis panel negative * Trend labs (6) Hypertension: Code(s): I10 - Essential (primary) hypertension Status: Acute Assessment and Plan: Blood pressures remaining stable * Continue home carvedilol. Hold lisinopril * Will discontinue amlodipine given lower extremity edema * Monitor orthostatics * Trend blood pressure (7) Diabetes 1.5, managed as type 2: Code(s): E13.9 - Other specified diabetes mellitus without complications Status: Acute Assessment and Plan: A1c is 6.7 * Continue Accu-Cheks, sliding scale insulin, and hypoglycemic protocol * Home glipizide on hold (8) Hyponatremia: Code(s): E87.1 - Hypo-osmolality and hyponatremia Status: Acute Assessment and Plan: Sodium slightly improved to 130 today * Continue Lasix and albumin per Nephrology * Monitor BMP Subjective Date/time seen: 06/23/22 13:23 Interval history: Date of service: 06/22/2022 Chloe Fontaine is a 87-year-old female with a history of CHF, hypertension, diabetes mellitus, pacemaker placement who is seen in follow-up for pneumonia and lower extremity edema. She is feeling okay today. Complains of feeling fatigued. Denies any leg pain but notes persistent swelling in her legs and her arms. She denies shortness of breath. She has occasional dry cough. No nausea or vomiting.
--- NOTE | 2022-06-23 13:23 | PM.IMPN ---
Progress Note: A&P Assessment and Plan (1) Pneumonia: Qualifiers: Pneumonia type: due to unspecified organism Code(s): J18.9 - Pneumonia, unspecified organism Status: Acute Assessment and Plan: Was recently treated for PNA at outside hospital about 1.5 weeks ago Chest xray on presentation showed right lower lobe airspace disease compatible with pneumonia Completed 7 day course of Levaquin and Vancomycin on 06/21 Sputum culture negative Blood cultures negative No leukocytosis, patient afebrile Supportive care. Guaifenesin, incentive spirometry, Cornet valve (2) Cellulitis: Code(s): L03.90 - Cellulitis, unspecified Status: Suspected Assessment and Plan: Resolved. Persistent erythema is likely due to chronic venous insufficiency No signs of acute infection on exam Completed antibiotics as above. Supportive care (3) Acute kidney injury: Code(s): N17.9 - Acute kidney failure, unspecified Status: Acute Assessment and Plan: Creatinine on presentation was 0.9 Increase in creatinine to 1.7 today Most likely secondary to diuresis Noted to have nephrotic syndrome Torsemide and lisinopril on hold Vancomycin discontinued Renal US showed normal kidneys without hydronephrosis Appreciate nephrology consultation and recommendations Started on Lasix plus albumin today per Nephrology recommendations Monitor renal function (4) CHF (congestive heart failure): Qualifiers: Heart failure chronicity: unspecified Heart failure type: unspecified Qualified Code(s): I50.9 - Heart failure, unspecified Code(s): I50.9 - Heart failure, unspecified Status: Acute Assessment and Plan: CXR with cardiomegaly, no findings of pulmonary edema Echo showed EF of 60-65% with grade 1 diastolic CHF Home torsemide on hold. Continue metoprolol. Hold lisinopril (5) Transaminitis: Code(s): R74.01 - Elevation of levels of liver transaminase levels Status: Acute Assessment and Plan: LFTs remaining stable. Hepatitis panel negative Trend labs (6) Hypertension: Code(s): I10 - Essential (primary) hypertension Status: Acute Assessment and Plan: Blood pressures remaining stable Continue home carvedilol. Hold lisinopril Will discontinue amlodipine given lower extremity edema Monitor orthostatics Trend blood pressure (7) Diabetes 1.5, managed as type 2: Code(s): E13.9 - Other specified diabetes mellitus without complications Status: Acute Assessment and Plan: A1c is 6.7 Continue Accu-Cheks, sliding scale insulin, and hypoglycemic protocol Home glipizide on hold (8) Hyponatremia: Code(s): E87.1 - Hypo-osmolality and hyponatremia Status: Acute Assessment and Plan: Sodium slightly improved to 130 today Continue Lasix and albumin per Nephrology Monitor BMP Subjective Date/time seen: 06/23/22 13:23 Interval history: Date of service: 06/22/2022 Chloe Fontaine is a 87-year-old female with a history of CHF, hypertension, diabetes mellitus, pacemaker placement who is seen in follow-up for pneumonia and lower extremity edema. She is feeling okay today. Complains of feeling fatigued. Denies any leg pain but notes persistent swelling in her legs and her arms. She denies shortness of breath. She has occasional dry cough. No nausea or vomiting. Tolerating her diet. Review of Systems Review of Systems: All systems reviewed & are unremarkable except as noted in HPI and below Exam Narrative: General: Well-nourished, well-appearing 87-year-old female, sitting up in bed, comfortable, NARD Neuro: awake, alert and oriented x4, speech clear, no focal neuro deficits noted HEENMT: normocephalic, atraumatic, EOMI, sclerae anicteric Respiratory: clear to auscultation bilaterally, nonlabored breathing Cardio: regular rat
[2022-06-23 14:00] VITALS: BP 134/61; PULSE 63; RESP 16; TEMP 36.2; O2SAT 96
[2022-06-23 16:18] LABS: Glucose Point of Care 233 mg/dl (65-105)
[2022-06-23 16:36] VITALS: PULSE 66
[2022-06-23] MEDS: INSULIN ASPART (*BKC) 100 UNITS/ML SUB-Q (16:37)
[2022-06-23 21:41] LABS: Glucose Point of Care 201 mg/dl (65-105)
[2022-06-23 22:00] VITALS: BP 154/59; PULSE 66; RESP 16; TEMP 36.1; O2SAT 96
[2022-06-24] MEDS: ALBUMIN HUMAN 25% 25 GM/100 ML 100 ML IVPB ×5 (00:54→23:44)
[2022-06-24 05:49] VITALS: BP 131/50; PULSE 60; RESP 18; TEMP 35.8; O2SAT 94
[2022-06-24 06:41] LABS: Hematocrit 34.4 % (37.0-47.0); Hemoglobin 10.5 g/dL (12.0-15.0); Mean Corpuscular HGB Conc 30.5 g/dl (32-36); Mean Corpuscular Hemoglobin 27.1 pg (26-34); Mean Corpuscular Volume 88.7 fl (80-100); Mean Platelet Volume 11.2 fl (7.4-10.4); Platelet Count Result 161 k/mm3 (150-375); Red Blood Count 3.88 M/mm3 (4.2-5.4); White Blood Count 5.5 K/mm3 (4.5-10.0)
[2022-06-24 07:04] LABS: Alanine Aminotransferase 55 U/L (6-35); Albumin Level 2.6 g/dL (3.5-5.1); Alkaline Phosphatase 94 U/L (38-126); Anion Gap 4 mmol/L (8-16); Aspartate Amino Transferase 71 U/L (14-36); Bilirubin,Total 0.3 mg/dL (0.2-1.3); Blood Urea Nitrogen 46 mg/dL (7-17); Calcium 8.4 mg/dL (8.4-10.2); Carbon Dioxide 28 mmol/L (22-30); Chloride 101 mmol/L (98-107); Estimated CRCL calculation 26 ml/min; Estimated Glomerular Filt Rate 33; Glucose 125 mg/dL (65-110); Potassium 4.2 mmol/L (3.4-5.0); Sodium 133 mmol/L (137-145)
[2022-06-24 07:53] LABS: Complement C3 119 mg/dL (88-165)
[2022-06-24 08:17] LABS: CRP 2.2 mg/dL (<1.0)
[2022-06-24] MEDS: BUMETANIDE INJ 2.5 MG/10 ML VIAL 2 MG IV PUSH ×2 (08:17→17:19)
[2022-06-24] MEDS: GABAPENTIN 100 MG CAPSULE 200 MG PO ×3 (08:17→17:19)
[2022-06-24] MEDS: ENOXAPARIN 40 MG/0.4 ML SYRINGE SUB-Q (08:17)
[2022-06-24] MEDS: DOCUSATE SODIUM 100 MG CAPSULE PO ×2 (08:17→21:35)
[2022-06-24 08:18] VITALS: PULSE 62
[2022-06-24] MEDS: carvediloL 6.25 MG TABLET PO ×2 (08:18→17:21)
[2022-06-24] MEDS: allopurinoL 300 MG TABLET PO (08:19)
[2022-06-24] MEDS: ATORVASTATIN 40 MG TABLET PO (08:19)
[2022-06-24] MEDS: guaiFENesin 12 HR 600 MG TABCR PO ×2 (08:19→21:35)
[2022-06-24] MEDS: polyethylene glycoL 3350 17 GM POWD.PACK PO (08:19)
[2022-06-24] MEDS: HYDROcodone/acetaminophen (*CRX) 5-325 MG TABLET 1 TAB PO (08:22)
[2022-06-24 08:27] LABS: Glucose Point of Care 125 mg/dl (65-105)
--- NOTE | 2022-06-24 11:45 | P.PNIM_ITS ---
Progress Note: A&P Assessment and Plan (1) Pneumonia: Qualifiers: Pneumonia type: due to unspecified organism Code(s): J18.9 - Pneumonia, unspecified organism Status: Acute Assessment and Plan: Was recently treated for PNA at outside hospital about 1.5 weeks ago * Chest xray on presentation showed right lower lobe airspace disease compatible with pneumonia * Completed 7 day course of Levaquin and Vancomycin on 06/21 * Sputum culture negative * Blood cultures negative * No leukocytosis, patient afebrile * Supportive care. Guaifenesin, incentive spirometry, Cornet valve (2) Cellulitis: Code(s): L03.90 - Cellulitis, unspecified Status: Suspected Assessment and Plan: Resolved. * Persistent erythema is likely due to chronic venous insufficiency * No signs of acute infection on exam * Completed antibiotics as above. * Supportive care (3) Acute kidney injury: Code(s): N17.9 - Acute kidney failure, unspecified Status: Acute Assessment and Plan: Creatinine on presentation was 0.9 * Increase in creatinine to 1.5 today * Most likely secondary to diuresis * Noted to have nephrotic syndrome * Torsemide and lisinopril on hold * Vancomycin discontinued * Renal US showed normal kidneys without hydronephrosis * Appreciate nephrology consultation and recommendations * Continue Lasix plus albumin today per Nephrology recommendations * Monitor renal function (4) CHF (congestive heart failure): Qualifiers: Heart failure chronicity: unspecified Heart failure type: unspecified Qualified Code(s): I50.9 - Heart failure, unspecified Code(s): I50.9 - Heart failure, unspecified Status: Acute Assessment and Plan: CXR with cardiomegaly, no findings of pulmonary edema * Echo showed EF of 60-65% with grade 1 diastolic CHF * Home torsemide on hold. * Continue metoprolol. Hold lisinopril (5) Transaminitis: Code(s): R74.01 - Elevation of levels of liver transaminase levels Status: Acute Assessment and Plan: LFTs remaining stable. * Hepatitis panel negative * Trend labs (6) Hypertension: Code(s): I10 - Essential (primary) hypertension Status: Acute Assessment and Plan: Blood pressures remaining stable * Currently 131/50 * Continue home carvedilol. Hold lisinopril * Will discontinue amlodipine given lower extremity edema * Monitor orthostatics * Trend blood pressure (7) Diabetes 1.5, managed as type 2: Code(s): E13.9 - Other specified diabetes mellitus without complications Status: Acute Assessment and Plan: A1c is 6.7 * Continue Accu-Cheks, sliding scale insulin, and hypoglycemic protocol * Home glipizide on hold * Current glucose is 125 (8) Hyponatremia: Code(s): E87.1 - Hypo-osmolality and hyponatremia Status: Acute Assessment and Plan: Sodium slightly improved to 133 today * Continue Lasix and albumin per Nephrology * Monitor BMP Subjective Date/time seen: 06/24/22 114 Interval history: 06/24/221144 Patient was sitting in the chair. Patient stated that she is feeling a lot better. She is still concerned about her arms she says her very swollen. Her legs do appear better and the redness is very slight. She denies any chest pain, shortness a breath, nausea, vomiting, diarrhea, constipation, weakness or fatigue she was able to walk to the bathroom ilan rader
--- NOTE | 2022-06-24 11:45 | PM.IMPN ---
Progress Note: A&P Assessment and Plan (1) Pneumonia: Qualifiers: Pneumonia type: due to unspecified organism Code(s): J18.9 - Pneumonia, unspecified organism Status: Acute Assessment and Plan: Was recently treated for PNA at outside hospital about 1.5 weeks ago Chest xray on presentation showed right lower lobe airspace disease compatible with pneumonia Completed 7 day course of Levaquin and Vancomycin on 06/21 Sputum culture negative Blood cultures negative No leukocytosis, patient afebrile Supportive care. Guaifenesin, incentive spirometry, Cornet valve (2) Cellulitis: Code(s): L03.90 - Cellulitis, unspecified Status: Suspected Assessment and Plan: Resolved. Persistent erythema is likely due to chronic venous insufficiency No signs of acute infection on exam Completed antibiotics as above. Supportive care (3) Acute kidney injury: Code(s): N17.9 - Acute kidney failure, unspecified Status: Acute Assessment and Plan: Creatinine on presentation was 0.9 Increase in creatinine to 1.5 today Most likely secondary to diuresis Noted to have nephrotic syndrome Torsemide and lisinopril on hold Vancomycin discontinued Renal US showed normal kidneys without hydronephrosis Appreciate nephrology consultation and recommendations Continue Lasix plus albumin today per Nephrology recommendations Monitor renal function (4) CHF (congestive heart failure): Qualifiers: Heart failure chronicity: unspecified Heart failure type: unspecified Qualified Code(s): I50.9 - Heart failure, unspecified Code(s): I50.9 - Heart failure, unspecified Status: Acute Assessment and Plan: CXR with cardiomegaly, no findings of pulmonary edema Echo showed EF of 60-65% with grade 1 diastolic CHF Home torsemide on hold. Continue metoprolol. Hold lisinopril (5) Transaminitis: Code(s): R74.01 - Elevation of levels of liver transaminase levels Status: Acute Assessment and Plan: LFTs remaining stable. Hepatitis panel negative Trend labs (6) Hypertension: Code(s): I10 - Essential (primary) hypertension Status: Acute Assessment and Plan: Blood pressures remaining stable Currently 131/50 Continue home carvedilol. Hold lisinopril Will discontinue amlodipine given lower extremity edema Monitor orthostatics Trend blood pressure (7) Diabetes 1.5, managed as type 2: Code(s): E13.9 - Other specified diabetes mellitus without complications Status: Acute Assessment and Plan: A1c is 6.7 Continue Accu-Cheks, sliding scale insulin, and hypoglycemic protocol Home glipizide on hold Current glucose is 125 (8) Hyponatremia: Code(s): E87.1 - Hypo-osmolality and hyponatremia Status: Acute Assessment and Plan: Sodium slightly improved to 133 today Continue Lasix and albumin per Nephrology Monitor BMP Subjective Date/time seen: 06/24/221144 Interval history: 06/24/221144 Patient was sitting in the chair. Patient stated that she is feeling a lot better. She is still concerned about her arms she says her very swollen. Her legs do appear better and the redness is very slight. She denies any chest pain, shortness a breath, nausea, vomiting, diarrhea, constipation, weakness or fatigue she was able to walk to the bathroom this morning. She does state that she is doing better her son was in the room and questions were answered. 06/23/221144 Chloe Fontaine is a 87-year-old female with a history of CHF, hypertension, diabetes mellitus, pacemaker placement who is seen in follow-up for pneumonia and lower extremity edema. She is feeling okay today. Complains of feeling fatigued. Denies any leg pain but notes persistent swelling in her legs and her arms. She denies shortness of breath. She has occasional dry cough. No na
[2022-06-24 12:01] LABS: Glucose Point of Care 131 mg/dl (65-105)
--- NOTE | 2022-06-24 13:50 | PM.PNNEP ---
Progress Note: A&P Assessment and Plan (1) Acute kidney injury: Code(s): N17.9 - Acute kidney failure, unspecified Status: Acute Assessment and Plan: the patient had normal kidney function on admission. Her creatinine has risen over the last few days. Her urinalysis shows a specific gravity 1.020. Renal ultrasound is normal. UA shows protein. Urine protein is over 10 g per gram of creatinine. CK is not significantly high. I suspect that the higher creatinine is due to diuretics. She is pre renal because of her severe nephrotic syndrome. she is getting Bumex plus albumin now. She had a very good response to the Bumex. Creatinine is stable. Sodium is stable. Will continue diuretics. (2) Hyponatremia: Code(s): E87.1 - Hypo-osmolality and hyponatremia Status: Acute Assessment and Plan: the patient has hyponatremia. TSH is normal. Cortisol is 10. Will check a Cortrosyn stim test. The patient has pre renal factors. This is at least partially cause by the nephrotic syndrome. Diuretics can contribute to hyponatremia as well. It is unclear whether this is a chronic or not. It was present on admission when she was volume overload so I do not think it is the diuretics alone. She has pneumonia which can contribute as well. Will continue fluid restriction. She is on bumetanide plus albumin. Sodium is actually better so will hold off on the salt tablets. (3) CHF (congestive heart failure): Qualifiers: Heart failure chronicity: unspecified Heart failure type: unspecified Qualified Code(s): I50.9 - Heart failure, unspecified Code(s): I50.9 - Heart failure, unspecified Status: Acute Assessment and Plan: Echo shows diastolic dysfunction plus pulmonary hypertension. (4) Pneumonia: Qualifiers: Pneumonia type: due to unspecified organism Code(s): J18.9 - Pneumonia, unspecified organism Status: Acute Assessment and Plan: She is on antibiotics (5) Hypertension: Code(s): I10 - Essential (primary) hypertension Status: Acute Assessment and Plan: blood pressure is running 130 to 154. Will see how it does with the diuresis. Improve on its own. (6) Lower extremity edema: Code(s): R60.0 - Localized edema Status: Acute Assessment and Plan: swelling is new recently. This is multifactorial. She has severe nephrotic syndrome. This is probably from her diabetes. Her urine sediment is bland. Will check serology an immunofixation as well. Off the amlodipine. She has pulmonary hypertension. At this point will give Lasix plus albumin to try to help this swelling. the albumin may help the pre renal factors to help the sodium as well. (7) Diabetes 1.5, managed as type 2: Code(s): E13.9 - Other specified diabetes mellitus without complications Status: Acute Assessment and Plan: Management per hospitalists. Subjective Date/time seen: 06/24/22 13:50 Interval history: 06/23 Surely is feeling about the same today. No chest pain or shortness of breath. She is still very swollen. 06/24 Patient is feeling better. She urinated a lot last night. I see wrinkles in my hands Exam Narrative: WDWN in NAD skin no rash head ncat lungs clear cor reg no rub abd BS+ nontender and soft ext Two to 3+ bilateral edema. some chronic venous stasis changes. Objective Data Vital Signs Vital Signs: Vital Signs - 24 hr 06/23/22 14:00 06/23/22 16:36 06/23/22 22:00 Temperature 97.1 F L 96.9 F L Pulse Rate 63 66 66 Respiratory Rate 16 16 Blood Pressure 134/61 154/59 H Pulse Oximetry 96 96 Oxygen Delivery 06/23/22 20:00 06/24/22 05:49 06/24/22 08:18 Temperature 96.5 F L Pulse Rate 60 62 Respiratory Rate 18 Blood Pressure 131/50 L Pulse Oximetry 94 Oxygen Delivery Room
[2022-06-24 14:00] VITALS: BP 125/60; PULSE 61; RESP 18; TEMP 36.6; O2SAT 97
[2022-06-24 17:21] VITALS: PULSE 64
[2022-06-24 17:28] LABS: Glucose Point of Care 150 mg/dl (65-105)
[2022-06-24 22:00] VITALS: BP 152/51; PULSE 61; RESP 14; TEMP 36.5; O2SAT 95
[2022-06-24 22:42] LABS: Glucose Point of Care 217 mg/dl (65-105)
[2022-06-25] VITALS (7 sets, daily range): BP systolic 141–160; BP diastolic 46–66; PULSE 60–78; RESP 16–22; TEMP 36.2–36.9; O2SAT 92–100
[2022-06-25] MEDS: ALBUMIN HUMAN 25% 25 GM/100 ML 100 ML IVPB ×2 (06:10→12:21)
[2022-06-25 06:48] LABS: Basophils Percent Auto 0.6 % (0.2-1.2); Eosinophils Absolute Auto 0.2 K/mm3 (0-0.3); Hematocrit 34.4 % (37.0-47.0); Immature Granulocyte Absolute 0.05 K/mm3 (0.00-0.031); Immature Granulocyte Percent A 0.7 % (0-0.5); Lymphocytes Percent Auto 19.4 % (18.3-44.2); Mean Corpuscular Hemoglobin 26.1 pg (26-34); Mean Corpuscular Volume 81.7 fl (80-100); Mean Platelet Volume 11.6 fl (7.4-10.4); Monocytes Absolute Auto 0.7 K/mm3 (0.1-0.6); Monocytes Percent Auto 10.5 % (2.6-8.5); Neutrophils Absolute Auto 4.4 K/mm3 (1.3-6.7); Neutrophils Percent Auto 65.8 % (45.5-73.1); Platelet Count Result 189 k/mm3 (150-375); Red Blood Count 4.21 M/mm3 (4.2-5.4); Red Cell Distribution Width 15.9 % (11.5-14.5); White Blood Count 6.7 K/mm3 (4.5-10.0)
[2022-06-25 07:01] LABS: Alanine Aminotransferase 49 U/L (6-35); Albumin Level 3.8 g/dL (3.5-5.1); Alkaline Phosphatase 94 U/L (38-126); Anion Gap 4 mmol/L (8-16); Aspartate Amino Transferase 65 U/L (14-36); Bilirubin,Total 0.4 mg/dL (0.2-1.3); Blood Urea Nitrogen 40 mg/dL (7-17); Calcium 9.1 mg/dL (8.4-10.2); Carbon Dioxide 27 mmol/L (22-30); Chloride 100 mmol/L (98-107); Estimated CRCL calculation 33 ml/min; Estimated Glomerular Filt Rate 43; Glucose 157 mg/dL (65-110); Magnesium 2.4 mg/dL (1.6-2.3); Potassium 4.5 mmol/L (3.4-5.0); Sodium 131 mmol/L (137-145)
[2022-06-25 07:53] LABS: Glucose Point of Care 150 mg/dl (65-105)
[2022-06-25] MEDS: allopurinoL 300 MG TABLET PO (08:04)
[2022-06-25] MEDS: GABAPENTIN 100 MG CAPSULE 200 MG PO ×3 (08:04→16:27)
[2022-06-25] MEDS: carvediloL 6.25 MG TABLET PO ×2 (08:04→16:27)
[2022-06-25] MEDS: ATORVASTATIN 40 MG TABLET PO (08:04)
[2022-06-25] MEDS: guaiFENesin 12 HR 600 MG TABCR PO ×2 (08:04→20:45)
[2022-06-25] MEDS: DOCUSATE SODIUM 100 MG CAPSULE PO ×2 (08:05→20:45)
[2022-06-25] MEDS: polyethylene glycoL 3350 17 GM POWD.PACK PO (08:05)
[2022-06-25] MEDS: BUMETANIDE INJ 2.5 MG/10 ML VIAL 2 MG IV PUSH (08:05)
[2022-06-25] MEDS: ENOXAPARIN 40 MG/0.4 ML SYRINGE SUB-Q (08:05)
--- NOTE | 2022-06-25 08:23 | ECG_ITS ---
Measurements Intervals [place] Rate: 60 P: 148 [place]: 240 QRS: -26 QRSD: 140 T: 7 QT: 476 QTc: 476 Interpretive Statements ELECTRONIC ATRIAL PACEMAKER BORDERLINE LEFT AXIS DEVIATION [QRS AXIS < -20] RIGHT BUNDLE BRANCH BLOCK [120+ ms QRS DURATION, UPRIGHT V1, 40+ ms S IN I/aVL/V4/V5/V6] ABNORMAL ECG COMPARED TO ECG 06/15/2022 12:14:56 NO SIGNIFICANT CHANGES Electronically Signed On 06-25-2022 11:21:41 NEEDLE MAKER by Juvencio José M.D.
--- NOTE | 2022-06-25 09:00 | P.PNIM_ITS ---
Progress Note: A&P Assessment and Plan (1) Pneumonia: Qualifiers: Pneumonia type: due to unspecified organism Code(s): J18.9 - Pneumonia, unspecified organism Status: Acute Assessment and Plan: * Was recently treated for PNA at outside hospital about 1.5 weeks ago * Chest xray on presentation showed right lower lobe airspace disease compatible with pneumonia * Chest xray todya showed new infiltrate on the bilateral lung bases right greater than left * Restart IV levaquin * Sputum culture negative * Blood cultures negative * No leukocytosis, patient afebrile * Supportive care. Guaifenesin, incentive spirometry, Cornet valve (2) Cellulitis: Code(s): L03.90 - Cellulitis, unspecified Status: Suspected Assessment and Plan: Resolved. * Persistent erythema is likely due to chronic venous insufficiency * No signs of acute infection on exam * Completed antibiotics as above. * Supportive care (3) Acute kidney injury: Code(s): N17.9 - Acute kidney failure, unspecified Status: Acute Assessment and Plan: Creatinine on presentation was 0.9 * Creatinine continues to decrease, currently 1.20 * Noted to have nephrotic syndrome * Torsemide and lisinopril on hold * Renal US showed normal kidneys without hydronephrosis * Appreciate nephrology consultation and recommendations * Continue 2mg IV bumex BID plus albumin today per Nephrology recommendations * Monitor renal function (4) CHF (congestive heart failure): Qualifiers: Heart failure chronicity: unspecified Heart failure type: unspecified Qualified Code(s): I50.9 - Heart failure, unspecified Code(s): I50.9 - Heart failure, unspecified Status: Acute Assessment and Plan: CXR with cardiomegaly, no findings of pulmonary edema * Echo showed EF of 60-65% with grade 1 diastolic CHF * Home torsemide on hold. * Continue metoprolol. Hold lisinopril * Continue IV bumex and albumin per nephrology * Trend urine output * daily weights (5) Transaminitis: Code(s): R74.01 - Elevation of levels of liver transaminase levels Status: Acute Assessment and Plan: LFTs remaining stable. * Hepatitis panel negative * Trend labs * Current AST/ALT 65/49 (6) Hypertension: Code(s): I10 - Essential (primary) hypertension Status: Acute Assessment and Plan: Blood pressures remaining stable * Currently 160/53 * Continue home carvedilol. Hold lisinopril * Will discontinue amlodipine given lower extremity edema * Monitor orthostatics * Trend blood pressure (7) Diabetes 1.5, managed as type 2: Code(s): E13.9 - Other specified diabetes mellitus without complications Status: Acute Assessment and Plan: A1c is 6.7 * Continue Accu-Cheks, sliding scale insulin, and hypoglycemic protocol * Home glipizide on hold * Current glucose is 157 (8) Hyponatremia: Code(s): E87.1 - Hypo-osmolality and hyponatremia Status: Acute Assessment and Plan: Sodium remains stable 131 * continue IV bumex and albumin per Nephrology * Trend labs * Nephro on the case (9) Chest pain: Code(s): R07.9 - Chest pain, unspecified Status: Acute Assessment and Plan: * Complaints of a left lower flank pain * Trop mildly elevated at 0.042 * Chest xray shows new bila
--- NOTE | 2022-06-25 09:00 | PM.IMPN ---
Progress Note: A&P Assessment and Plan (1) Pneumonia: Qualifiers: Pneumonia type: due to unspecified organism Code(s): J18.9 - Pneumonia, unspecified organism Status: Acute Assessment and Plan: Was recently treated for PNA at outside hospital about 1.5 weeks ago Chest xray on presentation showed right lower lobe airspace disease compatible with pneumonia Chest xray todya showed new infiltrate on the bilateral lung bases right greater than left Restart IV levaquin Sputum culture negative Blood cultures negative No leukocytosis, patient afebrile Supportive care. Guaifenesin, incentive spirometry, Cornet valve (2) Cellulitis: Code(s): L03.90 - Cellulitis, unspecified Status: Suspected Assessment and Plan: Resolved. Persistent erythema is likely due to chronic venous insufficiency No signs of acute infection on exam Completed antibiotics as above. Supportive care (3) Acute kidney injury: Code(s): N17.9 - Acute kidney failure, unspecified Status: Acute Assessment and Plan: Creatinine on presentation was 0.9 Creatinine continues to decrease, currently 1.20 Noted to have nephrotic syndrome Torsemide and lisinopril on hold Renal US showed normal kidneys without hydronephrosis Appreciate nephrology consultation and recommendations Continue 2mg IV bumex BID plus albumin today per Nephrology recommendations Monitor renal function (4) CHF (congestive heart failure): Qualifiers: Heart failure chronicity: unspecified Heart failure type: unspecified Qualified Code(s): I50.9 - Heart failure, unspecified Code(s): I50.9 - Heart failure, unspecified Status: Acute Assessment and Plan: CXR with cardiomegaly, no findings of pulmonary edema Echo showed EF of 60-65% with grade 1 diastolic CHF Home torsemide on hold. Continue metoprolol. Hold lisinopril Continue IV bumex and albumin per nephrology Trend urine output daily weights (5) Transaminitis: Code(s): R74.01 - Elevation of levels of liver transaminase levels Status: Acute Assessment and Plan: LFTs remaining stable. Hepatitis panel negative Trend labs Current AST/ALT 65/49 (6) Hypertension: Code(s): I10 - Essential (primary) hypertension Status: Acute Assessment and Plan: Blood pressures remaining stable Currently 160/53 Continue home carvedilol. Hold lisinopril Will discontinue amlodipine given lower extremity edema Monitor orthostatics Trend blood pressure (7) Diabetes 1.5, managed as type 2: Code(s): E13.9 - Other specified diabetes mellitus without complications Status: Acute Assessment and Plan: A1c is 6.7 Continue Accu-Cheks, sliding scale insulin, and hypoglycemic protocol Home glipizide on hold Current glucose is 157 (8) Hyponatremia: Code(s): E87.1 - Hypo-osmolality and hyponatremia Status: Acute Assessment and Plan: Sodium remains stable 131 continue IV bumex and albumin per Nephrology Trend labs Nephro on the case (9) Chest pain: Code(s): R07.9 - Chest pain, unspecified Status: Acute Assessment and Plan: Complaints of a left lower flank pain Trop mildly elevated at 0.042 Chest xray shows new bilateral infiltrates Levaquin restarted No SOB or any other associated symptoms Continue to trend trops No EKG changes Echo stable Time Spent With Patient Time with patient: Greater than 35 minutes Subjective Date/time seen: 06/25/22 09:00 Interval history: 06/25/22 0900 Patient was sitting on the toilet when I went to visit her. She is stating that she is having pain on the left lower side. Patient stated that it is not reducible by touch. She denies any shortness of breath, nausea, vomiting, sweats, fevers, chills. She denies any
[2022-06-25 09:04] LABS: Troponin I 0.042 ng/mL (0.000-0.034)
[2022-06-25 11:20] LABS: Glucose Point of Care 210 mg/dl (65-105)
[2022-06-25] MEDS: INSULIN ASPART (*BKC) 100 UNITS/ML SUB-Q (12:14)
--- NOTE | 2022-06-25 12:59 | PC.NURSE ---
Pt complained of left sided chest pain @ 0815, stated she had no SOB but patient Respirations were 22 and labored. VS T-91.4 P-61 O2-92% BP-149/66 contacted James Whatley of situation and he put orders in. Pain has since subsided.
--- NOTE | 2022-06-25 16:03 | PM.PNNEP ---
Progress Note: A&P Assessment and Plan (1) Acute kidney injury: Code(s): N17.9 - Acute kidney failure, unspecified Status: Acute Assessment and Plan: the patient had normal kidney function on admission. Her creatinine has risen over the last few days. Her urinalysis shows a specific gravity 1.020. Renal ultrasound is normal. UA shows protein. Urine protein is over 10 g per gram of creatinine. CK is not significantly high. pt's ckd is from diabetes and prerenal azotemia (due to nephrosis). she is getting Bumex plus albumin now. She had a very good response to the Bumex. we can change bumex to PO and stop the albumin since her serum alb is so good. Creatinine is better. (2) Hyponatremia: Code(s): E87.1 - Hypo-osmolality and hyponatremia Status: Acute Assessment and Plan: the patient has hyponatremia. TSH is normal. Cortisol is 10. aníbal stim okay most likely due to prerenal azotemia and pneumonia. sodium levelf stable in spite of diuretics. (3) CHF (congestive heart failure): Qualifiers: Heart failure chronicity: unspecified Heart failure type: unspecified Qualified Code(s): I50.9 - Heart failure, unspecified Code(s): I50.9 - Heart failure, unspecified Status: Acute Assessment and Plan: Echo shows diastolic dysfunction plus pulmonary hypertension. (4) Pneumonia: Qualifiers: Pneumonia type: due to unspecified organism Code(s): J18.9 - Pneumonia, unspecified organism Status: Acute Assessment and Plan: She is on antibiotics (5) Hypertension: Code(s): I10 - Essential (primary) hypertension Status: Acute Assessment and Plan: blood pressure is running 130 to 160d Will see how it does with the diuresis. Improve on its own. (6) Lower extremity edema: Code(s): R60.0 - Localized edema Status: Acute Assessment and Plan: swelling is new recently. This is multifactorial. She has severe nephrotic syndrome. This is probably from her nephrosis and pulm hypertension. stop albumin and change bumex to po (7) Diabetes 1.5, managed as type 2: Code(s): E13.9 - Other specified diabetes mellitus without complications Status: Acute Assessment and Plan: Management per hospitalists. Subjective Date/time seen: 06/25/22 16:03 Interval history: 06/23 Surely is feeling about the same today. No chest pain or shortness of breath. She is still very swollen. 06/24 Patient is feeling better. She urinated a lot last night. I see wrinkles in my hands 06/25 pt is feeling okay. edema is better. no sob now she had cp earlier (per LUIS Whatley's note) Exam Narrative: WDWN in NAD skin no rash head ncat lungs clear bilaterally cor reg no rub abd BS+ nontender and soft ext Two to 3+ bilateral edema. some chronic venous stasis changes. Objective Data Vital Signs Vital Signs: Vital Signs - 24 hr 06/24/22 17:21 06/24/22 22:00 06/24/22 20:00 Temperature 97.7 F Pulse Rate 64 61 Respiratory Rate 14 Blood Pressure 152/51 H Pulse Oximetry 95 Oxygen Delivery Room Air 06/25/22 06:00 06/25/22 08:04 06/25/22 08:20 Temperature 98.5 F 97.4 F L Pulse Rate 60 72 61 Respiratory Rate 16 22 H Blood Pressure 160/53 H 149/66 H Pulse Oximetry 93 92 Oxygen Delivery 06/25/22 13:46 Temperature 98.4 F Pulse Rate 65 Respiratory Rate 18 Blood Pressure 141/46 H Pulse Oximetry 98 Oxygen Delivery Intake/Output Intake/Output: Intake & Output 06/22/22 06/23/22 06/24/22 06/25/22 23:59 23:59 23:59 23:59 Intake Total 820 2490 3152 1920 Output Total 1470 1975 4650 2500 Balance -650 601 -1498 -134 Meds/Results Medications: Active Medications Generic Name Dose Route Start Last Admin Trade Name Freq PRN Reason Stop Dose Admin Hydrocodone Bitart/Acetaminophen 1 tab 06/17/22 09:0
[2022-06-25] MEDS: HYDROcodone/acetaminophen (*CRX) 5-325 MG TABLET 1 TAB PO (16:27)
[2022-06-25 16:57] LABS: Glucose Point of Care 100 mg/dl (65-105)
[2022-06-25] MEDS: BUMETANIDE 1 MG TABLET 2 MG PO (16:59)
[2022-06-25 21:35] LABS: Glucose Point of Care 129 mg/dl (65-105)
[2022-06-26 06:16] VITALS: BP 161/55; PULSE 60; RESP 16; TEMP 36.7; O2SAT 94
[2022-06-26 06:39] LABS: Basophils Percent Auto 0.7 % (0.2-1.2); Eosinophils Absolute Auto 0.2 K/mm3 (0-0.3); Eosinophils Percent Auto 3.6 % (0-4.4); Hematocrit 35.8 % (37.0-47.0); Hemoglobin 11.3 g/dL (12.0-15.0); Immature Granulocyte Absolute 0.05 K/mm3 (0.00-0.031); Immature Granulocyte Percent A 0.8 % (0-0.5); Lymphocytes Absolute Auto 1.28 K/mm3 (0.9-3.2); Lymphocytes Percent Auto 21.1 % (18.3-44.2); Mean Corpuscular HGB Conc 31.6 g/dl (32-36); Mean Corpuscular Hemoglobin 26.9 pg (26-34); Mean Corpuscular Volume 85.2 fl (80-100); Mean Platelet Volume 10.8 fl (7.4-10.4); Monocytes Absolute Auto 0.7 K/mm3 (0.1-0.6); Monocytes Percent Auto 11.5 % (2.6-8.5); Neutrophils Absolute Auto 3.8 K/mm3 (1.3-6.7); Neutrophils Percent Auto 62.3 % (45.5-73.1); Platelet Count Result 169 k/mm3 (150-375); Red Cell Distribution Width 15.9 % (11.5-14.5); White Blood Count 6.1 K/mm3 (4.5-10.0)
[2022-06-26 06:53] LABS: Alanine Aminotransferase 43 U/L (6-35); Albumin Level 3.4 g/dL (3.5-5.1); Alkaline Phosphatase 94 U/L (38-126); Anion Gap 4 mmol/L (8-16); Aspartate Amino Transferase 44 U/L (14-36); Bilirubin,Total 0.5 mg/dL (0.2-1.3); Blood Urea Nitrogen 37 mg/dL (7-17); Calcium 9.2 mg/dL (8.4-10.2); Carbon Dioxide 30 mmol/L (22-30); Chloride 104 mmol/L (98-107); Estimated CRCL calculation 30 ml/min; Estimated Glomerular Filt Rate 39; Glucose 113 mg/dL (65-110); Magnesium 2.2 mg/dL (1.6-2.3); Potassium 4.1 mmol/L (3.4-5.0); Sodium 138 mmol/L (137-145)
[2022-06-26 07:59] LABS: Glucose Point of Care 112 mg/dl (65-105)
--- NOTE | 2022-06-26 08:45 | PM.IMPN ---
Progress Note: A&P Assessment and Plan (1) Pneumonia: Qualifiers: Pneumonia type: due to unspecified organism Code(s): J18.9 - Pneumonia, unspecified organism Status: Acute Assessment and Plan: Was recently treated for PNA at outside hospital about 1.5 weeks ago Chest xray on presentation showed right lower lobe airspace disease compatible with pneumonia Chest xray 06/25/22 showed new infiltrate on the bilateral lung bases right greater than left Continue IV levaquin Sputum culture negative Blood cultures negative No leukocytosis, patient afebrile Supportive care. Guaifenesin, incentive spirometry, Cornet valve (2) Cellulitis: Code(s): L03.90 - Cellulitis, unspecified Status: Suspected Assessment and Plan: Resolved. Persistent erythema is likely due to chronic venous insufficiency No signs of acute infection on exam Completed antibiotics as above. Supportive care (3) Acute kidney injury: Code(s): N17.9 - Acute kidney failure, unspecified Status: Acute Assessment and Plan: Creatinine on presentation was 0.9 Creatinine continues to decrease, currently 1.30 Noted to have nephrotic syndrome Torsemide and lisinopril on hold Renal US showed normal kidneys without hydronephrosis Appreciate nephrology consultation and recommendations Continue 2mg IV bumex BID, converted to PO Monitor renal function (4) CHF (congestive heart failure): Qualifiers: Heart failure chronicity: unspecified Heart failure type: unspecified Qualified Code(s): I50.9 - Heart failure, unspecified Code(s): I50.9 - Heart failure, unspecified Status: Acute Assessment and Plan: CXR with cardiomegaly, no findings of pulmonary edema Echo showed EF of 60-65% with grade 1 diastolic CHF Home torsemide on hold. Continue metoprolol. Hold lisinopril Change bumex to 2mg PO BID Trend urine output daily weights (5) Transaminitis: Code(s): R74.01 - Elevation of levels of liver transaminase levels Status: Acute Assessment and Plan: LFTs remaining stable. Hepatitis panel negative Trend labs Current AST/ALT 44/43 (6) Hypertension: Code(s): I10 - Essential (primary) hypertension Status: Acute Assessment and Plan: Blood pressures remaining stable Currently 161/55 Continue home carvedilol. Hold lisinopril Will discontinue amlodipine given lower extremity edema Monitor orthostatics Trend blood pressure (7) Diabetes 1.5, managed as type 2: Code(s): E13.9 - Other specified diabetes mellitus without complications Status: Acute Assessment and Plan: A1c is 6.7 Continue Accu-Cheks, sliding scale insulin, and hypoglycemic protocol Home glipizide on hold Current glucose is 113 (8) Hyponatremia: Code(s): E87.1 - Hypo-osmolality and hyponatremia Status: Acute Assessment and Plan: Sodium remains stable 138 Change Bumex to PO 2mg BID Trend labs Nephro on the case (9) Chest pain: Code(s): R07.9 - Chest pain, unspecified Status: Acute Assessment and Plan: Complaints of a left lower flank pain Trop mildly elevated at 0.042 Chest xray shows new bilateral infiltrates Levaquin restarted No SOB or any other associated symptoms Continue to trend trops No EKG changes Echo stable Time Spent With Patient Time with patient: Greater than 35 minutes Subjective Date/time seen: 06/26/22844 Interval history: 06/26/22844 Patient says she is feels better. She stated that she feels like her swelling is gone down a lot. Renal function has been stable at 1.30. Patient was converted to p.o. Bumex at this time. patient was sitting in the chair and eating fine. Patient denied any chest pain, shortness a breath, nausea, vomiting, diarrhea, constipati
--- NOTE | 2022-06-26 08:45 | P.PNIM_ITS ---
Progress Note: A&P Assessment and Plan (1) Pneumonia: Qualifiers: Pneumonia type: due to unspecified organism Code(s): J18.9 - Pneumonia, unspecified organism Status: Acute Assessment and Plan: * Was recently treated for PNA at outside hospital about 1.5 weeks ago * Chest xray on presentation showed right lower lobe airspace disease compatible with pneumonia * Chest xray 06/25/22 showed new infiltrate on the bilateral lung bases right greater than left * Continue IV levaquin * Sputum culture negative * Blood cultures negative * No leukocytosis, patient afebrile * Supportive care. Guaifenesin, incentive spirometry, Cornet valve (2) Cellulitis: Code(s): L03.90 - Cellulitis, unspecified Status: Suspected Assessment and Plan: Resolved. * Persistent erythema is likely due to chronic venous insufficiency * No signs of acute infection on exam * Completed antibiotics as above. * Supportive care (3) Acute kidney injury: Code(s): N17.9 - Acute kidney failure, unspecified Status: Acute Assessment and Plan: Creatinine on presentation was 0.9 * Creatinine continues to decrease, currently 1.30 * Noted to have nephrotic syndrome * Torsemide and lisinopril on hold * Renal US showed normal kidneys without hydronephrosis * Appreciate nephrology consultation and recommendations * Continue 2mg IV bumex BID, converted to PO * Monitor renal function (4) CHF (congestive heart failure): Qualifiers: Heart failure chronicity: unspecified Heart failure type: unspecified Qualified Code(s): I50.9 - Heart failure, unspecified Code(s): I50.9 - Heart failure, unspecified Status: Acute Assessment and Plan: * CXR with cardiomegaly, no findings of pulmonary edema * Echo showed EF of 60-65% with grade 1 diastolic CHF * Home torsemide on hold. * Continue metoprolol. Hold lisinopril * Change bumex to 2mg PO BID * Trend urine output * daily weights (5) Transaminitis: Code(s): R74.01 - Elevation of levels of liver transaminase levels Status: Acute Assessment and Plan: * LFTs remaining stable. * Hepatitis panel negative * Trend labs * Current AST/ALT 44/43 (6) Hypertension: Code(s): I10 - Essential (primary) hypertension Status: Acute Assessment and Plan: Blood pressures remaining stable * Currently 161/55 * Continue home carvedilol. Hold lisinopril * Will discontinue amlodipine given lower extremity edema * Monitor orthostatics * Trend blood pressure (7) Diabetes 1.5, managed as type 2: Code(s): E13.9 - Other specified diabetes mellitus without complications Status: Acute Assessment and Plan: * A1c is 6.7 * Continue Accu-Cheks, sliding scale insulin, and hypoglycemic protocol * Home glipizide on hold * Current glucose is 113 (8) Hyponatremia: Code(s): E87.1 - Hypo-osmolality and hyponatremia Status: Acute Assessment and Plan: * Sodium remains stable 138 * Change Bumex to PO 2mg BID * Trend labs * Nephro on the case (9) Chest pain: Code(s): R07.9 - Chest pain, unspecified Status: Acute Assessment and Plan: * Complaints of a left lower flank pain * Trop mildly elevated at 0.042 * Chest xray shows new bilateral infiltrates * Levaquin restarted * No SO
[2022-06-26 09:10] VITALS: PULSE 82
[2022-06-26] MEDS: allopurinoL 300 MG TABLET PO (09:10)
[2022-06-26] MEDS: carvediloL 6.25 MG TABLET PO ×2 (09:10→17:04)
[2022-06-26] MEDS: guaiFENesin 12 HR 600 MG TABCR PO ×2 (09:10→22:05)
[2022-06-26] MEDS: ATORVASTATIN 40 MG TABLET PO (09:11)
[2022-06-26] MEDS: DOCUSATE SODIUM 100 MG CAPSULE PO ×2 (09:11→22:05)
[2022-06-26] MEDS: GABAPENTIN 100 MG CAPSULE 200 MG PO ×3 (09:11→17:04)
[2022-06-26] MEDS: polyethylene glycoL 3350 17 GM POWD.PACK PO (09:11)
[2022-06-26] MEDS: BUMETANIDE 1 MG TABLET 2 MG PO ×2 (09:11→17:04)
[2022-06-26] MEDS: ENOXAPARIN 40 MG/0.4 ML SYRINGE SUB-Q (09:11)
[2022-06-26 11:47] LABS: Glucose Point of Care 131 mg/dl (65-105)
[2022-06-26 12:53] LABS: Osmolality, Urine 328 mOsm/kg (50-1200)
--- NOTE | 2022-06-26 12:59 | PM.PNNEP ---
Progress Note: A&P Assessment and Plan (1) Acute kidney injury: Code(s): N17.9 - Acute kidney failure, unspecified Status: Acute Assessment and Plan: the patient had normal kidney function on admission. Her creatinine has risen over the last few days. Her urinalysis shows a specific gravity 1.020. Renal ultrasound is normal. UA shows protein. Urine protein is over 10 g per gram of creatinine. CK is not significantly high. pt's ckd is from diabetes and prerenal azotemia (due to nephrosis). she is getting Bumex orally. Her urine output is good. Creatinine is stable. (2) Hyponatremia: Code(s): E87.1 - Hypo-osmolality and hyponatremia Status: Acute Assessment and Plan: the patient has hyponatremia. TSH is normal. Cortisol is 10. aníbal stim okay most likely due to prerenal azotemia and pneumonia. Sodium level is normal today. (3) CHF (congestive heart failure): Qualifiers: Heart failure chronicity: unspecified Heart failure type: unspecified Qualified Code(s): I50.9 - Heart failure, unspecified Code(s): I50.9 - Heart failure, unspecified Status: Acute Assessment and Plan: Echo shows diastolic dysfunction plus pulmonary hypertension. (4) Pneumonia: Qualifiers: Pneumonia type: due to unspecified organism Code(s): J18.9 - Pneumonia, unspecified organism Status: Acute Assessment and Plan: She is on antibiotics (5) Hypertension: Code(s): I10 - Essential (primary) hypertension Status: Acute Assessment and Plan: blood pressure is running 150 to 160 Will see how it does with the diuresis. Improve on its own. (6) Lower extremity edema: Code(s): R60.0 - Localized edema Status: Acute Assessment and Plan: swelling is new recently. This is multifactorial. She has severe nephrotic syndrome. This is probably from her nephrosis and pulm hypertension. Off albumin. On oral Bumex. Urine output is still good. (7) Diabetes 1.5, managed as type 2: Code(s): E13.9 - Other specified diabetes mellitus without complications Status: Acute Assessment and Plan: Management per hospitalists. Subjective Date/time seen: 06/26/22 12:59 Interval history: 06/23 Surely is feeling about the same today. No chest pain or shortness of breath. She is still very swollen. 06/24 Patient is feeling better. She urinated a lot last night. I see wrinkles in my hands 06/25 pt is feeling okay. edema is better. no sob now she had cp earlier (per LUIS Whatley's note) 06/26 Patient is feeling pretty well. She is getting physical therapy. She is eager for discharge on Wednesday Exam Narrative: WDWN in NAD skin no rash head ncat lungs clear to auscultation cor reg no rub or gallop abd BS+ nontender and soft ext Two to 3+ bilateral edema. some chronic venous stasis changes. Objective Data Vital Signs Vital Signs: Vital Signs - 24 hr 06/25/22 13:46 06/25/22 16:27 06/25/22 22:00 Temperature 98.4 F 97.2 F L Pulse Rate 65 78 60 Respiratory Rate 18 16 Blood Pressure 141/46 H 143/51 H Pulse Oximetry 98 100 Oxygen Delivery 06/25/22 20:00 06/26/22 06:16 06/26/22 09:10 Temperature 98.1 F Pulse Rate 60 82 Respiratory Rate 16 Blood Pressure 161/55 H Pulse Oximetry 94 Oxygen Delivery Room Air 06/26/22 08:00 Temperature Pulse Rate Respiratory Rate Blood Pressure Pulse Oximetry Oxygen Delivery Room Air Intake/Output Intake/Output: Intake & Output 06/23/22 06/24/22 06/25/22 06/26/22 23:59 23:59 23:59 23:59 Intake Total 2490 3152 2710 240 Output Total 7352 4650 3500 3500 Balance 763 -1512 -516 -3968 Meds/Results Medications: Active Medications Generic Name Dose Route Start Last Admin Trade Name Freq PRN Reason Stop Dose Admin Hydrocodone Bitart/Acetaminophen
[2022-06-26 14:00] VITALS: BP 148/66; PULSE 71; RESP 16; TEMP 35.7; O2SAT 96
[2022-06-26 16:34] LABS: Glucose Point of Care 177 mg/dl (65-105)
[2022-06-26 17:04] VITALS: PULSE 78
[2022-06-26 17:54] LABS: Complement Total CH50 48 U/mL (31-60)
[2022-06-26 20:00] VITALS: PULSE 78; RESP 16; O2SAT 96
[2022-06-26 21:27] LABS: Glucose Point of Care 211 mg/dl (65-105)
[2022-06-26 22:00] VITALS: BP 157/61; PULSE 61; RESP 17; TEMP 36.6; O2SAT 93
[2022-06-27 04:38] LABS: Kappa\\Lambda Light Chains 1.05 (0.26-1.65); Lambda Light Chain 74.2 mg/L (5.7-26.3)
[2022-06-27 06:00] VITALS: BP 158/62; PULSE 60; RESP 16; TEMP 36.5; O2SAT 96
[2022-06-27 07:36] LABS: Basophils Absolute Auto 0.1 K/mm3 (0.0-0.1); Basophils Percent Auto 1.2 % (0.2-1.2); Eosinophils Absolute Auto 0.3 K/mm3 (0-0.3); Eosinophils Percent Auto 4.3 % (0-4.4); Hematocrit 38.1 % (37.0-47.0); Hemoglobin 11.8 g/dL (12.0-15.0); Immature Granulocyte Absolute 0.06 K/mm3 (0.00-0.031); Immature Granulocyte Percent A 0.8 % (0-0.5); Lymphocytes Absolute Auto 1.94 K/mm3 (0.9-3.2); Lymphocytes Percent Auto 25.5 % (18.3-44.2); Mean Corpuscular Hemoglobin 25.9 pg (26-34); Mean Corpuscular Volume 83.7 fl (80-100); Mean Platelet Volume 11.6 fl (7.4-10.4); Monocytes Absolute Auto 0.8 K/mm3 (0.1-0.6); Monocytes Percent Auto 9.9 % (2.6-8.5); Neutrophils Absolute Auto 4.4 K/mm3 (1.3-6.7); Neutrophils Percent Auto 58.3 % (45.5-73.1); Platelet Count Result 218 k/mm3 (150-375); Red Blood Count 4.55 M/mm3 (4.2-5.4); Red Cell Distribution Width 15.9 % (11.5-14.5); White Blood Count 7.6 K/mm3 (4.5-10.0)
[2022-06-27 07:42] LABS: Alanine Aminotransferase 36 U/L (6-35); Albumin Level 3.4 g/dL (3.5-5.1); Alkaline Phosphatase 104 U/L (38-126); Anion Gap 7 mmol/L (8-16); Aspartate Amino Transferase 38 U/L (14-36); Bilirubin,Total 0.5 mg/dL (0.2-1.3); Blood Urea Nitrogen 31 mg/dL (7-17); Calcium 9.2 mg/dL (8.4-10.2); Carbon Dioxide 29 mmol/L (22-30); Chloride 99 mmol/L (98-107); Estimated CRCL calculation 32 ml/min; Estimated Glomerular Filt Rate 43; Glucose 126 mg/dL (65-110); Magnesium 2.1 mg/dL (1.6-2.3); Phosphorus 3.7 mg/dL (2.5-4.5); Potassium 3.9 mmol/L (3.4-5.0); Sodium 135 mmol/L (137-145)
[2022-06-27 08:11] VITALS: PULSE 60
[2022-06-27] MEDS: guaiFENesin 12 HR 600 MG TABCR PO ×2 (08:11→20:19)
[2022-06-27] MEDS: carvediloL 6.25 MG TABLET PO ×2 (08:11→17:42)
[2022-06-27] MEDS: ATORVASTATIN 40 MG TABLET PO (08:11)
[2022-06-27] MEDS: BUMETANIDE 1 MG TABLET 2 MG PO ×2 (08:11→17:43)
[2022-06-27] MEDS: polyethylene glycoL 3350 17 GM POWD.PACK PO (08:11)
[2022-06-27] MEDS: ENOXAPARIN 40 MG/0.4 ML SYRINGE SUB-Q (08:11)
[2022-06-27] MEDS: GABAPENTIN 100 MG CAPSULE 200 MG PO ×3 (08:12→17:43)
[2022-06-27] MEDS: allopurinoL 300 MG TABLET PO (08:12)
[2022-06-27] MEDS: DOCUSATE SODIUM 100 MG CAPSULE PO ×2 (08:12→20:19)
[2022-06-27 08:36] LABS: Glucose Point of Care 115 mg/dl (65-105)
--- NOTE | 2022-06-27 08:45 | P.PNIM_ITS ---
Progress Note: A&P Assessment and Plan (1) Pneumonia: Qualifiers: Pneumonia type: due to unspecified organism Code(s): J18.9 - Pneumonia, unspecified organism Status: Acute Assessment and Plan: * Was recently treated for PNA at outside hospital about 1.5 weeks ago * Chest xray on presentation showed right lower lobe airspace disease compatible with pneumonia * Chest xray 06/25/22 showed new infiltrate on the bilateral lung bases right greater than left * Continue IV Levaquin, change to PO * Sputum culture negative * Blood cultures negative * No leukocytosis, patient afebrile * Supportive care. Guaifenesin, incentive spirometry, Cornet valve (2) Cellulitis: Code(s): L03.90 - Cellulitis, unspecified Status: Suspected Assessment and Plan: Resolved. * Persistent erythema is likely due to chronic venous insufficiency * No signs of acute infection on exam * Completed antibiotics as above. * Supportive care (3) Acute kidney injury: Code(s): N17.9 - Acute kidney failure, unspecified Status: Acute Assessment and Plan: Creatinine on presentation was 0.9 * Creatinine continues to decrease, currently 1.20 * Noted to have nephrotic syndrome * Torsemide and lisinopril on hold * Renal US showed normal kidneys without hydronephrosis * Appreciate nephrology consultation and recommendations * Continue 2mg IV bumex BID, converted to PO * Monitor renal function (4) CHF (congestive heart failure): Qualifiers: Heart failure chronicity: unspecified Heart failure type: unspecified Qualified Code(s): I50.9 - Heart failure, unspecified Code(s): I50.9 - Heart failure, unspecified Status: Acute Assessment and Plan: * CXR with cardiomegaly, no findings of pulmonary edema * Echo showed EF of 60-65% with grade 1 diastolic CHF * Home torsemide on hold. * Continue metoprolol. Hold lisinopril * Change bumex to 2mg PO BID * Trend urine output * daily weights (5) Transaminitis: Code(s): R74.01 - Elevation of levels of liver transaminase levels Status: Acute Assessment and Plan: * LFTs remaining stable. * Hepatitis panel negative * Trend labs * Current AST/ALT 38/36 (6) Hypertension: Code(s): I10 - Essential (primary) hypertension Status: Acute Assessment and Plan: Blood pressures remaining stable * Currently 158/62 * Continue home carvedilol. Hold lisinopril * Will discontinue amlodipine given lower extremity edema * Monitor orthostatics * Trend blood pressure (7) Diabetes 1.5, managed as type 2: Code(s): E13.9 - Other specified diabetes mellitus without complications Status: Acute Assessment and Plan: * A1c is 6.7 * Continue Accu-Cheks, sliding scale insulin, and hypoglycemic protocol * Home glipizide on hold * Current glucose is 126 (8) Hyponatremia: Code(s): E87.1 - Hypo-osmolality and hyponatremia Status: Acute Assessment and Plan: * Sodium remains stable 135 * Change Bumex to PO 2mg BID * Trend labs * Nephro on the case * Resolved (9) Chest pain: Code(s): R07.9 - Chest pain, unspecified Status: Acute Assessment and Plan: * Complaints of a left lower flank pain * Trop mildly elevated at 0.042 * Chest xray shows new bilateral infiltrates *
--- NOTE | 2022-06-27 08:45 | PM.IMPN ---
Progress Note: A&P Assessment and Plan (1) Pneumonia: Qualifiers: Pneumonia type: due to unspecified organism Code(s): J18.9 - Pneumonia, unspecified organism Status: Acute Assessment and Plan: Was recently treated for PNA at outside hospital about 1.5 weeks ago Chest xray on presentation showed right lower lobe airspace disease compatible with pneumonia Chest xray 06/25/22 showed new infiltrate on the bilateral lung bases right greater than left Continue IV Levaquin, change to PO Sputum culture negative Blood cultures negative No leukocytosis, patient afebrile Supportive care. Guaifenesin, incentive spirometry, Cornet valve (2) Cellulitis: Code(s): L03.90 - Cellulitis, unspecified Status: Suspected Assessment and Plan: Resolved. Persistent erythema is likely due to chronic venous insufficiency No signs of acute infection on exam Completed antibiotics as above. Supportive care (3) Acute kidney injury: Code(s): N17.9 - Acute kidney failure, unspecified Status: Acute Assessment and Plan: Creatinine on presentation was 0.9 Creatinine continues to decrease, currently 1.20 Noted to have nephrotic syndrome Torsemide and lisinopril on hold Renal US showed normal kidneys without hydronephrosis Appreciate nephrology consultation and recommendations Continue 2mg IV bumex BID, converted to PO Monitor renal function (4) CHF (congestive heart failure): Qualifiers: Heart failure chronicity: unspecified Heart failure type: unspecified Qualified Code(s): I50.9 - Heart failure, unspecified Code(s): I50.9 - Heart failure, unspecified Status: Acute Assessment and Plan: CXR with cardiomegaly, no findings of pulmonary edema Echo showed EF of 60-65% with grade 1 diastolic CHF Home torsemide on hold. Continue metoprolol. Hold lisinopril Change bumex to 2mg PO BID Trend urine output daily weights (5) Transaminitis: Code(s): R74.01 - Elevation of levels of liver transaminase levels Status: Acute Assessment and Plan: LFTs remaining stable. Hepatitis panel negative Trend labs Current AST/ALT 38/36 (6) Hypertension: Code(s): I10 - Essential (primary) hypertension Status: Acute Assessment and Plan: Blood pressures remaining stable Currently 158/62 Continue home carvedilol. Hold lisinopril Will discontinue amlodipine given lower extremity edema Monitor orthostatics Trend blood pressure (7) Diabetes 1.5, managed as type 2: Code(s): E13.9 - Other specified diabetes mellitus without complications Status: Acute Assessment and Plan: A1c is 6.7 Continue Accu-Cheks, sliding scale insulin, and hypoglycemic protocol Home glipizide on hold Current glucose is 126 (8) Hyponatremia: Code(s): E87.1 - Hypo-osmolality and hyponatremia Status: Acute Assessment and Plan: Sodium remains stable 135 Change Bumex to PO 2mg BID Trend labs Nephro on the case Resolved (9) Chest pain: Code(s): R07.9 - Chest pain, unspecified Status: Acute Assessment and Plan: Complaints of a left lower flank pain Trop mildly elevated at 0.042 Chest xray shows new bilateral infiltrates Levaquin restarted No SOB or any other associated symptoms Continue to trend trops No EKG changes Echo stable Time Spent With Patient Time with patient: Greater than 35 minutes Subjective Date/time seen: 06/27/22 08:45 Interval history: 06/27/22844 Patient is lying in bed eating breakfast. She states she feels great and she can see her hands and has wrinkles today. She denies any chest pain, shortness a breath, nausea, vomiting, diarrhea, constipation, weakness or fatigue. She states that she is doing pretty well. 06/26/22844 Patient
[2022-06-27 12:04] LABS: Glucose Point of Care 143 mg/dl (65-105)
--- NOTE | 2022-06-27 12:50 | PM.PNNEP ---
Progress Note: A&P Assessment and Plan (1) Acute kidney injury: Code(s): N17.9 - Acute kidney failure, unspecified Status: Acute Assessment and Plan: normal creatinine on admission rise in creatinine due to use of diuretics in context of chronic prerenal azotemia/nephrosis evaluation to date: renal u/s okay urinalysis with protein UTP/Cr demonstrate 10 grams of proteinuria CPK no significantly elevated despite normal creatinine - suspect has mild CKD (probably from HTN, diabetes, and age) continue oral diuretics follow trend of repeat labs (2) Hyponatremia: Code(s): E87.1 - Hypo-osmolality and hyponatremia Status: Acute Assessment and Plan: improved evaluation: TSH okay cortisol low but stim test okay likely due to pneumonia and prerenal azotemia follow repeat sodium levels (3) CHF (congestive heart failure): Qualifiers: Heart failure chronicity: unspecified Heart failure type: unspecified Qualified Code(s): I50.9 - Heart failure, unspecified Code(s): I50.9 - Heart failure, unspecified Status: Acute Assessment and Plan: recent Echo demonstrates diastolic dysfunction plus pulmonary hypertension tolerating diuretic therapy (4) Pneumonia: Qualifiers: Pneumonia type: due to unspecified organism Code(s): J18.9 - Pneumonia, unspecified organism Status: Acute Assessment and Plan: as noted by imaging clinical improvement noted continue antibiotics (5) Hypertension: Code(s): I10 - Essential (primary) hypertension Status: Chronic Assessment and Plan: off MARIO-I given #1 still a tad high in spite of diuresis if creatinine remains stable, would not be opposed to restart lisinopril (6) Lower extremity edema: Code(s): R60.0 - Localized edema Status: Acute Assessment and Plan: due to nephrotic syndrome and pulmonary hypertension s/p IV albumin tolerating diuretic therapy (7) Diabetes 1.5, managed as type 2: Code(s): E13.9 - Other specified diabetes mellitus without complications Status: Acute Assessment and Plan: follow accuchecks glycemic control Will continue to follow. Subjective Date/time seen: 06/27/22 12:50 Chart reviewed -- following this weekend; overall, she states she feels quite well; swelling/edema continue to improve with interventions to date; no apparent distress noted; no issues/events overnight or earlier this morning. Exam Narrative: General: WD/WN female in NAD Heart: normal S1 and S2; no rub Lungs: clear to auscultation Abdomen: soft, nontender, nondistended, positive bowel sounds Extremities: no cyanosis or clubbing; trace - 1+ edema Skin: some chronic venous stasis changes noted Objective Data Vital Signs Vital Signs: Vital Signs Temp Pulse Resp BP Pulse Ox O2 Del Method 06/27/22 08:00 Room Air 06/27/22 08:11 60 06/27/22 06:00 97.7 F 60 16 158/62 H 96 06/26/22 22:00 97.8 F 61 17 157/61 H 93 06/26/22 20:00 78 16 96 Room Air Intake/Output Intake/Output: Intake & Output 06/24/22 06/25/22 06/26/22 06/27/22 23:59 23:59 23:59 23:59 Intake Total 3152 2710 870 870 Output Total 4650 3500 5700 4400 [facility]1498 -790 -4830 -3530 Meds/Results Medications: Active Medications Generic Name Dose Route Start Last Admin Trade Name Freq PRN Reason Stop Dose Admin Hydrocodone Bitart/Acetaminophen 1 tab 06/17/22 09:00 06/25/22 16:27 Hydrocodone/Acetaminophen (*Crx) 5-325 Mg Tablet PO 1 tab Q6H PRN Administration Pain Rated 4-10 Allopurinol 300 mg 06/16/22 09:00 06/27/22 08:12 Allopurinol 300 Mg Tablet PO 300 mg DAILY ANTWAN Administration Atorvastatin Calcium 40 mg 06/16/22 09:00 06/27/22 08:11 Atorvastatin 40 Mg Tablet PO 40 mg DAILY ANTWAN Administration Bumetanide 2 mg 06/25/22 1
--- NOTE | 2022-06-27 12:50 | P.PNNP_ITS ---
Progress Note: A&P Assessment and Plan (1) Acute kidney injury: Code(s): N17.9 - Acute kidney failure, unspecified Status: Acute Assessment and Plan: * normal creatinine on admission * rise in creatinine due to use of diuretics in context of chronic prerenal azotemia/nephrosis * evaluation to date: * renal u/s okay * urinalysis with protein * UTP/Cr demonstrate 10 grams of proteinuria * CPK no significantly elevated * despite normal creatinine - suspect has mild CKD (probably from HTN, diabetes, and age) * continue oral diuretics * follow trend of repeat labs (2) Hyponatremia: Code(s): E87.1 - Hypo-osmolality and hyponatremia Status: Acute Assessment and Plan: * improved * evaluation: * TSH okay * cortisol low but stim test okay * likely due to pneumonia and prerenal azotemia * follow repeat sodium levels (3) CHF (congestive heart failure): Qualifiers: Heart failure chronicity: unspecified Heart failure type: unspecified Qualified Code(s): I50.9 - Heart failure, unspecified Code(s): I50.9 - Heart failure, unspecified Status: Acute Assessment and Plan: * recent Echo demonstrates diastolic dysfunction plus pulmonary hypertension * tolerating diuretic therapy (4) Pneumonia: Qualifiers: Pneumonia type: due to unspecified organism Code(s): J18.9 - Pneumonia, unspecified organism Status: Acute Assessment and Plan: * as noted by imaging * clinical improvement noted * continue antibiotics (5) Hypertension: Code(s): I10 - Essential (primary) hypertension Status: Chronic Assessment and Plan: * off MARIO-I given #1 * still a tad high in spite of diuresis * if creatinine remains stable, would not be opposed to restart lisinopril (6) Lower extremity edema: Code(s): R60.0 - Localized edema Status: Acute Assessment and Plan: * due to nephrotic syndrome and pulmonary hypertension * s/p IV albumin * tolerating diuretic therapy (7) Diabetes 1.5, managed as type 2: Code(s): E13.9 - Other specified diabetes mellitus without complications Status: Acute Assessment and Plan: * follow accuchecks * glycemic control Will continue to follow. Subjective Date/time seen: 06/27/22 12:50 Chart reviewed -- following this weekend; overall, she states she feels quite well; swelling/edema continue to improve with interventions to date; no apparent distress noted; no issues/events overnight or earlier this morning. Exam Narrative: General: WD/WN female in NAD Heart: normal S1 and S2; no rub Lungs: clear to auscultation Abdomen: soft, nontender, nondistended, positive bowel sounds Extremities: no cyanosis or clubbing; trace - 1+ edema Skin: some chronic venous stasis changes noted Objective Data Vital Signs Vital Signs: Vital Signs Temp Pulse Resp BP Pulse Ox O2 Del Method 06/27/22 08:00 Room Air 06/27/22 08:11 60 06/27/22 06:00 97.7 F 60 16 158/62 H 96 06/26/22 22:00 97.8 F 61 17 157/61 H 93 06/26/22 20:00 78 16 96 Room Air Intake/Output Intake/Output: Intake & Output 06/24/22 06/25/22 06/26/22 06/27/22 23:59 23:59 2
[2022-06-27 14:00] VITALS: BP 147/54; PULSE 60; RESP 20; TEMP 36.6; O2SAT 96
[2022-06-27 16:59] LABS: Glucose Point of Care 130 mg/dl (65-105)
[2022-06-27 17:42] VITALS: PULSE 50
[2022-06-27 21:26] LABS: Glucose Point of Care 195 mg/dl (65-105)
[2022-06-27 22:00] VITALS: BP 162/57; PULSE 64; RESP 17; TEMP 37.3; O2SAT 95
[2022-06-28 06:00] VITALS: BP 163/53; PULSE 60; RESP 18; TEMP 36.3; O2SAT 92
[2022-06-28 08:10] LABS: Glucose Point of Care 112 mg/dl (65-105)
[2022-06-28 08:14] LABS: Alanine Aminotransferase 31 U/L (6-35); Alkaline Phosphatase 98 U/L (38-126); Anion Gap 5 mmol/L (8-16); Aspartate Amino Transferase 37 U/L (14-36); Bilirubin,Total 0.5 mg/dL (0.2-1.3); Blood Urea Nitrogen 29 mg/dL (7-17); Calcium 8.7 mg/dL (8.4-10.2); Carbon Dioxide 30 mmol/L (22-30); Chloride 102 mmol/L (98-107); Estimated CRCL calculation 32 ml/min; Estimated Glomerular Filt Rate 43; Glucose 119 mg/dL (65-110); Potassium 3.5 mmol/L (3.4-5.0); Sodium 137 mmol/L (137-145)
[2022-06-28 08:20] LABS: Basophils Absolute Auto 0.1 K/mm3 (0.0-0.1); Basophils Percent Auto 1.1 % (0.2-1.2); Eosinophils Absolute Auto 0.3 K/mm3 (0-0.3); Eosinophils Percent Auto 4.4 % (0-4.4); Hematocrit 36.7 % (37.0-47.0); Hemoglobin 11.5 g/dL (12.0-15.0); Immature Granulocyte Absolute 0.07 K/mm3 (0.00-0.031); Lymphocytes Percent Auto 23.4 % (18.3-44.2); Mean Corpuscular HGB Conc 31.3 g/dl (32-36); Mean Corpuscular Hemoglobin 26.1 pg (26-34); Mean Corpuscular Volume 83.2 fl (80-100); Mean Platelet Volume 11.3 fl (7.4-10.4); Monocytes Absolute Auto 0.8 K/mm3 (0.1-0.6); Monocytes Percent Auto 10.7 % (2.6-8.5); Neutrophils Absolute Auto 4.3 K/mm3 (1.3-6.7); Neutrophils Percent Auto 59.4 % (45.5-73.1); Platelet Count Result 202 k/mm3 (150-375); Red Blood Count 4.41 M/mm3 (4.2-5.4); Red Cell Distribution Width 15.8 % (11.5-14.5); White Blood Count 7.3 K/mm3 (4.5-10.0)
[2022-06-28] MEDS: BUMETANIDE 1 MG TABLET 2 MG PO (09:14)
[2022-06-28] MEDS: ATORVASTATIN 40 MG TABLET PO (09:14)
[2022-06-28] MEDS: DOCUSATE SODIUM 100 MG CAPSULE PO (09:14)
[2022-06-28] MEDS: GABAPENTIN 100 MG CAPSULE 200 MG PO ×2 (09:14→12:06)
[2022-06-28] MEDS: ENOXAPARIN 40 MG/0.4 ML SYRINGE SUB-Q (09:14)
[2022-06-28] MEDS: allopurinoL 300 MG TABLET PO (09:14)
[2022-06-28] MEDS: guaiFENesin 12 HR 600 MG TABCR PO (09:14)
[2022-06-28] MEDS: polyethylene glycoL 3350 17 GM POWD.PACK PO (09:15)
[2022-06-28 09:16] VITALS: PULSE 60
[2022-06-28] MEDS: carvediloL 6.25 MG TABLET PO (09:16)
--- NOTE | 2022-06-28 09:30 | P.DS_ITS ---
DS: Admitting Diagnosis Discharge Date 06/28/22929 Admitting Diagnosis PNA, CHF excerbation, Cellutitis, IVY DS: Discharge Diagnosis Discharge Diagnosis (1) Pneumonia: Qualifiers: Pneumonia type: due to unspecified organism Code(s): J18.9 - Pneumonia, unspecified organism Status: Acute Assessment and Plan: * Was recently treated for PNA at outside hospital about 1.5 weeks ago * Chest xray on presentation showed right lower lobe airspace disease compatible with pneumonia * Chest xray 06/25/22 showed new infiltrate on the bilateral lung bases right greater than left * Continue IV Levaquin, change to PO * Sputum culture negative * Blood cultures negative * No leukocytosis, patient afebrile * Supportive care. Guaifenesin, incentive spirometry, Cornet valve (2) Cellulitis: Code(s): L03.90 - Cellulitis, unspecified Status: Suspected Assessment and Plan: Resolved. * Persistent erythema is likely due to chronic venous insufficiency * No signs of acute infection on exam * Completed antibiotics as above. * Supportive care (3) Acute kidney injury: Code(s): N17.9 - Acute kidney failure, unspecified Status: Acute Assessment and Plan: Creatinine on presentation was 0.9 * Creatinine continues to decrease, currently 1.20 * Noted to have nephrotic syndrome * Torsemide and lisinopril on hold * Renal US showed normal kidneys without hydronephrosis * Appreciate nephrology consultation and recommendations * Continue 2mg IV bumex BID, converted to PO * Monitor renal function (4) CHF (congestive heart failure): Qualifiers: Heart failure chronicity: unspecified Heart failure type: unspecified Qualified Code(s): I50.9 - Heart failure, unspecified Code(s): I50.9 - Heart failure, unspecified Status: Acute Assessment and Plan: * CXR with cardiomegaly, no findings of pulmonary edema * Echo showed EF of 60-65% with grade 1 diastolic CHF * Home torsemide on hold. * Continue metoprolol. Hold lisinopril * Change bumex to 2mg PO BID * Trend urine output * daily weights (5) Transaminitis: Code(s): R74.01 - Elevation of levels of liver transaminase levels Status: Acute Assessment and Plan: * LFTs remaining stable. * Hepatitis panel negative * Trend labs * Current AST/ALT 38/36 (6) Hypertension: Code(s): I10 - Essential (primary) hypertension Status: Chronic Assessment and Plan: Blood pressures remaining stable * Currently 158/62 * Continue home carvedilol. Hold lisinopril * Will discontinue amlodipine given lower extremity edema * Monitor orthostatics * Trend blood pressure (7) Diabetes 1.5, managed as type 2: Code(s): E13.9 - Other specified diabetes mellitus without complications Status: Acute Assessment and Plan: * A1c is 6.7 * Continue Accu-Cheks, sliding scale insulin, and hypoglycemic protocol * Home glipizide on hold * Current glucose is 126 (8) Hyponatremia: Code(s): E87.1 - Hypo-osmolality and hyponatremia Status: Acute Assessment and Plan: * Sodium remains stable 135 * Change Bumex to PO 2mg BID * Trend labs * Nephro on the case * Resolved (9) Chest pain: Code(s): R07.9 - Chest pain, unspecified Status: Acute Assessme
--- NOTE | 2022-06-28 09:30 | PM.DS ---
DS: Admitting Diagnosis Discharge Date 06/28/22929 Admitting Diagnosis PNA, CHF excerbation, Cellutitis, IVY DS: Discharge Diagnosis Discharge Diagnosis (1) Pneumonia: Qualifiers: Pneumonia type: due to unspecified organism Code(s): J18.9 - Pneumonia, unspecified organism Status: Acute Assessment and Plan: Was recently treated for PNA at outside hospital about 1.5 weeks ago Chest xray on presentation showed right lower lobe airspace disease compatible with pneumonia Chest xray 06/25/22 showed new infiltrate on the bilateral lung bases right greater than left Continue IV Levaquin, change to PO Sputum culture negative Blood cultures negative No leukocytosis, patient afebrile Supportive care. Guaifenesin, incentive spirometry, Cornet valve (2) Cellulitis: Code(s): L03.90 - Cellulitis, unspecified Status: Suspected Assessment and Plan: Resolved. Persistent erythema is likely due to chronic venous insufficiency No signs of acute infection on exam Completed antibiotics as above. Supportive care (3) Acute kidney injury: Code(s): N17.9 - Acute kidney failure, unspecified Status: Acute Assessment and Plan: Creatinine on presentation was 0.9 Creatinine continues to decrease, currently 1.20 Noted to have nephrotic syndrome Torsemide and lisinopril on hold Renal US showed normal kidneys without hydronephrosis Appreciate nephrology consultation and recommendations Continue 2mg IV bumex BID, converted to PO Monitor renal function (4) CHF (congestive heart failure): Qualifiers: Heart failure chronicity: unspecified Heart failure type: unspecified Qualified Code(s): I50.9 - Heart failure, unspecified Code(s): I50.9 - Heart failure, unspecified Status: Acute Assessment and Plan: CXR with cardiomegaly, no findings of pulmonary edema Echo showed EF of 60-65% with grade 1 diastolic CHF Home torsemide on hold. Continue metoprolol. Hold lisinopril Change bumex to 2mg PO BID Trend urine output daily weights (5) Transaminitis: Code(s): R74.01 - Elevation of levels of liver transaminase levels Status: Acute Assessment and Plan: LFTs remaining stable. Hepatitis panel negative Trend labs Current AST/ALT 38/36 (6) Hypertension: Code(s): I10 - Essential (primary) hypertension Status: Chronic Assessment and Plan: Blood pressures remaining stable Currently 158/62 Continue home carvedilol. Hold lisinopril Will discontinue amlodipine given lower extremity edema Monitor orthostatics Trend blood pressure (7) Diabetes 1.5, managed as type 2: Code(s): E13.9 - Other specified diabetes mellitus without complications Status: Acute Assessment and Plan: A1c is 6.7 Continue Accu-Cheks, sliding scale insulin, and hypoglycemic protocol Home glipizide on hold Current glucose is 126 (8) Hyponatremia: Code(s): E87.1 - Hypo-osmolality and hyponatremia Status: Acute Assessment and Plan: Sodium remains stable 135 Change Bumex to PO 2mg BID Trend labs Nephro on the case Resolved (9) Chest pain: Code(s): R07.9 - Chest pain, unspecified Status: Acute Assessment and Plan: Complaints of a left lower flank pain Trop mildly elevated at 0.042 Chest xray shows new bilateral infiltrates Levaquin restarted No SOB or any other associated symptoms Continue to trend trops No EKG changes Echo stable DS: Summary Hospital Course Hospital Course: Patient is a 7-year-old female with a past medical history of diabetes, pancreatitis, pneumonia, CHF who presented to the ED with complaints of bilateral lower extremity edema. Upon arrival patient was placed on IV furosemide for diuresis. Chest x-ray upon arrival also showed pneum
[2022-06-28 12:12] LABS: Glucose Point of Care 155 mg/dl (65-105)
[2022-06-28] MEDS: EMPAGLIFLOZIN 25 MG TABLET PO (14:32)
[2022-06-28 15:17] LABS: EDCOVIDSCREEN Negative (Negative)
[2022-06-28 15:37] LABS: Glucose Point of Care 165 mg/dl (65-105)
[2022-07-01 13:49] LABS: Albumin 61 %; Measured Kappa Chains 5.31 mg/dL (<2.00); Measured Lambda Chains 3.69 mg/dL (<2.00); Pro/Creat Ratio 12137 mg/g creat (<150); Total Kappa Chains 164.61 mg/24 h; Total Lambda Chains 114.39 mg/24 h
[2022-07-01 14:51] LABS: Creat 24 Hr 0.73; Protein,total, 24 Hr Ur 8804 mg/24h
== END 2022-06-28 16:18 | DRG 193 ==
LOC: ANHED 14:05 → ANH3MEDSUR 16:55
PROVIDERS: Internal Medicine Nephrology; Physician Assistant; Admitting Provider Chiropractor; Emergency Provider Emergency Medicine; Visit Provider Nurse Practitioner
DX: J18.9 Pneumonia, unspecified organism (principal); I50.33 Acute on chronic diastolic (congestive) heart failure; L03.115 Cellulitis of right lower limb; L03.116 Cellulitis of left lower limb; E87.1 Hypo-osmolality and hyponatremia; N17.9 Acute kidney failure, unspecified; I11.0 Hypertensive heart disease with heart failure; E13.21 Other specified diabetes mellitus with diabetic nephropathy; I27.20 Pulmonary hypertension, unspecified; Z20.822 Contact with and (suspected) exposure to COVID-19; E78.5 Hyperlipidemia, unspecified; I48.91 Unspecified atrial fibrillation; I87.2 Venous insufficiency (chronic) (peripheral); E13.40 Other specified diabetes mellitus with diabetic neuropathy, unspecified; Z96.641 Presence of right artificial hip joint; Z96.652 Presence of left artificial knee joint; Z90.49 Acquired absence of other specified parts of digestive tract; Z95.0 Presence of cardiac pacemaker; Z86.718 Personal history of other venous thrombosis and embolism; Z90.710 Acquired absence of both cervix and uterus
CPT/HCPCS: 36415; 71045; 71046; 71250; 76775; 80048; 80053; 80069; 80074; 80202; 81001; 82533; 82550; 82565; 82570; 82948; 83036; 83735; 83880; 83883; 83930; 83935; 84100; 84156; 84295; 84300; 84443; 84484; 84540; 85025; 85027; 85055; 85652; 86038; 86039; 86140; 86160; 86162; 86334; 86335; 87040; 87070; 87205; 87426; 93005; 93306; 93970; 97110; 97116; 97161; 97165; 97530; 97535; 99285; A9270; C1751; C9803; J0834; J1650; J1815; J1940; J1956; J3370; P9047; U0003; U0005

== ENCOUNTER 2022-08-25 13:41 | Emergency (ER) | payer MEDICARE, OTHER, SELFPAY ==
--- NOTE | ~2022-08-25 | CT_ITS ---
EXAMINATION: CT lumbar spine wo con DATE: 08/25/2022 18:33 INDICATION: fall, trauma . TECHNIQUE: Computed tomography (CT) of the lumbar spine was performed without intravenous contrast. A utomated exposure control and iterative reconstruction technique were employed. [facility] 1379.53 mGy-cm. COMPARISON: None. FINDINGS: 5 nonrib-bearing lumbar-type vertebral bodies. Pedicles intact. Exaggerated lumbar lordosis . Normal vertebral body alignment. Vertebral body heights preserved. Multilevel severe degenerative d isc disease. Multilevel severe facet arthropathy. Multilevel severe bilateral neural foraminal narrow ing and severe central canal narrowing. Partial visualization of the inferior aspect of pacer leads. Atherosclerotic calcifications. Left renal scarring. Distended urinary bladder. IMPRESSION: No acute fracture or traumatic malalignment in the lumbar spine. Severe degenerative changes in the l umbar spine. Reviewed, dictated and finalized at location K. MING PO[employer] SERVICE TECHNICIAN IMPRESSION: No acute fracture or traumatic malalignment in the lumbar spine. Severe degener ative changes in the lumbar spine.
--- NOTE | ~2022-08-25 | CT_ITS ---
EXAMINATION: CT brain wo con DATE: 08/25/2022 18:29 INDICATION: fall, head trauma . TECHNIQUE: Computed tomography (CT) of the head was performed without intravenous contrast. The mA wa s adjusted according to patient size. Iterative reconstruction technique was employed. The dose-lengt h product was 756.67 mGy-cm. COMPARISON: None. FINDINGS: No acute intracranial hemorrhage or extra-axial fluid collection. No hydrocephalus or herniation. No acute ischemic infarct. 1.5 cm peripherally calcified, ovoid mass at the level of the left cavernous sinus, extending from th e left internal carotid artery. 1.1 x 1.4 cm calcified, hemispheric, dural based mass in the left ant erior cranial fossa, extending off the anterior falx. Unremarkable dural venous sinus attenuation. No acute osseous abnormality. The aerated spaces are clear. Mild atrophy and chronic white matter change. Bilateral basal ganglia calcification Atherosclerotic i ntracranial calcification. Bilateral lens replacements. IMPRESSION: No acute intracranial process. 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 1.4 cm left anterior cranial fossa meningioma. Reviewed, dictated and finalized at location K. S DEVELOPMENT DIRECTOR IMPRESSION: No acute intracranial process. 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 1.4 cm left anterior cranial fossa meningioma .
--- NOTE | ~2022-08-25 | CT_ITS ---
EXAMINATION: CT pelvis wo con DATE: 08/25/2022 18:35 INDICATION: Fall, trauma. TECHNIQUE: Computed tomography (CT) of the pelvis was performed without intravenous contrast. Automat ed exposure control and iterative reconstruction technique were employed. The dose-length product was 731.95 mGy-cm. COMPARISON: None FINDINGS: Osteopenia. Lumbar degenerative disc disease. Degenerative changes in the bilateral SI join ts, left hip, and pubic symphysis. Scattered enthesopathy. Right hip arthroplasty, without evident co mplication. No osseous fracture or dislocation. Colonic diverticuli. Distended urinary bladder. Ather osclerotic calcification. IMPRESSION: No acute osseous finding in the pelvis. Reviewed, dictated and finalized at location K. [facility] NURSE STAFF
[2022-08-25 13:44] VITALS: BP 149/61; PULSE 85; RESP 16; TEMP 36.3; O2SAT 97
--- NOTE | 2022-08-25 13:46 | ECG_ITS ---
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
[2022-08-25 14:00] LABS: Basophils Absolute Auto 0.1 K/mm3 (0.0-0.1); Eosinophils Absolute Auto 0.1 K/mm3 (0-0.3); Eosinophils Percent Auto 2.2 % (0-4.4); Hematocrit 51.9 % (37.0-47.0); Hemoglobin 16.6 g/dL (12.0-15.0); Immature Granulocyte Absolute 0.04 K/mm3 (0.00-0.031); Immature Granulocyte Percent A 0.6 % (0-0.5); Lymphocytes Absolute Auto 2.22 K/mm3 (0.9-3.2); Lymphocytes Percent Auto 35.2 % (18.3-44.2); Mean Corpuscular Hemoglobin 27.2 pg (26-34); Mean Corpuscular Volume 84.9 fl (80-100); Mean Platelet Volume 11.2 fl (7.4-10.4); Monocytes Absolute Auto 0.3 K/mm3 (0.1-0.6); Monocytes Percent Auto 5.1 % (2.6-8.5); Neutrophils Absolute Auto 3.5 K/mm3 (1.3-6.7); Neutrophils Percent Auto 55.9 % (45.5-73.1); Platelet Count Result 148 k/mm3 (150-375); Red Blood Count 6.11 M/mm3 (4.2-5.4); Red Cell Distribution Width 17.4 % (11.5-14.5); White Blood Count 6.3 K/mm3 (4.5-10.0)
[2022-08-25 14:09] LABS: Alanine Aminotransferase 43 U/L (6-35); Albumin Level 3.3 g/dL (3.5-5.1); Alkaline Phosphatase 121 U/L (38-126); Anion Gap 5 mmol/L (8-16); Aspartate Amino Transferase 48 U/L (14-36); Bilirubin,Total 0.5 mg/dL (0.2-1.3); Blood Urea Nitrogen 53 mg/dL (7-17); Calcium 9.5 mg/dL (8.4-10.2); Carbon Dioxide 24 mmol/L (22-30); Chloride 107 mmol/L (98-107); Estimated Glomerular Filt Rate 36; Glucose 220 mg/dL (65-110); Potassium 4.7 mmol/L (3.4-5.0); Sodium 136 mmol/L (137-145)
--- NOTE | 2022-08-25 16:41 | ED.DIZZY ---
HPI - Dizziness General Chief Complaint: Dizziness Stated Complaint: n/v Time Seen by Provider: 08/25/22 16:41 Source: patient and family Mode of arrival: ambulatory Limitations: no limitations History of Present Illness HPI Narrative: Patient is an 87-year-old female with a history of hypertension, hyperlipidemia, type 2 diabetes, gout, presenting to the emergency department for evaluation dizziness, lightheadedness episode that occurred approximately 6 hours ago. Unfortunately, patient had prolonged time in the waiting room. Patient's history is provided mostly by the patient's son and [id number] who are her primary caregivers. Patient has had 3 episodes of lightheadedness and dizziness over the past several weeks. This was the third episode that occurred today. Patient had onset of lightheadedness and dizziness after eating. Patient did not lose consciousness. No chest pain. Patient did endorse a slight room spinning sensation with ambulation. She felt nauseous. Patient was brought to the emergency department by family. Of note, patient also endorsing mild headache, without current dizziness at the time of my assessment. No thunderclap sensation to headache. No vision changes. No speech changes. No dysarthria. She denies any chest pain, shortness of breath, abdominal pain. She reports nausea without any episodes of emesis. She reports that her Jardiance was recently changed and has been attributing some of her intermittent dizziness to the symptoms. Patient denies palpitations. No loss of consciousness. Patient reports that she fell approximately 1 month ago and did hit her head. At that time, patient did not lose consciousness or have any altered mentation. She did not have any reported pain and was ambulating at baseline so family did not bring her to the hospital for evaluation. No use of chronic anticoagulation per family. No recent infections. Patient denies any dysuria or hematuria. Patient also states she has been struggling with left-sided lower back pain and pain in her buttock over the past 5 days. It is exacerbated with standing and sitting but seems to improve when the patient is walking or at rest. Patient denies focal weakness or numbness. She denies saddle anesthesia. She denies difficulty with bowel or bladder function. Patient was seen by her primary care physician regarding this pain and advised to physical therapy which she has been able to complete without much difficulty. She has been taking Tylenol without much improvement in her back pain. Patient states her back pain was exacerbated by the prolonged waiting room time. Related Data Home Medications Medication Instructions Recorded Confirmed allopurinol 300 mg tablet 300 mg PO DAILY 06/15/22 06/15/22 atorvastatin 40 mg tablet 40 mg PO DAILY 06/15/22 06/15/22 carvedilol 6.25 mg tablet 6.25 mg PO BID 06/15/22 06/15/22 estradiol 0.01% (0.1 mg/gram) 1 applic vaginal PRN PRN Vaginal 06/15/22 06/15/22 vaginal cream Dryness lisinopril 20 mg tablet 20 mg PO DAILY 06/15/22 06/15/22 menthol 0.44 %-zinc oxide 20.6 % 1 applic topical QID PRN Wound Care 06/15/22 06/15/22 topical ointment (Calmoseptine) Allergies Allergy/AdvReac Type Severity Reaction Status Date / Time clarithromycin Allergy Swelling Verified 06/15/22 17:52 of Lip/Tongue/Throat doxycycline Allergy Swelling Verified 06/15/22 17:52 of Lip/Tongue/Throat esomeprazole Allergy Swelling Verified 06/15/22 17:52 of Lip/Tongue/Throat iron Allergy Swelling Verified 06/15/22 17:52 of Lip/Tongue/Throat magnesium Allergy Swelling Verified 06/15/22 17:52 of Lip/Tongue/Throat naproxen Allergy Swelling Verified 06/15/22 17:52 of Lip/Tongue/Throat Penicillins Allergy Swelling Verified 06/15/22 17:52 of Lip/Tongue/Throat Sulfa (Sulfonamide Allergy Swelling Verified 06/15/22 17:52 Antibiotics) of Lip/Tongue/Throat
[2022-08-25 17:30] VITALS: BP 169/87; PULSE 61
[2022-08-25 17:35] VITALS: BP 134/69; PULSE 63
[2022-08-25] MEDS: oxyCODONE/ACETAMINOPHEN (*CRX) 5-325 MG TABLET 1 TABLET PO (17:35)
[2022-08-25] MEDS: MECLIZINE HCL 25 MG TABLET PO (17:35)
[2022-08-25] MEDS: diazePAM (*CRX) 5 MG TABLET PO (17:35)
[2022-08-25] MEDS: ONDANSETRON INJ 4 MG/2 ML VIAL IV PUSH (17:36)
[2022-08-25 17:40] VITALS: BP 131/56
[2022-08-25] MEDS: SODIUM CHLORIDE 0.9% IV 1,000 ML 999 ML IV CONT (18:26)
[2022-08-25 18:35] LABS: Troponin I 0.028 ng/mL (0.000-0.034)
== END 2022-08-25 22:11 | disposition home or self-care (01) ==
PROVIDERS: Emergency Medicine; Emergency Provider Emergency Medicine
DX: I67.1 Cerebral aneurysm, nonruptured (principal); D32.0 Benign neoplasm of cerebral meninges; E86.0 Dehydration; M54.50 Low back pain, unspecified; M79.605 Pain in left leg; E78.5 Hyperlipidemia, unspecified; I50.9 Heart failure, unspecified; I11.0 Hypertensive heart disease with heart failure; E13.9 Other specified diabetes mellitus without complications; M10.9 Gout, unspecified; Z95.0 Presence of cardiac pacemaker; Z96.641 Presence of right artificial hip joint; Z96.652 Presence of left artificial knee joint; Z90.710 Acquired absence of both cervix and uterus; Z86.718 Personal history of other venous thrombosis and embolism; Z87.01 Personal history of pneumonia (recurrent); Z79.84 Long term (current) use of oral hypoglycemic drugs; I45.2 Bifascicular block
CPT/HCPCS: 36415; 70450; 72131; 72192; 80053; 84484; 85025; 93005; 96361; 96374; 99284; A9270; J2405; J7030

== ENCOUNTER 2022-09-21 10:57 | Emergency (ER) | payer MEDICARE, OTHER, SELFPAY ==
[2022-09-21 11:12] VITALS: BP 153/67; PULSE 62; RESP 16; O2SAT 100
[2022-09-21 11:21] VITALS: TEMP 36.4
--- NOTE | 2022-09-21 12:08 | ED.LOWEXIN ---
HPI - Extremity Injury (Lower) General Chief Complaint: Fall Stated Complaint: left hip pain Time Seen by Provider: 09/21/22 11:12 History of Present Illness HPI Narrative: This is an 87-year-old female with past medical history of coronary artery disease and reported history of left-sided sciatica, who presents to the emergency department complaining of left leg pain. She states the pain is generally dull, though increases to moderate and sharp with radiation to the left toe. She has had difficulty with pain management at home. It has not changed since being seen approximately 1 month ago. Related Data Home Medications Medication Instructions Recorded Confirmed allopurinol 300 mg tablet 300 mg PO DAILY 06/15/22 06/15/22 atorvastatin 40 mg tablet 40 mg PO DAILY 06/15/22 06/15/22 carvedilol 6.25 mg tablet 6.25 mg PO BID 06/15/22 06/15/22 estradiol 0.01% (0.1 mg/gram) 1 applic vaginal PRN PRN Vaginal 06/15/22 06/15/22 vaginal cream Dryness lisinopril 20 mg tablet 20 mg PO DAILY 06/15/22 06/15/22 menthol 0.44 %-zinc oxide 20.6 % 1 applic topical QID PRN Wound Care 06/15/22 06/15/22 topical ointment (Calmoseptine) Allergies Allergy/AdvReac Type Severity Reaction Status Date / Time clarithromycin Allergy Swelling Verified 09/21/22 11:20 of Lip/Tongue/Throat doxycycline Allergy Swelling Verified 09/21/22 11:20 of Lip/Tongue/Throat esomeprazole Allergy Swelling Verified 09/21/22 11:20 of Lip/Tongue/Throat iron Allergy Swelling Verified 09/21/22 11:20 of Lip/Tongue/Throat magnesium Allergy Swelling Verified 09/21/22 11:20 of Lip/Tongue/Throat naproxen Allergy Swelling Verified 09/21/22 11:20 of Lip/Tongue/Throat Penicillins Allergy Swelling Verified 09/21/22 11:20 of Lip/Tongue/Throat Sulfa (Sulfonamide Allergy Swelling Verified 09/21/22 11:20 Antibiotics) of Lip/Tongue/Throat tetracycline Allergy Swelling Verified 09/21/22 11:20 of Lip/Tongue/Throat Review of Systems Review of Systems: CONSTITUTIONAL: Denies fever, chills, or sweats. EYES: Denies visual changes, redness, or discharge. ENT: Denies rhinorrhea, congestion, sore throat, or otalgia. CARDIOVASCULAR: Denies chest pain, palpitations, or edema. RESPIRATORY: Denies cough or dyspnea. GASTROINTESTINAL: Denies abdominal pain, nausea, vomiting, or diarrhea. GENITOURINARY: Denies dysuria or hematuria. SKIN: Denies rash or itching. MUSCULOSKELETAL: Left leg pain Denies back pain, joint pain, or myalgia. NEUROLOGIC: Denies loss of bowel or bladder control, denies headache, numbness, dizziness, or weakness. PSYCHIATRIC: Denies anxiety or depression. [facility] Past Medical History Medical History Blepharitis of both eyes Bronchitis Carpal tunnel syndrome CHF (congestive heart failure) Diabetes 1.5, managed as type 2 Hypertension Left leg DVT Pacemaker Pancreatitis Pneumonia Rheumatic fever Tendinitis Surgical History Surgical History History of appendectomy History of hysterectomy History of left knee replacement S/P cholecystectomy Status post total hip replacement, right Family History Family History Mother Acute myocardial infarction Diabetes mellitus Brain cancer Father Acute myocardial infarction Cerebrovascular accident Heart disease Hypertension Social History Social History Social History: Patient currently lives with her son. Patient does have 3 sons however want just . Patient just recently moved up here from [place] and is currently living in [place]. Patient wishes to be a full code at this time. Smoking status: Never smoker Alcohol intake: never Substance use: never Lack of Transportation: No
[2022-09-21] MEDS: CYCLOBENZAPRINE HCL 5 MG TABLET PO ×2 (12:30→13:32)
[2022-09-21 13:32] VITALS: BP 128/70; PULSE 60; RESP 18; TEMP 36.6; O2SAT 98
== END 2022-09-21 13:38 | disposition home or self-care (01) ==
PROVIDERS: Emergency Provider Preventive Medicine Aerospace Medicine; PCP Nurse Practitioner Family
DX: M54.32 Sciatica, left side (principal); I11.0 Hypertensive heart disease with heart failure; I50.9 Heart failure, unspecified; Z95.0 Presence of cardiac pacemaker; E10.9 Type 1 diabetes mellitus without complications
CPT/HCPCS: 99283; A9270

== ENCOUNTER 2022-10-29 08:23 | Outpatient (CLI) | payer MEDICARE, OTHER, SELFPAY ==
[2022-10-21 09:19] VITALS: BMI 23.2
--- NOTE | 2022-10-21 09:19 | PC.NURSE ---
Pre Radiology instructions Report to the outpatient [facility] on date _10/29/22 @ 0830____ Procedure Time: __1030__ YOU MAY BE MONITORED AT HOSPITAL FOR UP TO 4 HOURS AFTER YOUR PROCEDURE. A visitors will be allowed to accompany the patient into the hospital. ?The visitor will be instructed to remain with patient at all times or leave the building due to restrictions.? We will allow the visitor to come back to the postoperative area when patient is ready.? NO children visitors allowed at this time. You and your visitor will be asked to self-screen and do not enter if you have any COVID symptoms. A mask is OPTIONAL within the hospital. Patients are to have no food or drink 6 hours prior to procedure time (0430 AM) Driving will be restricted after the procedure, you must have a person to drive you home. Labs will be drawn in preop area and once reviewed, you will be taken to radiology area for procedure. When the procedure is completed, you will be taken to outpatient where you will be monitored for several hours. You may have one visitor in this area. Other than holding anti-coagulants, patient may take other medication(s) as scheduled. Prior to your appointment date patients are instructed to hold anti-coagulants after discussing with ordering provider to stop. If unable to discontinue anti-coagulants please notify radiologist. ? No aspirin or warfarin (Coumadin) for 7 days prior to the procedure. ? No clopidogrel (Plavix), ticagrelor (Brilinta), prasugrel (Effient) or dabigatran (Pradaxa) for 5 days prior to the procedure. ? No rivaroxaban (Xarelto), apixaban (Eliquis), dipyridamole (Aggrenox or Persantine) or cilostazol (Pletal) for 2 days prior to the procedure. Medications to discontinue per physician: ___NONE Date to take last dose: Please leave all valuables, including medications, at home the day of procedure. The hospital will not accept responsibility for valuables. Wear comfortable, loose fitting clothing.? Follow any additional instructions given to you from ordering provider. Telephone instructions given to _PT'S SON (NAOMI)__and asked if any additional questions and then verbalized understanding. Patient advised to call scheduling provider office or registration scheduling [phone] if any additional questions.
[2022-10-29] VITALS (11 sets, daily range): BP systolic 116–143; BP diastolic 45–58; PULSE 59–68; RESP 13–17; TEMP 36; O2SAT 98
--- NOTE | ~2022-10-29 | US_ITS ---
EXAMINATION: US biopsy renal DATE: 10/29/2022 10:47 INDICATION: Nephrotic range proteinuria. TECHNIQUE: The procedure including the risks, benefits, and alternatives was discussed with the patie nt. Risks discussed included bleeding and infection. The patient understood the risks and agreed to p roceed. A timeout was performed to verify the patient's name, date of , and procedure to be p erformed. The skin overlying the left kidney was prepped and draped in usual sterile fashion. Anest hetic was administered with 1% lidocaine subcutaneously. An 18 gauge core biopsy needle was then use d to obtain multiple core biopsy specimens under continuous sonographic guidance. The entry site was cleaned and dressed. There were no immediate complications. FINDINGS: Ultrasound images demonstrate the needle in the kidney. IMPRESSION: 1. Ultrasound-guided random left kidney core needle biopsy. Reviewed, dictated and finalized at location A.
[2022-10-29 09:09] LABS: INR 1.1; Prothrombin Time 13.5 Seconds (11.1-14.7)
[2022-10-29 12:32] LABS: Glucose Point of Care 191 mg/dl (65-105)
[2022-10-29] MEDS: ACETAMINOPHEN 500 MG TABLET 1000 MG PO (12:33)
== END 2022-10-29 14:50 | disposition home or self-care (01) ==
PROVIDERS: Radiology Diagnostic Radiology; PCP Nurse Practitioner Family; Referring Provider Internal Medicine Nephrology; Visit Provider Radiology Diagnostic Radiology
PROC: (CPT 76942; principal; 2022-10-29 10:30)
DX: R80.1 Persistent proteinuria, unspecified (principal)
CPT/HCPCS: 36415; 50200; 76942; 82948; 85610; 88300; 88305; 88313; 88329; 88346; 88348; 88350; A9270

== ENCOUNTER → 2023-09-27 14:00 | Outpatient (CLI) | payer MEDICARE, OTHER, SELFPAY ==
--- NOTE | ~2023-09-27 | XR_ITS ---
EXAM: XR knee RT 3V DATE: 09/27/2023 14:21 HISTORY: M25.561 - Pain in right knee . COMPARISON: None available. FINDINGS: Decreased mineralization. No fracture or dislocation. No lytic or blastic lesion. Moderate medial and lateral joint space narrowing. Moderate tricompartmental osteophytosis. Chondrocalcinosis . Mild quadriceps enthesopathy. No erosion or periosteal change. Scattered vascular calcifications. IMPRESSION: Osteopenia. 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 Reviewed, dictated and finalized at location K. TERER HELPER IMPRESSION: Osteopenia. Moderate tricompartmental right knee arthritis with cho ndrocalcinosis.
== END ==
PROVIDERS: PCP Nurse Practitioner Family; Visit Provider Nurse Practitioner Family
DX: M85.861 Other specified disorders of bone density and structure, right lower leg (principal); M17.11 Unilateral primary osteoarthritis, right knee
CPT/HCPCS: 73562

== ENCOUNTER 2024-02-14 20:15 | Inpatient (IN) | payer MEDICARE, OTHER, SELFPAY ==
--- NOTE | ~2024-02-14 | XR_ITS ---
EXAMINATION: XR chest 1V portable DATE: 02/15/2024 01:01 INDICATION: Dehydration TECHNIQUE: frontal view of the chest was obtained. COMPARISON: Chest radiograph dated 06/25/2022 FINDINGS: Mild linear discoid atelectasis in the bilateral lower lung zones. No other airspace opacities, pulmo nary edema, pleural effusion or pneumothorax. The cardiomediastinal silhouette is within normal limit s for AP technique. Dual lead pacemaker seen with leads projecting over the expected locations of the right atrium and right ventricle. IMPRESSION: 1. Mild discoid atelectasis in the bilateral lower lungs. Reviewed, dictated and finalized at location A.
--- NOTE | ~2024-02-14 | US_ITS ---
EXAMINATION: US venous doppler [facility] DATE: 02/14/2024 23:20 INDICATION: Right calf pain and swelling, history of DVT. TECHNIQUE: Grayscale images without and with compression and Doppler images of the bilateral lower ex tremity veins were obtained. COMPARISON: 06/15/2022 FINDINGS: The right common femoral vein, profunda (deep) femoral vein, femoral vein, popliteal vein, peroneal v ein, posterior tibial veins, and greater saphenous vein are patent. The left common femoral vein, profunda (deep) femoral vein, femoral vein, popliteal vein, peroneal v ein, posterior tibial veins, and greater saphenous vein are patent. IMPRESSION: Patent bilateral lower extremity veins. No evidence of deep venous thrombosis. Reviewed, dictated and finalized at location K.
[2024-02-14 20:27] VITALS: BP 99/51; PULSE 59; RESP 18; TEMP 36.4; O2SAT 96
--- NOTE | 2024-02-14 22:00 | PC.NURSE ---
Pt family member corky approached this RN in C side hallway asking when a doctor would be in to see the patient. Family member advised that the EDP makes rounds on his patients so I do not have an exact time frame. Family member stated she worked here 16 years ago and that that fast track doctor should be to see the patient sooner since she has not had any labs or scans done. Family member was informed that we do not have a fast track doctor. We only have a doctor and PAs that see patients on both sides. Family member said okay and corky went back to patients room.
[2024-02-14 23:43] LABS: Basophils Absolute Auto 0.1 K/mm3 (0.0-0.1); Basophils Percent Auto 0.7 % (0.2-1.2); Eosinophils Absolute Auto 0.6 K/mm3 (0-0.3); Eosinophils Percent Auto 6.3 % (0-4.4); Hematocrit 41.2 % (37.0-47.0); Hemoglobin 13.5 g/dL (12.0-15.0); Immature Granulocyte Absolute 0.06 K/mm3 (0.00-0.031); Immature Granulocyte Percent A 0.7 % (0-0.5); Lymphocytes Absolute Auto 2.87 K/mm3 (0.9-3.2); Lymphocytes Percent Auto 32.9 % (18.3-44.2); Mean Corpuscular HGB Conc 32.8 g/dl (32-36); Mean Corpuscular Hemoglobin 28.2 pg (26-34); Mean Corpuscular Volume 86.2 fl (80-100); Mean Platelet Volume 12.4 fl (7.4-10.4); Monocytes Absolute Auto 0.9 K/mm3 (0.1-0.6); Monocytes Percent Auto 10.1 % (2.6-8.5); Neutrophils Absolute Auto 4.3 K/mm3 (1.3-6.7); Neutrophils Percent Auto 49.3 % (45.5-73.1); Platelet Count Result 116 k/mm3 (150-375); Red Blood Count 4.78 M/mm3 (4.2-5.4); Red Cell Distribution Width 14.7 % (11.5-14.5); White Blood Count 8.7 K/mm3 (4.5-10.0)
[2024-02-14 23:53] LABS: Prothrombin Time 13.7 Seconds (11.1-14.7)
[2024-02-14 23:54] LABS: Partial Thromboplastin Time 32.5 Seconds (22.3-36.8)
[2024-02-14 23:55] LABS: Anion Gap 12 mmol/L (4-12); Blood Urea Nitrogen 104 mg/dL (7-17); Calcium 9.7 mg/dL (8.4-10.2); Carbon Dioxide 21 mmol/L (22-30); Chloride 101 mmol/L (98-107); Estimated Glomerular Filt Rate 21; Glucose 147 mg/dL (65-110); Potassium 5.3 mmol/L (3.4-5.0); Sodium 134 mmol/L (137-145)
--- NOTE | 2024-02-15 00:30 | ED.GENADULT ---
HPI - General Adult General Chief complaint: Extremity Problem,Nontraumatic Stated complaint: leg pain Time Seen by Provider: 02/14/24 21:37 History of Present Illness HPI narrative: This is an 88-year-old female with a history DVT and peripheral neuropathy presenting with lower extremity pain. Patient walked more than usual yesterday. Now she has pain all down her right leg. She took Tylenol for pain control. Patient is supposed to be taking gabapentin but did not take it tonight. Patient denies any falls, fevers or skin changes. No use of blood thinners. Patient had 1 episode nausea vomiting yesterday. no fevers/abdominal pain/diarrhea. Related Data Home Medications Medication Instructions Recorded Confirmed ergocalciferol (vitamin D2) 50 mcg 50 mcg PO DAILY 01/18/24 01/20/24 (2,000 unit) capsule Allergies Allergy/AdvReac Type Severity Reaction Status Date / Time clarithromycin Allergy Swelling Verified 02/14/24 21:17 of Lip/Tongue/Throat doxycycline Allergy Swelling Verified 02/14/24 21:17 of Lip/Tongue/Throat esomeprazole Allergy Swelling Verified 02/14/24 21:17 of Lip/Tongue/Throat iron Allergy Swelling Verified 02/14/24 21:17 of Lip/Tongue/Throat magnesium Allergy Swelling Verified 02/14/24 21:17 of Lip/Tongue/Throat naproxen Allergy Swelling Verified 02/14/24 21:17 of Lip/Tongue/Throat Penicillins Allergy Swelling Verified 02/14/24 21:17 of Lip/Tongue/Throat Sulfa (Sulfonamide Allergy Swelling Verified 02/14/24 21:17 Antibiotics) of Lip/Tongue/Throat tetracycline Allergy Swelling Verified 02/14/24 21:17 of Lip/Tongue/Throat PMFSH Past Medical History Medical History Blepharitis of both eyes Bronchitis Carpal tunnel syndrome CHF (congestive heart failure) Diabetes 1.5, managed as type 2 Diabetes mellitus Dysuria Elevated uric acid in blood Encounter to establish care Hyperlipidemia Hypertension Interstitial cystitis Left leg DVT Otitis media of both ears Pacemaker Pancreatitis Pneumonia Rheumatic fever Right knee pain Tendinitis Surgical History Surgical History History of appendectomy History of hysterectomy History of left knee replacement S/P cholecystectomy Status post total hip replacement, right Family History Family History Mother Acute myocardial infarction Diabetes mellitus Brain cancer Father Acute myocardial infarction Cerebrovascular accident Heart disease Hypertension Cancer Sibling Parkinson disease Social History Social History Social History: Patient currently lives with her son. Patient does have 3 sons however want just . Patient just recently moved up here from [place] and is currently living in [place]. Patient wishes to be a full code at this time. Smoking status: Never smoker Alcohol intake: never Substance use: never Do You Feel Safe in your Home?: Yes Lack of Transportation: No Lack of Food: Never True Current Housing: I Have Housing Concerned About Future Housing: No Difficulty Paying Gas/Electric Bills: No Difficulty Paying for Meds: No Currently Unemployed: No Education: High School Diploma/GED Difficulty w/ Childcare or Family Care: No Living arrangements: with family Additional living arrangements comments: Lives with her son and daughter in law Occupation/Education: retired Additional occupation/education comments: farm Gender identity (if verbalized by the patient): Female Sexual Orientation (if Verbalized by the Patient): Straight or Heterosexual Spiritual care concerns: No Agree to blood products: Yes Exam Narrative: APPEARANCE: No apparent distre
--- NOTE | 2024-02-15 00:38 | ECG_ITS ---
Test Date: 2024-02-15 01:14:28 Measurements Intervals [place] Rate: 60 P: 220 ID: [id number] QRS: -75 QRSD: 146 T: 48 QT: 469 QTc: 469 Interpretive Statements ELECTRONIC ATRIAL PACEMAKER RIGHT BUNDLE BRANCH BLOCK LEFT ANTERIOR FASCICULAR BLOCK BASELINE ARTIFACT- I, II, AVR, AVL, AVF, V4-V6 ABNORMAL ECG No previous ECG available for comparison Electronically Signed On 02-15-2024 07:14:46 CDT by Yeison Hensley D.O.
[2024-02-15 00:57] LABS: Creatine Kinase 73 U/L (30-135)
[2024-02-15 01:18] LABS: Appearance Urine Cloudy (Clear); Bacteria Urine 3+ /hpf; Bilirubin Urine Negative (Negative); Blood Urine Negative (Negative); Color Urine Yellow (Yellow); Glucose Urine UA 2+ mg/dL (Negative); Ketones Urine Negative (Negative); Leukocyte Esterase Ur 2+ LEU/UL (Negative); Nitrate Urine Positive (Negative); Non Pathogenic Casts 0-2; Protein Urine 1+ mg/dL (Negative); RBC Urine 0-2 /hpf (0-2); Specific Grav Ur 1.013 (1.001-1.035); Squamous Epithelial Cell Urine Occasional /hpf (Few); Urobilinogen Urine 0.2 mg/dL (<2.0); WBC Urine 51-100 /hpf (0-3)
[2024-02-15] MEDS: SODIUM ZIRCONIUM CYCLOSILICATE 10 GM POWD.PACK PO (01:22)
[2024-02-15] MEDS: LACTATED RINGERS 1,000 ML 999 ML IV CONT (01:23)
[2024-02-15] MEDS: GABAPENTIN 300 MG CAPSULE 600 MG PO (01:24)
[2024-02-15 01:30] LABS: Add Urine Microscopic? YES
[2024-02-15 02:49] VITALS: BP 130/52; PULSE 64; RESP 17; O2SAT 98
[2024-02-15] MEDS: LACTATED RINGERS 1,000 ML 100 ML IV CONT (03:40)
--- NOTE | 2024-02-15 04:25 | ADMGEN ---
This patient, Chloe Fontaine, was admitted to [facility] Surg Room 312-01. Patient/family oriented to hospital policies and general routines including ID bracelet, bed and alarms, visiting hours, pain management, procedures, bathroom and other care routines, personal items, smoking policy, room service/diet, and visiting hours. Information on how to activate the Rapid Response Team has been discussed. Patient/Family are encouraged to report perceived risks to care and to ask questions if they do not understand what they are told or what they should do.
[2024-02-15] MEDS: ACETAMINOPHEN 325 MG TABLET 650 MG PO (05:15)
[2024-02-15 05:48] VITALS: BP 151/53; PULSE 66; RESP 16; TEMP 36.2; O2SAT 99
[2024-02-15 05:49] VITALS: BMI 37.6
--- NOTE | 2024-02-15 07:51 | PM.IMHP ---
H&P: HPI History of Present Illness Date/Time: 02/15/24 07:51 Chief Complaint: leg pain Narrative: This is an 88-year-old female with a significant past medical history DVT, peripheral neuropathy, type 2 diabetes mellitus,, hypertension, hyperlipidemia, pacemaker, pancreatitis presents since lower extremity pain. Patient is not the best historian and most of history of presenting illness was obtained from the chart. Patient stated after she was walking yesterday she had unusual pain in her right leg that was unrelieved by Tylenol. Patient denies any fever, chills,, diarrhea chest pain shortness a abdominal.. Patient endorses fatigue and burning with urination for the past few weeks. Workup in the hospital included venous Doppler study which showed patent bilateral lower extremity veins with no evidence of DVT. Chest x-ray showed mild discoid atelectasis in bilateral lower lung zones. Initial labs shown a normal white blood cell count of 8.7, platelet count 116, sodium 134, potassium 5.3, bicarb 21, creatinine 2.2, EGFR 21, total CK 73. A UA was obtained and showed 1+ urine protein, 2+ glucose positive nitrate, 2+ leukocytes, 50-200 urine WBC, 3+ bacteria. Urine culture was obtained and is pending. Last echo from 06/15/2022 was reviewed showed a normal LV systolic function with estimated EF of 60-65%, grade 1 diastolic dysfunction. Patient was given 1 L of LR, Lokelma 10 g, Neurontin, Tylenol, and Rocephin while in the ED. Review of Systems Review of Systems: All systems reviewed & are unremarkable except as noted in HPI and below Constitutional: Constitutional: Reports as per HPI and Reports no additional constitutional complaints Eyes: Eyes: Reports as per HPI and Reports no additional eye complaints ENT: Reports system reviewed and no additional complaints, except as documented and Reports as per HPI Cardiovascular: Cardiovascular: Reports as per HPI and Reports no additional cardiovascular complaints Respiratory: Respiratory: Reports as per HPI and Reports no additional respiratory complaints Gastrointestinal: Gastrointestinal: Reports as per HPI and Reports no additional gastrointestinal complaints Genitourinary: Genitourinary: Reports no additional female genitourinary complaints and Reports as per HPI Musculoskeletal: Musculoskeletal: Reports no additional musculoskeletal complaints and Reports as per HPI Integumentary/Breasts: Skin/Breast: Reports system reviewed and no additional complaints, except as docu and Reports as per HPI Neurologic: Reports system reviewed and no additional complaints, except as documented and Reports as per HPI Psychiatric: Psychiatric: Reports no additional psychiatric complaints and Reports as per HPI ON LICENSE OF [facility] Past Medical History Medical History Blepharitis of both eyes Bronchitis Carpal tunnel syndrome CHF (congestive heart failure) Diabetes 1.5, managed as type 2 Diabetes mellitus Dysuria Elevated uric acid in blood Encounter to establish care Hyperlipidemia Hypertension Interstitial cystitis Left leg DVT Otitis media of both ears Pacemaker Pancreatitis Pneumonia Rheumatic fever Right knee pain Tendinitis Surgical History Surgical History History of appendectomy History of hysterectomy History of left knee replacement S/P cholecystectomy Status post total hip replacement, right Family History Family History Mother Acute myocardial infarction Diabetes mellitus Brain cancer Father Acute myocardial infarction Cerebrovascular accident Heart disease Hypertension Cancer Sibling Parkinson disease Social History Social History Social History: Patient currently lives with her son. Patient does have 3 sons however want just . Patient
[2024-02-15 09:15] LABS: Hematocrit 38.6 % (37.0-47.0); Hemoglobin 12.2 g/dL (12.0-15.0); Mean Corpuscular HGB Conc 31.6 g/dl (32-36); Mean Corpuscular Hemoglobin 27.9 pg (26-34); Mean Corpuscular Volume 88.3 fl (80-100); Mean Platelet Volume 12.6 fl (7.4-10.4); Platelet Count Result 107 k/mm3 (150-375); Red Blood Count 4.37 M/mm3 (4.2-5.4); Red Cell Distribution Width 14.6 % (11.5-14.5); White Blood Count 7.2 K/mm3 (4.5-10.0)
[2024-02-15 09:33] LABS: Alanine Aminotransferase 34 U/L (6-35); Albumin Level 3.3 g/dL (3.5-5.1); Alkaline Phosphatase 123 U/L (38-126); Anion Gap 8 mmol/L (4-12); Aspartate Amino Transferase 38 U/L (14-36); Bilirubin,Total 0.2 mg/dL (0.2-1.3); Blood Urea Nitrogen 90 mg/dL (7-17); Calcium 9.3 mg/dL (8.4-10.2); Carbon Dioxide 19 mmol/L (22-30); Chloride 109 mmol/L (98-107); Estimated Glomerular Filt Rate 28; Glucose 118 mg/dL (65-110); Sodium 136 mmol/L (137-145)
[2024-02-15] MEDS: EMPAGLIFLOZIN 25 MG TABLET PO (09:36)
[2024-02-15] MEDS: lisinopriL 10 MG TABLET PO (09:36)
[2024-02-15] MEDS: ATORVASTATIN 40 MG TABLET PO (09:36)
[2024-02-15] MEDS: carvediloL 6.25 MG TABLET PO ×2 (09:36→16:25)
[2024-02-15] MEDS: GABAPENTIN 100 MG CAPSULE PO ×3 (09:36→16:25)
[2024-02-15] MEDS: FLUoxetine HCL 20 MG CAPSULE PO (09:36)
[2024-02-15] MEDS: ENOXAPARIN 30 MG/0.3 ML SYRINGE SUB-Q (09:36)
[2024-02-15] MEDS: allopurinoL 300 MG TABLET PO (09:36)
[2024-02-15] MEDS: BUMETANIDE 1 MG TABLET PO (09:37)
[2024-02-15] MEDS: INSULIN ASPART (*BKC) 100 UNITS/ML SUB-Q (12:04)
--- NOTE | 2024-02-15 12:09 | PCPTNOTE ---
On 02/15/24, the student, [Aysha Coffey], provided care and completed [facility] documentation on this patient. I have reviewed the student's documentation and agree with the findings.
[2024-02-15 13:01] LABS: Glucose Point of Care 203 mg/dl (65-105)
[2024-02-15 14:00] VITALS: BP 174/55; PULSE 64; RESP 20; TEMP 36.3; O2SAT 99
[2024-02-15 16:33] LABS: Glucose Point of Care 84 mg/dl (65-105)
[2024-02-15 20:00] VITALS: O2SAT 99
[2024-02-15 21:23] LABS: Glucose Point of Care 119 mg/dl (65-105)
[2024-02-15] MEDS: AMITRIPTYLINE HCL 10 MG TABLET PO (21:26)
[2024-02-15 21:53] VITALS: BP 135/45; PULSE 60; RESP 14; TEMP 36.8; O2SAT 97
[2024-02-16 05:27] VITALS: BP 122/45; PULSE 62; RESP 18; TEMP 36.4; O2SAT 97
[2024-02-16 06:53] LABS: Basophils Absolute Auto 0.1 K/mm3 (0.0-0.1); Basophils Percent Auto 0.8 % (0.2-1.2); Eosinophils Absolute Auto 0.5 K/mm3 (0-0.3); Eosinophils Percent Auto 6.3 % (0-4.4); Hematocrit 39.5 % (37.0-47.0); Hemoglobin 12.4 g/dL (12.0-15.0); Immature Granulocyte Absolute 0.04 K/mm3 (0.00-0.031); Immature Granulocyte Percent A 0.5 % (0-0.5); Lymphocytes Absolute Auto 2.46 K/mm3 (0.9-3.2); Lymphocytes Percent Auto 32.1 % (18.3-44.2); Mean Corpuscular HGB Conc 31.4 g/dl (32-36); Mean Corpuscular Hemoglobin 27.9 pg (26-34); Mean Corpuscular Volume 88.8 fl (80-100); Mean Platelet Volume 12.4 fl (7.4-10.4); Monocytes Absolute Auto 0.6 K/mm3 (0.1-0.6); Monocytes Percent Auto 8.2 % (2.6-8.5); Neutrophils Percent Auto 52.1 % (45.5-73.1); Platelet Count Result 115 k/mm3 (150-375); Red Blood Count 4.45 M/mm3 (4.2-5.4); Red Cell Distribution Width 14.8 % (11.5-14.5); White Blood Count 7.7 K/mm3 (4.5-10.0)
[2024-02-16 07:09] LABS: Alanine Aminotransferase 46 U/L (6-35); Albumin Level 3.5 g/dL (3.5-5.1); Alkaline Phosphatase 117 U/L (38-126); Anion Gap 8 mmol/L (4-12); Aspartate Amino Transferase 52 U/L (14-36); Bilirubin,Total 0.4 mg/dL (0.2-1.3); Blood Urea Nitrogen 74 mg/dL (7-17); Calcium 9.1 mg/dL (8.4-10.2); Carbon Dioxide 21 mmol/L (22-30); Chloride 107 mmol/L (98-107); Estimated Glomerular Filt Rate 33; Glucose 100 mg/dL (65-110); Magnesium 2.2 mg/dL (1.6-2.3); Potassium 5.1 mmol/L (3.4-5.0); Sodium 136 mmol/L (137-145)
[2024-02-16 08:13] LABS: Glucose Point of Care 115 mg/dl (65-105)
[2024-02-16] MEDS: GABAPENTIN 100 MG CAPSULE PO ×3 (08:24→16:39)
[2024-02-16] MEDS: lisinopriL 10 MG TABLET PO (08:24)
[2024-02-16] MEDS: EMPAGLIFLOZIN 25 MG TABLET PO (08:24)
[2024-02-16] MEDS: FLUoxetine HCL 20 MG CAPSULE PO (08:24)
[2024-02-16] MEDS: ATORVASTATIN 40 MG TABLET PO (08:24)
[2024-02-16] MEDS: BUMETANIDE 1 MG TABLET PO (08:24)
[2024-02-16] MEDS: allopurinoL 300 MG TABLET PO (08:24)
[2024-02-16 08:25] VITALS: PULSE 64
[2024-02-16] MEDS: ENOXAPARIN 40 MG/0.4 ML SYRINGE SUB-Q (08:25)
[2024-02-16] MEDS: carvediloL 6.25 MG TABLET PO ×2 (08:25→16:39)
[2024-02-16] MEDS: ACETAMINOPHEN 325 MG TABLET 650 MG PO (08:36)
[2024-02-16 08:55] VITALS: O2SAT 95
--- NOTE | 2024-02-16 11:18 | P.PNIM_ITS ---
Progress Note: A&P Assessment and Plan (1) Acute dehydration: Code(s): E86.0 - Dehydration Status: Acute Assessment and Plan: 02/15/24: * Patient was given 1 L of LR in the ED 02/16/24: * Patient appears to be euvolemic (2) IVY (acute kidney injury): Code(s): N17.9 - Acute kidney failure, unspecified Status: Acute Assessment and Plan: 02/15/24: * Likely secondary to dehydration * Sodium 134, creatinine 2.2 02/15/24: * Creatinine down 2.5, EGFR 33 * Continue to trend (3) Acute UTI: Code(s): N39.0 - Urinary tract infection, site not specified Status: Acute Assessment and Plan: 02/15/24: * UA showing 1+ urine protein, 2+ urine glucose, positive nitrate, 2+ leukocyte, 51-100 urine WBC, 3+ urine bacteria * Urine culture was obtained and pending * Started on Rocephin 02/16/24: * Urine culture showing E coli on preliminary read * Continue Rocephin (4) Calf pain: Code(s): M79.669 - Pain in unspecified lower leg Status: Acute Assessment and Plan: 02/15/24: * Likely secondary to dehydration and electrolyte imbalance * Ultrasound of lower extremity was negative for DVT * Neurontin started 02/16/24: * No change to current treatment plan (5) Diabetes mellitus: Code(s): E11.9 - Type 2 diabetes mellitus without complications Status: Acute Assessment and Plan: 02/15/24: * Blood sugars ranging 108-147 * Hgb A1C was 6.9 on July 01, 2023 * Will recheck hemoglobin A1c today * Accu checks AC/HS * Low dose SSI ordered * hypoglycemic protocol in place * Diabetic diet ordered * Patient currently on Jardiance 02/16/24: * No change to current treatment plan (6) CHF (congestive heart failure): Qualifiers: Heart failure chronicity: unspecified Heart failure type: unspecified Qualified Code(s): I50.9 - Heart failure, unspecified Code(s): I50.9 - Heart failure, unspecified Status: Acute Assessment and Plan: 02/15/24: * Chest x-ray only noted mild discord atelectasis in the bilateral lower lungs * Last echo reviewed and showed normal LV systolic function with an estimated EF of 60-65%, grade 1 diastolic dysfunction, mild to moderate tricuspid valve regurgitation. * Continue Coreg, Jardiance, lisinopril, Bumex 02/16/24: * No change to current treatment plan (7) Hypertension: Code(s): I10 - Essential (primary) hypertension Status: Chronic Assessment and Plan: 02/15/24: * Blood pressure ranging 130/52-151/53 * Continue lisinopril 02/16/24: * No change to current treatment plan (8) Hyperlipidemia: Code(s): E78.5 - Hyperlipidemia, unspecified Status: Acute Assessment and Plan: 02/15/24: * Continue aspirin and atorvastatin 02/16/24: * No change to current treatment plan (9) Pacemaker: Code(s): Z95.0 - Presence of cardiac pacemaker Status: Acute Assessment and Plan: 02/15/24: * Atrial pacemaker Time Spent With Patient Time with patient: 25 - 35 minutes Subjective Date/time seen: 02/16/24 11:18 Interval history: interval history: This is an 88-year-old female with a significant past medical history DVT, peripheral neuropathy, type 2 diabetes mellitus,, hypertension, hyperlipidemia, pacemaker, pancreatitis presents since lower extremity pain. Patient is not the best historian and most of history of presenting illness was obtained from the chart.
--- NOTE | 2024-02-16 11:18 | PM.IMPN ---
Progress Note: A&P Assessment and Plan (1) Acute dehydration: Code(s): E86.0 - Dehydration Status: Acute Assessment and Plan: 02/15/24: Patient was given 1 L of LR in the ED 02/16/24: Patient appears to be euvolemic (2) IVY (acute kidney injury): Code(s): N17.9 - Acute kidney failure, unspecified Status: Acute Assessment and Plan: 02/15/24: Likely secondary to dehydration Sodium 134, creatinine 2.2 02/15/24: Creatinine down 2.5, EGFR 33 Continue to trend (3) Acute UTI: Code(s): N39.0 - Urinary tract infection, site not specified Status: Acute Assessment and Plan: 02/15/24: UA showing 1+ urine protein, 2+ urine glucose, positive nitrate, 2+ leukocyte, 51-100 urine WBC, 3+ urine bacteria Urine culture was obtained and pending Started on Rocephin 02/16/24: Urine culture showing E coli on preliminary read Continue Rocephin (4) Calf pain: Code(s): M79.669 - Pain in unspecified lower leg Status: Acute Assessment and Plan: 02/15/24: Likely secondary to dehydration and electrolyte imbalance Ultrasound of lower extremity was negative for DVT Neurontin started 02/16/24: No change to current treatment plan (5) Diabetes mellitus: Code(s): E11.9 - Type 2 diabetes mellitus without complications Status: Acute Assessment and Plan: 02/15/24: Blood sugars ranging 108-147 Hgb A1C was 6.9 on July 01, 2023 Will recheck hemoglobin A1c today Accu checks AC/HS Low dose SSI ordered hypoglycemic protocol in place Diabetic diet ordered Patient currently on Jardiance 02/16/24: No change to current treatment plan (6) CHF (congestive heart failure): Qualifiers: Heart failure chronicity: unspecified Heart failure type: unspecified Qualified Code(s): I50.9 - Heart failure, unspecified Code(s): I50.9 - Heart failure, unspecified Status: Acute Assessment and Plan: 02/15/24: Chest x-ray only noted mild discord atelectasis in the bilateral lower lungs Last echo reviewed and showed normal LV systolic function with an estimated EF of 60-65%, grade 1 diastolic dysfunction, mild to moderate tricuspid valve regurgitation. Continue Coreg, Jardiance, lisinopril, Bumex 02/16/24: No change to current treatment plan (7) Hypertension: Code(s): I10 - Essential (primary) hypertension Status: Chronic Assessment and Plan: 02/15/24: Blood pressure ranging 130/52-151/53 Continue lisinopril 02/16/24: No change to current treatment plan (8) Hyperlipidemia: Code(s): E78.5 - Hyperlipidemia, unspecified Status: Acute Assessment and Plan: 02/15/24: Continue aspirin and atorvastatin 02/16/24: No change to current treatment plan (9) Pacemaker: Code(s): Z95.0 - Presence of cardiac pacemaker Status: Acute Assessment and Plan: 02/15/24: Atrial pacemaker Time Spent With Patient Time with patient: 25 - 35 minutes Subjective Date/time seen: 02/16/24 11:18 Interval history: interval history: This is an 88-year-old female with a significant past medical history DVT, peripheral neuropathy, type 2 diabetes mellitus,, hypertension, hyperlipidemia, pacemaker, pancreatitis presents since lower extremity pain. Patient is not the best historian and most of history of presenting illness was obtained from the chart. Patient stated after she was walking yesterday she had unusual pain in her right leg that was unrelieved by Tylenol. Patient denies any fever, chills,, diarrhea chest pain shortness a abdominal.. Patient endorses fatigue and burning with urination for the past few weeks. Workup in the hospital included venous Doppler study which showed patent bilateral lower extremity veins with no evidence of DVT. Chest x-ray showed mild discoid atelectasis in bilateral lower lung zones. Initial labs shown a normal white blood cell count of 8.7, pl
[2024-02-16 11:49] LABS: Glucose Point of Care 190 mg/dl (65-105)
[2024-02-16] MEDS: DICLOFENAC SODIUM 1% 100 GM GEL (*BKC) 1 APPLIC TOPICAL ×3 (13:16→21:22)
[2024-02-16 14:00] VITALS: BP 119/53; PULSE 60; RESP 12; TEMP 36.1; O2SAT 96
[2024-02-16 16:28] LABS: Glucose Point of Care 122 mg/dl (65-105)
[2024-02-16 16:39] VITALS: PULSE 62
[2024-02-16] MEDS: HYDROcodone/acetaminophen (*CRX) 5-325 MG TABLET 1 TAB PO (16:39)
[2024-02-16 20:17] VITALS: BP 129/48; PULSE 61; RESP 20; TEMP 36.2; O2SAT 95
[2024-02-16 21:13] LABS: Glucose Point of Care 141 mg/dl (65-105)
[2024-02-16] MEDS: AMITRIPTYLINE HCL 10 MG TABLET PO (21:21)
[2024-02-17] MEDS: HYDROcodone/acetaminophen (*CRX) 5-325 MG TABLET 1 TAB PO ×2 (00:31→07:49)
[2024-02-17 05:23] VITALS: BP 115/46; PULSE 60; RESP 22; TEMP 36; O2SAT 96
[2024-02-17 07:06] LABS: Basophils Absolute Auto 0.1 K/mm3 (0.0-0.1); Eosinophils Absolute Auto 0.5 K/mm3 (0-0.3); Eosinophils Percent Auto 6.7 % (0-4.4); Hematocrit 41.3 % (37.0-47.0); Immature Granulocyte Absolute 0.04 K/mm3 (0.00-0.031); Immature Granulocyte Percent A 0.6 % (0-0.5); Lymphocytes Absolute Auto 2.78 K/mm3 (0.9-3.2); Lymphocytes Percent Auto 41.4 % (18.3-44.2); Mean Corpuscular HGB Conc 31.5 g/dl (32-36); Mean Corpuscular Hemoglobin 28.1 pg (26-34); Mean Corpuscular Volume 89.4 fl (80-100); Mean Platelet Volume 12.5 fl (7.4-10.4); Monocytes Absolute Auto 0.6 K/mm3 (0.1-0.6); Monocytes Percent Auto 9.4 % (2.6-8.5); Neutrophils Absolute Auto 2.8 K/mm3 (1.3-6.7); Neutrophils Percent Auto 40.9 % (45.5-73.1); Platelet Count Result 114 k/mm3 (150-375); Red Blood Count 4.62 M/mm3 (4.2-5.4); Red Cell Distribution Width 14.9 % (11.5-14.5); White Blood Count 6.7 K/mm3 (4.5-10.0)
[2024-02-17 07:16] LABS: Alanine Aminotransferase 52 U/L (6-35); Albumin Level 3.7 g/dL (3.5-5.1); Alkaline Phosphatase 102 U/L (38-126); Anion Gap 7 mmol/L (4-12); Aspartate Amino Transferase 56 U/L (14-36); Bilirubin,Total 0.5 mg/dL (0.2-1.3); Blood Urea Nitrogen 71 mg/dL (7-17); Calcium 9.3 mg/dL (8.4-10.2); Carbon Dioxide 27 mmol/L (22-30); Chloride 101 mmol/L (98-107); Estimated Glomerular Filt Rate 30; Glucose 102 mg/dL (65-110); Magnesium 2.2 mg/dL (1.6-2.3); Potassium 5.4 mmol/L (3.4-5.0); Sodium 135 mmol/L (137-145)
[2024-02-17] MEDS: SODIUM ZIRCONIUM CYCLOSILICATE 10 GM POWD.PACK PO (07:49)
[2024-02-17 08:01] LABS: Glucose Point of Care 91 mg/dl (65-105)
[2024-02-17] MEDS: carvediloL 6.25 MG TABLET PO ×2 (09:50→16:46)
[2024-02-17] MEDS: EMPAGLIFLOZIN 25 MG TABLET PO (09:50)
[2024-02-17] MEDS: ATORVASTATIN 40 MG TABLET PO (09:50)
[2024-02-17] MEDS: lisinopriL 10 MG TABLET PO (09:50)
[2024-02-17] MEDS: DICLOFENAC SODIUM 1% 100 GM GEL (*BKC) 1 APPLIC TOPICAL ×4 (09:50→21:47)
[2024-02-17] MEDS: BUMETANIDE 1 MG TABLET PO (09:50)
[2024-02-17] MEDS: GABAPENTIN 100 MG CAPSULE PO ×3 (09:50→16:46)
[2024-02-17] MEDS: allopurinoL 300 MG TABLET PO (09:50)
[2024-02-17] MEDS: FLUoxetine HCL 20 MG CAPSULE PO (09:50)
[2024-02-17] MEDS: ENOXAPARIN 40 MG/0.4 ML SYRINGE SUB-Q (09:50)
[2024-02-17 12:42] LABS: Glucose Point of Care 155 mg/dl (65-105)
--- NOTE | 2024-02-17 12:54 | P.PNIM_ITS ---
Progress Note: A&P Assessment and Plan (1) Acute dehydration: Code(s): E86.0 - Dehydration Status: Acute Assessment and Plan: 02/15/24: * Patient was given 1 L of LR in the ED 02/16/24: * Patient appears to be euvolemic (2) IVY (acute kidney injury): Code(s): N17.9 - Acute kidney failure, unspecified Status: Acute Assessment and Plan: 02/15/24: * Likely secondary to dehydration * Sodium 134, creatinine 2.2 02/15/24: * Creatinine down 2.5, EGFR 33 * Continue to trend 02/17/24: * Creatinine down to 1.6 today * Continue to trend (3) Acute UTI: Code(s): N39.0 - Urinary tract infection, site not specified Status: Acute Assessment and Plan: 02/15/24: * UA showing 1+ urine protein, 2+ urine glucose, positive nitrate, 2+ leukocyte, 51-100 urine WBC, 3+ urine bacteria * Urine culture was obtained and pending * Started on Rocephin 02/16/24: * Urine culture showing E coli on preliminary read * Continue Rocephin 02/17/24: * Still awaiting sensitivities and final read * Continue with Rocephin (4) Calf pain: Code(s): M79.669 - Pain in unspecified lower leg Status: Acute Assessment and Plan: 02/15/24: * Likely secondary to dehydration and electrolyte imbalance * Ultrasound of lower extremity was negative for DVT * Neurontin started 02/16/24: * No change to current treatment plan (5) Diabetes mellitus: Code(s): E11.9 - Type 2 diabetes mellitus without complications Status: Acute Assessment and Plan: 02/15/24: * Blood sugars ranging 108-147 * Hgb A1C was 6.9 on July 01, 2023 * Will recheck hemoglobin A1c today * Accu checks AC/HS * Low dose SSI ordered * hypoglycemic protocol in place * Diabetic diet ordered * Patient currently on Jardiance 02/16/24: * No change to current treatment plan (6) CHF (congestive heart failure): Qualifiers: Heart failure chronicity: unspecified Heart failure type: unspecified Qualified Code(s): I50.9 - Heart failure, unspecified Code(s): I50.9 - Heart failure, unspecified Status: Acute Assessment and Plan: 02/15/24: * Chest x-ray only noted mild discord atelectasis in the bilateral lower lungs * Last echo reviewed and showed normal LV systolic function with an estimated EF of 60-65%, grade 1 diastolic dysfunction, mild to moderate tricuspid valve regurgitation. * Continue Coreg, Jardiance, lisinopril, Bumex 02/16/24: * No change to current treatment plan (7) Hypertension: Code(s): I10 - Essential (primary) hypertension Status: Chronic Assessment and Plan: 02/15/24: * Blood pressure ranging 130/52-151/53 * Continue lisinopril 02/16/24: * No change to current treatment plan (8) Hyperlipidemia: Code(s): E78.5 - Hyperlipidemia, unspecified Status: Acute Assessment and Plan: 02/15/24: * Continue aspirin and atorvastatin 02/16/24: * No change to current treatment plan (9) Pacemaker: Code(s): Z95.0 - Presence of cardiac pacemaker Status: Acute Assessment and Plan: 02/15/24: * Atrial pacemaker Subjective Date/time seen: 02/17/24 12:54 Interval history: interval history: This is an 88-year-old female with a significant past medical history DVT, peripheral neuropathy, type 2 diabetes mellitus,, hypertension, hyperlipidemia, pacemaker, pancreatitis presents since lower extremity pain.
--- NOTE | 2024-02-17 12:54 | PM.IMPN ---
Progress Note: A&P Assessment and Plan (1) Acute dehydration: Code(s): E86.0 - Dehydration Status: Acute Assessment and Plan: 02/15/24: Patient was given 1 L of LR in the ED 02/16/24: Patient appears to be euvolemic (2) IVY (acute kidney injury): Code(s): N17.9 - Acute kidney failure, unspecified Status: Acute Assessment and Plan: 02/15/24: Likely secondary to dehydration Sodium 134, creatinine 2.2 02/15/24: Creatinine down 2.5, EGFR 33 Continue to trend 02/17/24: Creatinine down to 1.6 today Continue to trend (3) Acute UTI: Code(s): N39.0 - Urinary tract infection, site not specified Status: Acute Assessment and Plan: 02/15/24: UA showing 1+ urine protein, 2+ urine glucose, positive nitrate, 2+ leukocyte, 51-100 urine WBC, 3+ urine bacteria Urine culture was obtained and pending Started on Rocephin 02/16/24: Urine culture showing E coli on preliminary read Continue Rocephin 02/17/24: Still awaiting sensitivities and final read Continue with Rocephin (4) Calf pain: Code(s): M79.669 - Pain in unspecified lower leg Status: Acute Assessment and Plan: 02/15/24: Likely secondary to dehydration and electrolyte imbalance Ultrasound of lower extremity was negative for DVT Neurontin started 02/16/24: No change to current treatment plan (5) Diabetes mellitus: Code(s): E11.9 - Type 2 diabetes mellitus without complications Status: Acute Assessment and Plan: 02/15/24: Blood sugars ranging 108-147 Hgb A1C was 6.9 on July 01, 2023 Will recheck hemoglobin A1c today Accu checks AC/HS Low dose SSI ordered hypoglycemic protocol in place Diabetic diet ordered Patient currently on Jardiance 02/16/24: No change to current treatment plan (6) CHF (congestive heart failure): Qualifiers: Heart failure chronicity: unspecified Heart failure type: unspecified Qualified Code(s): I50.9 - Heart failure, unspecified Code(s): I50.9 - Heart failure, unspecified Status: Acute Assessment and Plan: 02/15/24: Chest x-ray only noted mild discord atelectasis in the bilateral lower lungs Last echo reviewed and showed normal LV systolic function with an estimated EF of 60-65%, grade 1 diastolic dysfunction, mild to moderate tricuspid valve regurgitation. Continue Coreg, Jardiance, lisinopril, Bumex 02/16/24: No change to current treatment plan (7) Hypertension: Code(s): I10 - Essential (primary) hypertension Status: Chronic Assessment and Plan: 02/15/24: Blood pressure ranging 130/52-151/53 Continue lisinopril 02/16/24: No change to current treatment plan (8) Hyperlipidemia: Code(s): E78.5 - Hyperlipidemia, unspecified Status: Acute Assessment and Plan: 02/15/24: Continue aspirin and atorvastatin 02/16/24: No change to current treatment plan (9) Pacemaker: Code(s): Z95.0 - Presence of cardiac pacemaker Status: Acute Assessment and Plan: 02/15/24: Atrial pacemaker Subjective Date/time seen: 02/17/24 12:54 Interval history: interval history: This is an 88-year-old female with a significant past medical history DVT, peripheral neuropathy, type 2 diabetes mellitus,, hypertension, hyperlipidemia, pacemaker, pancreatitis presents since lower extremity pain. Patient is not the best historian and most of history of presenting illness was obtained from the chart. Patient stated after she was walking yesterday she had unusual pain in her right leg that was unrelieved by Tylenol. Patient denies any fever, chills,, diarrhea chest pain shortness a abdominal.. Patient endorses fatigue and burning with urination for the past few weeks. Workup in the hospital included venous Doppler study which showed patent bilateral lower extremity veins with no evidence of DVT. Chest x-ray showed mild discoid atelectasis in bilat
[2024-02-17 14:00] VITALS: BP 148/56; PULSE 72; RESP 21; TEMP 36.1; O2SAT 97
[2024-02-17 16:43] LABS: Glucose Point of Care 133 mg/dl (65-105)
[2024-02-17 20:55] VITALS: BP 144/59; PULSE 62; RESP 20; TEMP 36.4; O2SAT 96
[2024-02-17 21:25] LABS: Glucose Point of Care 152 mg/dl (65-105)
[2024-02-17] MEDS: CEFDINIR 300 MG CAPSULE PO (21:46)
[2024-02-17] MEDS: AMITRIPTYLINE HCL 10 MG TABLET PO (21:46)
[2024-02-17] MEDS: PHENAZOPYRIDINE HCL 100 MG TABLET 200 MG PO (21:49)
[2024-02-18 05:45] VITALS: BP 136/60; PULSE 60; RESP 18; TEMP 35.7; O2SAT 94
[2024-02-18] MEDS: PHENAZOPYRIDINE HCL 100 MG TABLET 200 MG PO (06:11)
[2024-02-18 06:47] LABS: Basophils Absolute Auto 0.1 K/mm3 (0.0-0.1); Eosinophils Absolute Auto 0.5 K/mm3 (0-0.3); Eosinophils Percent Auto 6.7 % (0-4.4); Hematocrit 39.9 % (37.0-47.0); Hemoglobin 12.8 g/dL (12.0-15.0); Immature Granulocyte Absolute 0.04 K/mm3 (0.00-0.031); Immature Granulocyte Percent A 0.6 % (0-0.5); Lymphocytes Absolute Auto 2.39 K/mm3 (0.9-3.2); Lymphocytes Percent Auto 32.9 % (18.3-44.2); Mean Corpuscular HGB Conc 32.1 g/dl (32-36); Mean Corpuscular Hemoglobin 28.4 pg (26-34); Mean Corpuscular Volume 88.7 fl (80-100); Mean Platelet Volume 12.6 fl (7.4-10.4); Monocytes Absolute Auto 0.7 K/mm3 (0.1-0.6); Neutrophils Absolute Auto 3.6 K/mm3 (1.3-6.7); Neutrophils Percent Auto 49.8 % (45.5-73.1); Platelet Count Result 100 k/mm3 (150-375); Red Cell Distribution Width 14.6 % (11.5-14.5); White Blood Count 7.3 K/mm3 (4.5-10.0)
[2024-02-18 06:57] LABS: Alanine Aminotransferase 56 U/L (6-35); Albumin Level 3.6 g/dL (3.5-5.1); Alkaline Phosphatase 123 U/L (38-126); Anion Gap 10 mmol/L (4-12); Aspartate Amino Transferase 58 U/L (14-36); Bilirubin,Total 0.4 mg/dL (0.2-1.3); Blood Urea Nitrogen 63 mg/dL (7-17); Calcium 9.4 mg/dL (8.4-10.2); Carbon Dioxide 21 mmol/L (22-30); Chloride 100 mmol/L (98-107); Estimated Glomerular Filt Rate 36; Glucose 108 mg/dL (65-110); Magnesium 2.1 mg/dL (1.6-2.3); Potassium 4.9 mmol/L (3.4-5.0); Sodium 131 mmol/L (137-145)
[2024-02-18 08:16] LABS: Glucose Point of Care 103 mg/dl (65-105)
[2024-02-18] MEDS: ATORVASTATIN 40 MG TABLET PO (08:43)
[2024-02-18] MEDS: FLUoxetine HCL 20 MG CAPSULE PO (08:43)
[2024-02-18] MEDS: EMPAGLIFLOZIN 25 MG TABLET PO (08:43)
[2024-02-18] MEDS: GABAPENTIN 100 MG CAPSULE PO (08:43)
[2024-02-18] MEDS: carvediloL 6.25 MG TABLET PO (08:43)
[2024-02-18] MEDS: BUMETANIDE 1 MG TABLET PO (08:44)
[2024-02-18] MEDS: lisinopriL 10 MG TABLET PO (08:44)
[2024-02-18] MEDS: DICLOFENAC SODIUM 1% 100 GM GEL (*BKC) 1 APPLIC TOPICAL (08:44)
[2024-02-18] MEDS: allopurinoL 300 MG TABLET PO (08:44)
[2024-02-18] MEDS: ENOXAPARIN 40 MG/0.4 ML SYRINGE SUB-Q (08:47)
--- NOTE | 2024-02-18 09:11 | PM.DS ---
DS: Admitting Diagnosis Discharge Date 02/18/24 Admitting Diagnosis Acute dehydration Acute kidney injury Acute UTI Calf pain Diabetes mellitus CHF Hypertension Hyperlipidemia Pacemaker DS: Discharge Diagnosis Discharge Diagnosis (1) Acute dehydration: Code(s): E86.0 - Dehydration Status: Acute (2) IVY (acute kidney injury): Code(s): N17.9 - Acute kidney failure, unspecified Status: Acute (3) Acute UTI: Code(s): N39.0 - Urinary tract infection, site not specified Status: Acute (4) Calf pain: Code(s): M79.669 - Pain in unspecified lower leg Status: Acute (5) Diabetes mellitus: Code(s): E11.9 - Type 2 diabetes mellitus without complications Status: Acute (6) CHF (congestive heart failure): Qualifiers: Heart failure chronicity: unspecified Heart failure type: unspecified Qualified Code(s): I50.9 - Heart failure, unspecified Code(s): I50.9 - Heart failure, unspecified Status: Acute (7) Hypertension: Code(s): I10 - Essential (primary) hypertension Status: Chronic (8) Hyperlipidemia: Code(s): E78.5 - Hyperlipidemia, unspecified Status: Acute (9) Pacemaker: Code(s): Z95.0 - Presence of cardiac pacemaker Status: Acute DS: Summary Hospital Course Reason for hospitalization: Acute dehydration Acute kidney injury Acute UTI Calf pain Diabetes mellitus CHF Hypertension Hyperlipidemia Pacemaker Hospital Course: This is an 88-year-old female with a significant past medical history DVT, peripheral neuropathy, type 2 diabetes mellitus,, hypertension, hyperlipidemia, pacemaker, pancreatitis presents since lower extremity pain. Patient is not the best historian and most of history of presenting illness was obtained from the chart. Patient stated after she was walking yesterday she had unusual pain in her right leg that was unrelieved by Tylenol. Patient denies any fever, chills,, diarrhea chest pain shortness a abdominal. Patient endorses fatigue and burning with urination for the past few weeks. Workup in the hospital included venous Doppler study which showed patent bilateral lower extremity veins with no evidence of DVT. Chest x-ray showed mild discoid atelectasis in bilateral lower lung zones. Initial labs shown a normal white blood cell count of 8.7, platelet count 116, sodium 134, potassium 5.3, bicarb 21, creatinine 2.2, EGFR 21, total CK 73. A UA was obtained and showed 1+ urine protein, 2+ glucose positive nitrate, 2+ leukocytes, 50-200 urine WBC, 3+ bacteria. Urine culture was obtained and is pending. Last echo from 06/15/2022 was reviewed showed a normal LV systolic function with estimated EF of 60-65%, grade 1 diastolic dysfunction. Patient was given 1 L of LR, Lokelma 10 g, Neurontin, Tylenol, and Rocephin while in the ED. UC shown e coli on final read. Patient transitioned to Cefdinir. She is stable for discharge at this time. She was notified of her low platelet count and will follow up outpatient at her primary care doctor's office for further work up and or referral to hematology. Final diagnosis: Acute kidney injury, acute UTI, dehydration, thrombocytopenia Status at Discharge Cognitive/behavioral status at discharge: Alert oriented x3 Functional status at discharge: uses cane/walker Overall status at discharge: patient is progressing back to baseline Time Spent with Patient Time attestation: Total time spent providing and/or coordinating discharge services: Time spent: Greater than 30 minutes Exam Narrative: General: In no acute distress, well nourished Cardiac: Normal S1 and S2. RRR, No murmur, gallops or friction rubs, peripheral pulses intact. Respiratory: Lungs clear to auscultation, no adventitious lung sounds, currently on room air Gastrointestinal: soft, non-distended, non-tender, normoactive bowel sounds. : voiding without difficulty. Neuro: Alert and oriented x
[2024-02-18 12:13] LABS: Glucose Point of Care 159 mg/dl (65-105)
== END 2024-02-18 12:45 | DRG 683 ==
LOC: ANHED 02-15 02:24 → ANH3MEDSUR 02-15 03:41
PROVIDERS: Admitting Provider Internal Medicine; Emergency Provider Emergency Medicine; PCP Nurse Practitioner Family; Visit Provider Nurse Practitioner Acute Care
DX: N17.9 Acute kidney failure, unspecified (principal); I50.32 Chronic diastolic (congestive) heart failure; N39.0 Urinary tract infection, site not specified; E86.0 Dehydration; B96.20 Unspecified Escherichia coli [E. coli] as the cause of diseases classified elsewhere; E13.42 Other specified diabetes mellitus with diabetic polyneuropathy; I11.0 Hypertensive heart disease with heart failure; E78.5 Hyperlipidemia, unspecified; M79.661 Pain in right lower leg; D69.6 Thrombocytopenia, unspecified; Z95.0 Presence of cardiac pacemaker; Z86.718 Personal history of other venous thrombosis and embolism; Z90.49 Acquired absence of other specified parts of digestive tract; Z90.710 Acquired absence of both cervix and uterus; Z96.652 Presence of left artificial knee joint; Z96.641 Presence of right artificial hip joint; M17.11 Unilateral primary osteoarthritis, right knee
CPT/HCPCS: 36415; 71045; 80048; 80053; 81001; 82550; 82948; 83036; 83735; 85025; 85027; 85610; 85730; 87077; 87086; 87088; 87186; 93005; 93970; 96361; 96365; 96372; 97110; 97116; 97161; 97165; 97530; 97535; 99285; A9270; G0378; J0696; J1650; J1815; J7120